=== PATIENT | male | born 1945 | race Caucasian/White ===

== ENCOUNTER 2017-09-25 16:47 | Inpatient (IN) | payer BC, MEDICARE, OTHER ==
[~2017-09-25] VITALS: Ht 175.3 cm; Wt 107.2 kg
[2017-09-25 17:25] LABS: BASO # 0.1 x10^3/uL (0.0-0.2); BASO % 1 % (0-3); EOS # 0.2 x10^3/uL (0.0-0.7); EOS % 3 % (0-3); HEMATOCRIT 40.1 % (39.0-53.0); HEMOGLOBIN 13.2 g/dL (13.0-17.5); LYMPH # 2.3 x10^3/uL (1.0-4.8); LYMPH % 31 % (24-48); MEAN CORPUSCULAR HEMOGLOBIN 28 pg (25-35); MEAN CORPUSCULAR HGB CONC 33 g/dL (31-37); MEAN CORPUSCULAR VOLUME 85 fL (79-100); MONO # 0.9 x10^3/uL (0.0-1.1); MONO % 11 % (0-9); NEUT # 4.1 x10^3uL (1.8-7.7); NEUT % 54 % (31-73); PLATELET COUNT 168 x10^3/uL (140-400); RED BLOOD COUNT 4.72 x10^6/uL (4.30-5.70); RED CELL DISTRIBUTION WIDTH 15.8 % (11.5-14.5); WHITE BLOOD COUNT 7.5 x10^3/uL (4.0-11.0)
[2017-09-25 17:36] LABS: ALBUMIN 2.9 g/dL (3.4-5.0); ALBUMIN/GLOBULIN RATIO 0.7 (1.0-1.7); CALCIUM 8.7 mg/dL (8.5-10.1); CREATININE 1.1 mg/dL (0.7-1.3); MAGNESIUM 1.9 mg/dL (1.8-2.4); TOTAL BILIRUBIN 0.3 mg/dL (0.2-1.0)
[2017-09-25 17:44] LABS: BACTERIA,URINE 0 /HPF (0-FEW); BILIRUBIN,URINE NEG (NEG); CLARITY,URINE CLEAR; COLOR,URINE YELLOW; GLUCOSE,URINE NEG (NEG); NITRITE,URINE NEG (NEG); RBC,URINE 0 /HPF (0-2); SQUAMOUS EPITHELIAL CELL,UR OCC /LPF; UROBILINOGEN,URINE 1 mg/dL (0.2 mg/dL); WBC,URINE OCC /HPF (0-4)
[2017-09-25 17:46] LABS: VAL ACID < 3 mcg/mL (50-100)
--- NOTE | 2017-09-25 17:47 | RAD ---
EXAM: Head CT without contrast. HISTORY: Altered mental status. TECHNIQUE: Computed tomographic images of the head were obtained without contrast. *One or more of the following individualized dose reduction techniques were utilized for this examination: 1. Automated exposure control. 2. Adjustment of the mA and/or kV according to patient size. 3. Use of iterative reconstruction technique. COMPARISON: None. FINDINGS: There is no acute or subacute extra-axial or intraparenchymal hemorrhage. There is no mass effect or midline shift. There is no hydrocephalus. There is cerebral atrophy. There are areas of hypodensity within the cerebral white matter, likely due to chronic small vessel disease. There may be a tiny chronic lacunar infarct within the left thalamus. The orbits are unremarkable. There is mild posterior right ethmoid sinus mucosal thickening. The mastoid air cells are clear. There are multiple calvarial lupillo holes. IMPRESSION: 1. No acute intracranial finding. Note is made that MRI is more sensitive for acute infarction. 2. Scattered areas of hypodensity within the cerebral white matter, likely due to chronic small vessel disease. 3. Possible tiny chronic lacunar infarct or dilated perivascular space within the left thalamus. Electronically signed by: Zita Kinney MD (09/25/2017 5:44 PM) [facility]
--- NOTE | 2017-09-25 18:11 | EKG ---
[address] [address] Test Date: 2017-09-25 Test Time: 17:49:36 Pat Name: ANDREE BURNETTE Department: Room: Gender: M Chief Accountant: CHRISTIANO : 1945 Requested By: JIMI ROSA Order Number: [id number] Reading MD: Ranjan Villanueva Measurements Intervals [place] Rate: 71 P: 49 MI: 178 QRS: -10 QRSD: 70 T: 16 QT: 374 QTc: 407 Interpretive Statements SINUS RHYTHM LEFTWARD AXIS QRS(T) CONTOUR ABNORMALITY CONSISTENT WITH INFERIOR INFARCT PROBABLY OLD ABNORMAL ECG RI6.01 No previous ECG available for comparison Electronically Signed On 10-08-2017 9:53:59 CDT by Ranjan Villanueva
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
--- NOTE | 2017-09-25 20:57 | PDOC ---
Exam Note: Anderson Note: Please also refer to the separate dictated note~for this date of service dictated separately.~Patient seen individually. Discussed the patient with Nursing staff reviewed the chart.~Reviewed interim history and current functioning. Reviewed vital signs,~Labs/ Radiology~and current medications noted below. Continue current treatment with the changes noted in the dictated addendum note Assessment: Vital Signs: Vital Signs Date Time Temp Pulse Resp B/P (MAP) Pulse Ox O2 Delivery O2 Flow Rate FiO2 09/25/17 18:50 84 18 162/91 (114) 97 Room Air 09/25/17 16:47 97.3 Labs: Laboratory Tests Test 09/25/17 17:04 09/25/17 17:10 White Blood Count 7.5 x10^3/uL (4.0-11.0) Red Blood Count 4.72 x10^6/uL (4.30-5.70) Hemoglobin 13.2 g/dL (13.0-17.5) Hematocrit 40.1 % (39.0-53.0) Mean Corpuscular Volume 85 fL (79-100) Mean Corpuscular Hemoglobin 28 pg (25-35) Mean Corpuscular Hemoglobin Concent 33 g/dL (31-37) Red Cell Distribution Width 15.8 % (11.5-14.5) H Platelet Count 168 x10^3/uL (140-400) Neutrophils (%) (Auto) 54 % (31-73) Lymphocytes (%) (Auto) 31 % (24-48) Monocytes (%) (Auto) 11 % (0-9) H Eosinophils (%) (Auto) 3 % (0-3) Basophils (%) (Auto) 1 % (0-3) Neutrophils # (Auto) 4.1 x10^3uL (1.8-7.7) Lymphocytes # (Auto) 2.3 x10^3/uL (1.0-4.8) Monocytes # (Auto) 0.9 x10^3/uL (0.0-1.1) Eosinophils # (Auto) 0.2 x10^3/uL (0.0-0.7) Basophils # (Auto) 0.1 x10^3/uL (0.0-0.2) Sodium Level 145 mmol/L (136-145) Potassium Level 4.0 mmol/L (3.5-5.1) Chloride Level 106 mmol/L (98-107) Carbon Dioxide Level 32 mmol/L (21-32) Anion Gap 7 (6-14) Blood Urea Nitrogen 13 mg/dL (8-26) Creatinine 1.1 mg/dL (0.7-1.3) Estimated GFR (Cockcroft-Gault) 66.0 BUN/Creatinine Ratio 12 (6-20) Glucose Level 144 mg/dL (70-99) H Calcium Level 8.7 mg/dL (8.5-10.1) Magnesium Level 1.9 mg/dL (1.8-2.4) Total Bilirubin 0.3 mg/dL (0.2-1.0) Aspartate Amino Transferase (AST) 21 U/L (15-37) Alanine Aminotransferase (ALT) 20 U/L (16-63) Alkaline Phosphatase 90 U/L (46-116) Total Protein 7.0 g/dL (6.4-8.2) Albumin 2.9 g/dL (3.4-5.0) L Albumin/Globulin Ratio 0.7 (1.0-1.7) L Lipase 85 U/L (73-393) Valproic Acid Level < 3 mcg/mL (50-100) L Valproic Acid Last Dose Date 09/25/14 Valproic Acid Last Dose Time 0800 Urine Collection Type Unknown Urine Color Yellow Urine Clarity Clear Urine pH 6.5 Urine Specific [place] 1.025 Urine Protein Neg (NEG-TRACE) Urine Glucose (UA) Neg mg/dL (NEG) Urine Ketones (Stick) 15 mg/dL (NEG) Urine Blood Neg (NEG) Urine Nitrite Neg (NEG) Urine Bilirubin Neg (NEG) Urine Urobilinogen Dipstick 1 mg/dL (0.2 mg/dL) Urine Leukocyte Esterase Neg (NEG) Urine RBC 0 /HPF (0-2) Urine WBC Occ /HPF (0-4) Urine Squamous Epithelial Cells Occ /LPF Urine Bacteria 0 /HPF (0-FEW) Urine Mucus Mod /LPF Current Medications: I have reviewed the current psychotropics carefully including drug interactions. Risk benefit ratio favors no change other than as noted in my dictated progress note. Diagnosis: Problems: (1) Mood swings (2) Aggressive behavior (3) Medical clearance for psychiatric admission ARLYN APPIAH MD Sep 25, 2017 20:57
[2017-09-25] MEDS ORDERED: MAGN2400 PO (21:00)
[2017-09-25] MEDS ORDERED: MULT1TAB52 PO (21:00)
[2017-09-25] MEDS ORDERED: METO25TA4 PO (21:00)
[2017-09-25] MEDS ORDERED: DONE10TA61 PO (21:00)
[2017-09-25] MEDS ORDERED: CHOL10003 PO (21:00)
[2017-09-25] MEDS ORDERED: TRAZ50TA15 PO (21:00)
[2017-09-25] MEDS ORDERED: TAMS0.4C2 PO (21:00)
[2017-09-25] MEDS ORDERED: METF10003 PO (21:00)
[2017-09-25] MEDS ORDERED: OLAN15TA3 PO (21:00)
[2017-09-25] MEDS ORDERED: OLAN7.5T3 PO (21:00)
[2017-09-25] MEDS ORDERED: ATOR40TA59 PO (21:00)
[2017-09-25] MEDS ORDERED: ACET325T9 PO (21:00)
[2017-09-25] MEDS ORDERED: VENL150C6 PO (21:00)
[2017-09-25] MEDS ORDERED: SODI100P DT (21:00)
[2017-09-25] MEDS ORDERED: ASPI-630 PO (21:00)
[2017-09-25] MEDS ORDERED: MEMA10TA PO (21:00)
[2017-09-25] MEDS ORDERED: DIVA250T PO (21:00)
[2017-09-25] MEDS ORDERED: GLIP5TAB10 PO (21:00)
[2017-09-25] MEDS ORDERED: POLY17PO5 PO (21:00)
[2017-09-25] MEDS ORDERED: GLIP10TA13 PO (21:00)
[2017-09-25] MEDS ORDERED: BUSP10TA PO (21:00)
[2017-09-25] MEDS ORDERED: ACETAMINOPHEN 325 MG TABLET PO PRN ×2 (21:15)
[2017-09-25] MEDS ORDERED: MAGNESIUM HYDROXIDE 2,400 MG/30 ML ORAL.SUSP. PO PRN ×2 (21:15→21:30)
[2017-09-25] MEDS ORDERED: METHYL SALICYLATE/MENTHOL TOPICAL OINTMENT 29GM TUBE. TP PRN (21:15)
[2017-09-25] MEDS ORDERED: MAG HYDROX/AL HYDROX/SIMETH 30 ML ORAL.SUSP PO PRN (21:15)
[2017-09-25] MEDS: DONEPEZIL HCL 10 MG TABLET PO SCH (21:50)
[2017-09-25] MEDS: ATORVASTATIN CALCIUM 20 MG TABLET PO SCH (21:51)
[2017-09-25] MEDS: traZODone 50 MG TABLET. PO SCH (21:51)
[2017-09-25] MEDS: VENLAFAXINE 50 MG TABLET. PO SCH (21:51)
[2017-09-25] MEDS: DIVALPROEX ER 250 MG TAB.ER.24H. PO SCH (21:51)
[2017-09-25] MEDS: busPIRone 10 MG TABLET. PO SCH (21:51)
[2017-09-25] MEDS: METOPROLOL TART IMMED RELEASE 25 MG TABLET PO SCH (21:52)
[2017-09-25] MEDS: MEMANTINE 5 MG TABLET. PO SCH (21:52)
[2017-09-25 22:28] VITALS: BP 172/72
[2017-09-26 06:27] VITALS: BP 158/82
[2017-09-26] MEDS ORDERED: POTASSIUM NITRATE DT SCH (08:30)
[2017-09-26] MEDS ORDERED: SODIUM FLUORIDE DT SCH (08:30)
[2017-09-26] MEDS ORDERED: NON FORMULARY ITEM (Glipizide 10 MG) PO SCH (09:00)
[2017-09-26] MEDS: MEMANTINE 5 MG TABLET. PO SCH ×2 (09:05→20:03)
[2017-09-26] MEDS: METOPROLOL TART IMMED RELEASE 25 MG TABLET PO SCH ×2 (09:05→20:03)
[2017-09-26] MEDS: busPIRone 10 MG TABLET. PO SCH ×3 (09:05→20:01)
[2017-09-26] MEDS: VENLAFAXINE 50 MG TABLET. PO SCH ×3 (09:05→20:02)
[2017-09-26] MEDS: DIVALPROEX ER 250 MG TAB.ER.24H. PO SCH ×2 (09:05→20:02)
[2017-09-26] MEDS: glipiZIDE 5 MG TABLET PO SCH (09:08)
[2017-09-26] MEDS: TAMSULOSIN 0.4 MG CAP.ER.24H. PO SCH (09:08)
[2017-09-26] MEDS: OLANZapine 7.5 MG TABLET PO SCH (09:08)
[2017-09-26] MEDS: POLYETHYLENE GLYCOL 3350 17 GM PACKET. PO SCH (09:08)
[2017-09-26] MEDS: MULTIVITAMIN with MINERAL TABLET. PO SCH (09:08)
[2017-09-26] MEDS: ASPIRIN 81 MG TAB.CHEW PO SCH (09:08)
[2017-09-26] MEDS: CHOLECALCIFEROL (VITAMIN D3) 1,000 UNIT TABLET PO SCH (09:08)
[2017-09-26] MEDS: metFORMIN 500 MG TABLET PO SCH ×2 (09:09→18:14)
[2017-09-26 14:31] LABS: THYROID STIM HORMONE (TSH) 7.028 uIU/mL (0.358-3.740)
[2017-09-26 15:56] VITALS: BP 134/68
[2017-09-26 19:12] LABS: T3 TOTAL 95 ng/dL (71-180); THYROXINE 5.3 ug/dL (4.5-12.0)
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
[2017-09-26] MEDS: DONEPEZIL HCL 10 MG TABLET PO SCH (20:01)
[2017-09-26] MEDS: ATORVASTATIN CALCIUM 20 MG TABLET PO SCH (20:02)
[2017-09-26] MEDS: traZODone 50 MG TABLET. PO SCH (20:02)
--- NOTE | 2017-09-26 20:35 | PDOC ---
Exam Note: Anderson Note: Please also refer to the separate dictated note~for this date of service dictated separately.~Patient seen individually. Discussed the patient with Nursing staff reviewed the chart.~Reviewed interim history and current functioning. Reviewed vital signs,~Labs/ Radiology~and current medications noted below. Continue current treatment with the changes noted in the dictated addendum note Assessment: Vital Signs: Vital Signs Date Time Temp Pulse Resp B/P (MAP) Pulse Ox O2 Delivery O2 Flow Rate FiO2 09/26/17 20:03 79 134/68 09/26/17 15:56 98.0 17 96 09/25/17 20:10 Room Air I&O Intake and Output 09/26/17 07:00 Intake Total 240 ml Balance 240 ml Intake Oral 240 ml # Voids 1 Labs: Laboratory Tests Test 09/26/17 07:57 09/26/17 11:25 Glucose (Fingerstick) 126 mg/dL (70-99) H 183 mg/dL (70-99) H Current Medications: Meds: Current Medications Acetaminophen (Tylenol) 650 mg PRN Q6HRS PRN PO PAIN / TEMP; Start 09/25/17 at 21:15 Multi-Ingredient Ointment (Analgesic [place]) 1 nica PRN QID PRN TP MUSCLE PAIN; Start 09/25/17 at 21:15 Al Hydroxide/Mg Hydroxide (Mylanta Plus Xs) 15 ml PRN AFTMEALHC PRN PO DYSPEPSIA; Start 09/25/17 at 21:15 Magnesium Hydroxide (Milk Of Magnesia) 2,400 mg PRN QHS PRN PO CONSTIPATION; Start 09/25/17 at 21:15; Stop 09/25/17 at 21:25; Status DC Buspirone HCl (Buspar) 20 mg TID PO Last administered on 09/26/17at 20:01; Start 09/25/17 at 21:30 Divalproex Sodium (Depakote Er) 750 mg BID PO Last administered on 09/26/17at 20 :02; Start 09/25/17 at 21:30 Donepezil HCl (Aricept) 10 mg HS PO Last administered on 09/26/17at 20:01; Start 09/25/17 at 21:30 Memantine (Namenda) 5 mg BID PO Last administered on 09/26/17at 20:03; Start at 21:30 Olanzapine (ZyPREXA) 7.5 mg DAILY PO Last administered on 09/26/17 09:08; Start 09/26/17 at 09:00 Trazodone HCl (Desyrel) 50 mg QHS PO Last administered on 09/26/17 20:02; Start 09/25/17 at 21:30 Venlafaxine HCl (Effexor) 50 mg TID PO Last administered on 09/26/17 20:02; Start 09/25/17 at 21:30 Acetaminophen (Tylenol) 650 mg PRN Q6HRS PRN PO PAIN / TEMP; Start 09/25/17 at 21:15; Stop 09/25/17 at 21:18; Status DC Aspirin (Children'S Aspirin) 81 mg DAILY PO Last administered on 09/26/17 09: 08; Start 09/26/17 at 09:00 Vitamin D (Vitamin D3) 2,000 unit DAILY PO Last administered on 09/26/17 09:08 ; Start 09/26/17 at 09:00 Glipizide (Glucotrol) 15 mg DAILY PO Last administered on 09/26/17 09:08; Start 09/26/17 at 09:00 Metoprolol Tartrate (Lopressor) 25 mg BID PO Last administered on 09/26/17 20: 03; Start 09/25/17 at 21:30 Polyethylene Glycol (miraLAX) 17 gm DAILY PO Last administered on 09/26/17 09: 08; Start 09/26/17 at 09:00 Tamsulosin HCl (Flomax) 0.4 mg DAILY PO Last administered on 09/26/17 09:08; Start 09/26/17 at 09:00 Atorvastatin Calcium (Lipitor) 40 mg QHS PO Last administered on 09/26/17 20: 02; Start 09/25/17 at 21:30 Non-Formulary Medication (Glipizide ) 10 mg DAILY PO ; Start 09/26/17 at 09:00; Stop 09/26/17 at 09:00; Status DC Magnesium Hydroxide (Milk Of Magnesia) 4,800 mg PRN Q8HRS PRN PO CONSTIPATION; Start 09/25/17 at 21:30 Metformin HCl (Glucophage) 1,000 mg BIDWMEALS PO Last administered on at 18:14; Start 09/26/17 at 08:00 Multivitamins/ Calcium (Thera-M Plus) 1 tab DAILY PO Last administered on at 09:08; Start 09/26/17 at 09:00 Non-Formulary Medication (Sodium Fluoride/ Pot Nitrate (Prevident 5000 Enamel Protect)) 1 nica TIDPC DT ; Start 09/26/17 at 08:30; Stop 09/26/17 at 08:30; Status DC Active Scripts Active Reported Zyprexa (Olanzapine) 15 Mg Tablet 15 Mg PO Zyprexa (Olanzapine) 7.5 Mg Tablet 7.5 Mg PO DAILY Venlafaxine Hcl Er (Venlafaxine Hcl) 150 Mg Cap.er.24h 150 Mg PO DAILY Trazodone Hcl 50 Mg Tablet 50 Mg PO QHS Prevident 5000 Enamel Protect (Sodium Fluoride/Pot Nitrate) 100 Ml Paste..ml. 1 Nica DT TIDPC Miralax (Polyethylene Glycol 3350) 17 Gm Powd.pack 17 Gm PO DAILY Namenda (Memantine Hcl) 10 Mg Tablet 5 Mg PO BID Multivitamins (Multivitamin) 1 Each Tablet 1 Each PO DAILY Milk Of Magnesia (Magnesium Hydroxide) 2,400 Mg/10 Ml Oral.susp 4,800 Mg PO PRN Q8HRS PRN Metoprolol Tartrate 25 Mg Tablet 25 Mg PO BID Metformin Hcl 1,000 Mg Tablet 1,000 Mg PO BID Glipizide 5 Mg Tablet 5 Mg PO DAILY Glipizide 10 Mg Tablet 10 Mg PO DAILY Tamsulosin Hcl 0.4 Mg Cap.er.24h 0.4 Mg PO DAILY Depakote Er (Divalproex Sodium) 250 Mg Tab.er.24h 750 Mg PO BID Vitamin D3 (Cholecalciferol (Vitamin D3)) 1,000 Unit Tablet 2,000 Unit PO DAILY Buspirone Hcl 10 Mg Tablet 20 Mg PO TID Atorvastatin Calcium 40 Mg Tablet 40 Mg PO QHS Aspirin 81 Mg Tab.chew 81 Mg PO DAILY Aricept (Donepezil Hcl) 10 Mg Tablet 10 Mg PO HS Tylenol (Acetaminophen) 325 Mg Tablet 650 Mg PO PRN Q6HRS PRN I have reviewed the current psychotropics carefully including drug interactions. Risk benefit ratio favors no change other than as noted in my dictated progress note. Diagnosis: Problems: (1) Aggressive behavior (2) Medical clearance for psychiatric admission (3) Mood swings (4) Anxiety disorder (5) Dementia in Alzheimer's disease with delusions (6) Dementia in Alzheimer's disease with depression (7) Dementia, vascular, with delusions (8) Dementia, vascular, with depression (9) Impulse control disorder ARLYN APPIAH MD Sep 26, 2017 20:34
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
[2017-09-27 02:08] LABS: HEMOGLOBIN A1C 6.6 % (4.8-5.6)
[2017-09-27 06:22] VITALS: BP 148/79
[2017-09-27] MEDS: POLYETHYLENE GLYCOL 3350 17 GM PACKET. PO SCH (08:06)
[2017-09-27] MEDS: OLANZapine 7.5 MG TABLET PO SCH (08:10)
[2017-09-27] MEDS: DIVALPROEX ER 250 MG TAB.ER.24H. PO SCH (08:10)
[2017-09-27] MEDS: MULTIVITAMIN with MINERAL TABLET. PO SCH (08:10)
[2017-09-27] MEDS: ASPIRIN 81 MG TAB.CHEW PO SCH (08:11)
[2017-09-27] MEDS: VENLAFAXINE 50 MG TABLET. PO SCH ×2 (08:11→13:42)
[2017-09-27] MEDS: metFORMIN 500 MG TABLET PO SCH ×2 (08:11→17:27)
[2017-09-27] MEDS: TAMSULOSIN 0.4 MG CAP.ER.24H. PO SCH (08:11)
[2017-09-27] MEDS: MEMANTINE 5 MG TABLET. PO SCH ×2 (08:11→19:49)
[2017-09-27] MEDS: glipiZIDE 5 MG TABLET PO SCH (08:11)
[2017-09-27] MEDS: busPIRone 10 MG TABLET. PO SCH ×2 (08:11→19:52)
[2017-09-27] MEDS: CHOLECALCIFEROL (VITAMIN D3) 1,000 UNIT TABLET PO SCH (08:11)
[2017-09-27] MEDS: METOPROLOL TART IMMED RELEASE 25 MG TABLET PO SCH ×2 (08:12→19:49)
--- NOTE | 2017-09-27 10:20 | CONS ---
DATE OF CONSULTATION: 09/26/2017 REASON FOR CONSULTATION: Medical management. HISTORY OF PRESENT ILLNESS: The patient is a 72-year-old male patient, a resident of [facility], who was admitted on the account of being impulsive, combative with the resident. All this in the background of dementia with behavioral disorder and delusion. PAST MEDICAL HISTORY: Significant for type 2 diabetes, heart disease and subdural hemorrhage. PAST PSYCHIATRIC HISTORY: Significant for posttraumatic stress disorder, schizoaffective disorder, dementia, major depressive disorder and anxiety. PAST SURGICAL HISTORY: Unremarkable. SOCIAL HISTORY: He is a resident at [facility]. He does not smoke, drink alcohol or use any recreational drugs. ALLERGIES: He has no known drug allergies. MEDICATIONS: He is currently on following medications: He is on Aricept 10 mg at bedtime, tamsulosin 0.4 mg at bedtime, atorvastatin 40 mg at bedtime, metoprolol 25 mg twice a day, aspirin 81 mg once a day, Tylenol 650 mg every 6 hours, divalproex sodium 750 mg p.o. b.i.d., trazodone 50 mg at bedtime, venlafaxine 150 mg daily and olanzapine 7.5 mg daily, olanzapine 50 mg at bedtime, buspirone 20 mg 3 times a day, Namenda 5 mg twice a day, milk of magnesia 30 mL p.o. daily p.r.n. for constipation, polyethylene glycol 17 grams daily for constipation, metformin 1000 mg twice a day, glipizide 10 mg daily, vitamin D3 2000 international unit once a day, multivitamin 1 tablet once a day. FAMILY HISTORY: Unremarkable. SOCIAL HISTORY: He is a resident at [facility]. REVIEW OF SYSTEMS: As per history of present illness. PHYSICAL EXAMINATION GENERAL: When I saw him this afternoon, he was sitting in his chair, eating his supper and in no apparent distress. There is no pallor, jaundice, cyanosis, or thyromegaly. No jugular venous distension. No lower limb edema. VITAL SIGNS: His heart rate was 79, blood pressure 134/68, temperature was 98, respiratory rate was 17 and oxygen saturation was 96. NECK: Supple. HEART: Showed normal first and second sounds. No gallop, rub or murmur. CHEST: Clear to auscultation. No crepitation or rhonchi. ABDOMEN: Distended, soft, tender. NEUROLOGIC: He is awake, alert, responding appropriately. All cranial nerves intact. EXTREMITIES: He moves extremities without difficulty. He is mostly bedbound and wheelchair bound. LABORATORY DATA: Showed a white cell count 7500, hemoglobin 13, hematocrit 40, MCV 85 and platelet count of 168,000. His chemistry showed serum sodium of 145, potassium 4, chloride 106, bicarbonate 32, anion gap of 7, BUN 13, creatinine 1.1, estimated GFR was 66 mL per minute. His glucose was 144, calcium was 8.7, magnesium was 1.9. Total bilirubin, AST, ALT, alkaline phosphatase were normal. His total protein 7, albumin was 2.9. His lipase was 85. His serum iron was 52, TIBC was 262, percent saturation was 20%. His serum triglycerides 117, total cholesterol was 89, LDL was 56, VLDL was 23, HDL cholesterol was 30 and the ratio was 2. His vitamin B12 was 371, 25-hydroxy vitamin D was 33 and TSH was slightly elevated at 7.0-8. His urinalysis showed the urine was yellow, clear with a pH of 6.5, specific gravity of 1.025. The urine was negative for protein and glucose. There was trace of ketones, negative for blood, nitrite and leukocyte esterase, 0 rbc's and 0 wbc's, and no bacteria. His toxic screen showed valproic acid was less than 3. His CT scan of the head showed no acute intracranial finding. Note is made that MRI is more sensitive for acute infarction, scattered areas of hypodensity within the cerebral white matter, likely due to chronic small vessel disease, possible tiny chronic lacunar infarct with dilated perivascular space within the left thalamus. IMPRESSION: In summary, this is a 72-year-old male patient, who was admitted on the account of pulse being impulsive, combative with resident. All this in a background of dementia with behavioral disorder and delusions. His past medical history is significant for benign prostatic hypertrophy, hyperlipidemia, hypertension, type 2 diabetes. His vital signs and lab works seems all to be within acceptable range. His TSH slightly elevated, so I arranged for him to have T3, T4, free T4, and we will decide on further management accordingly. Thank you, Dr. Infante for allowing me to participate in the care of this patient. SHERRIE ZARATE MD DR: SHARAD/phuc JOB#: [id number] / [id number]
[2017-09-27 16:40] VITALS: BP 148/81
[2017-09-27] MEDS: ATORVASTATIN CALCIUM 20 MG TABLET PO SCH (19:48)
[2017-09-27] MEDS: traZODone 50 MG TABLET. PO SCH (19:48)
[2017-09-27] MEDS: DONEPEZIL HCL 10 MG TABLET PO SCH (19:49)
[2017-09-27] MEDS: DIVALPROEX 125 MG CAP.SPRINK PO SCH (19:52)
[2017-09-27] MEDS: PRAZOSIN 1 MG CAPSULE. PO SCH (19:54)
[2017-09-27] MEDS ORDERED: busPIRone 10 MG TABLET. PO SCH ×2 (21:00)
--- NOTE | 2017-09-27 21:18 | PDOC ---
Exam Note: Anderson Note: Please also refer to the separate dictated note~for this date of service dictated separately.~Patient seen individually. Discussed the patient with Nursing staff reviewed the chart.~Reviewed interim history and current functioning. Reviewed vital signs,~Labs/ Radiology~and current medications noted below. Continue current treatment with the changes noted in the dictated addendum note Assessment: Vital Signs: Vital Signs Date Time Temp Pulse Resp B/P (MAP) Pulse Ox O2 Delivery O2 Flow Rate FiO2 09/27/17 19:54 80 148/81 09/27/17 16:40 97.3 18 97 09/25/17 20:10 Room Air I&O Intake and Output 09/27/17 07:00 Intake Total 1200 ml Balance 1200 ml Intake Oral 1200 ml # Voids 1 # Bowel Movements 1 Labs: Laboratory Tests Test 09/27/17 07:22 Glucose (Fingerstick) 113 mg/dL (70-99) H Current Medications: Meds: Current Medications Acetaminophen (Tylenol) 650 mg PRN Q6HRS PRN PO PAIN / TEMP; Start 09/25/17 at 21:15 Multi-Ingredient Ointment (Analgesic [place]) 1 nica PRN QID PRN TP MUSCLE PAIN; Start 09/25/17 at 21:15 Al Hydroxide/Mg Hydroxide (Mylanta Plus Xs) 15 ml PRN AFTMEALHC PRN PO DYSPEPSIA; Start 09/25/17 at 21:15 Magnesium Hydroxide (Milk Of Magnesia) 2,400 mg PRN QHS PRN PO CONSTIPATION; Start 09/25/17 at 21:15; Stop 09/25/17 at 21:25; Status DC Buspirone HCl (Buspar) 20 mg TID PO Last administered on 09/27/17at 08:11; Start 09/25/17 at 21:30; Stop 09/27/17 at 13:30; Status DC Divalproex Sodium (Depakote Er) 750 mg BID PO Last administered on 09/27/17at 08 :10; Start 09/25/17 at 21:30; Stop 09/27/17 at 13:30; Status DC Donepezil HCl (Aricept) 10 mg HS PO Last administered on 09/27/17at 19:49; Start 09/25/17 at 21:30 Memantine (Namenda) 5 mg BID PO Last administered on 09/27/17 19:49; Start at 21:30 Olanzapine (ZyPREXA) 7.5 mg DAILY PO Last administered on 09/27/17 08:10; Start 09/26/17 at 09:00; Stop 09/27/17 at 13:30; Status DC Trazodone HCl (Desyrel) 50 mg QHS PO Last administered on 09/27/17 19:48; Start 09/25/17 at 21:30 Venlafaxine HCl (Effexor) 50 mg TID PO Last administered on 09/27/17 13:42; Start 09/25/17 at 21:30; Stop 09/27/17 at 18:11; Status DC Acetaminophen (Tylenol) 650 mg PRN Q6HRS PRN PO PAIN / TEMP; Start 09/25/17 at 21:15; Stop 09/25/17 at 21:18; Status DC Aspirin (Children'S Aspirin) 81 mg DAILY PO Last administered on 09/27/17 08: 11; Start 09/26/17 at 09:00 Vitamin D (Vitamin D3) 2,000 unit DAILY PO Last administered on 09/27/17 08:11 ; Start 09/26/17 at 09:00 Glipizide (Glucotrol) 15 mg DAILY PO Last administered on 09/27/17 08:11; Start 09/26/17 at 09:00 Metoprolol Tartrate (Lopressor) 25 mg BID PO Last administered on 09/27/17 19: 49; Start 09/25/17 at 21:30 Polyethylene Glycol (miraLAX) 17 gm DAILY PO Last administered on 09/27/17at 08: 06; Start 09/26/17 at 09:00 Tamsulosin HCl (Flomax) 0.4 mg DAILY PO Last administered on 09/27/17 08:11; Start 09/26/17 at 09:00 Atorvastatin Calcium (Lipitor) 40 mg QHS PO Last administered on 09/27/17 19: 48; Start 09/25/17 at 21:30 Non-Formulary Medication (Glipizide ) 10 mg DAILY PO ; Start 09/26/17 at 09:00; Stop 09/26/17 at 09:00; Status DC Magnesium Hydroxide (Milk Of Magnesia) 4,800 mg PRN Q8HRS PRN PO CONSTIPATION; Start 09/25/17 at 21:30 Metformin HCl (Glucophage) 1,000 mg BIDWMEALS PO Last administered on at 17:27; Start 09/26/17 at 08:00 Multivitamins/ Calcium (Thera-M Plus) 1 tab DAILY PO Last administered on at 08:10; Start 09/26/17 at 09:00 Non-Formulary Medication (Sodium Fluoride/ Pot Nitrate (Prevident 5000 Enamel Protect)) 1 nica TIDPC DT ; Start 09/26/17 at 08:30; Stop 09/26/17 at 08:30; Status DC Buspirone HCl (Buspar) 20 mg BID PO ; Start 09/27/17 at 21:00; Stop 09/27/17 at 21:00; Status DC Olanzapine (ZyPREXA) 5 mg DAILY PO ; Start 09/28/17 at 09:00 Divalproex Sodium (Depakote Sprinkles) 750 mg BID PO Last administered on at 19:52; Start 09/27/17 at 21:00 Buspirone HCl (Buspar) 10 mg BID PO ; Start 09/27/17 at 21:00; Stop 09/30/17 at 09:00; Status UNV Prazosin HCl (Minipress) 1 mg HS PO Last administered on 09/27/17at 19:54; Start 09/27/17 at 21:00 Buspirone HCl (Buspar) 10 mg BID PO ; Start 09/30/17 at 09:00 Buspirone HCl (Buspar) 20 mg BID PO Last administered on 09/27/17at 19:52; Start 09/27/17 at 21:00; Stop 09/29/17 at 21:01 Venlafaxine HCl (Effexor) 75 mg BID92 PO ; Start 09/28/17 at 09:00 Active Scripts Active Reported Zyprexa (Olanzapine) 15 Mg Tablet 15 Mg PO Zyprexa (Olanzapine) 7.5 Mg Tablet 7.5 Mg PO DAILY Venlafaxine Hcl Er (Venlafaxine Hcl) 150 Mg Cap.er.24h 150 Mg PO DAILY Trazodone Hcl 50 Mg Tablet 50 Mg PO QHS Prevident 5000 Enamel Protect (Sodium Fluoride/Pot Nitrate) 100 Ml Paste..ml. 1 Nica DT TIDPC Miralax (Polyethylene Glycol 3350) 17 Gm Powd.pack 17 Gm PO DAILY Namenda (Memantine Hcl) 10 Mg Tablet 5 Mg PO BID Multivitamins (Multivitamin) 1 Each Tablet 1 Each PO DAILY Milk Of Magnesia (Magnesium Hydroxide) 2,400 Mg/10 Ml Oral.susp 4,800 Mg PO PRN Q8HRS PRN Metoprolol Tartrate 25 Mg Tablet 25 Mg PO BID Metformin Hcl 1,000 Mg Tablet 1,000 Mg PO BID Glipizide 5 Mg Tablet 5 Mg PO DAILY Glipizide 10 Mg Tablet 10 Mg PO DAILY Tamsulosin Hcl 0.4 Mg Cap.er.24h 0.4 Mg PO DAILY Depakote Er (Divalproex Sodium) 250 Mg Tab.er.24h 750 Mg PO BID Vitamin D3 (Cholecalciferol (Vitamin D3)) 1,000 Unit Tablet 2,000 Unit PO DAILY Buspirone Hcl 10 Mg Tablet 20 Mg PO TID Atorvastatin Calcium 40 Mg Tablet 40 Mg PO QHS Aspirin 81 Mg Tab.chew 81 Mg PO DAILY Aricept (Donepezil Hcl) 10 Mg Tablet 10 Mg PO HS Tylenol (Acetaminophen) 325 Mg Tablet 650 Mg PO PRN Q6HRS PRN I have reviewed the current psychotropics carefully including drug interactions. Risk benefit ratio favors no change other than as noted in my dictated progress note. Diagnosis: Problems: (1) Aggressive behavior (2) Medical clearance for psychiatric admission (3) Mood swings (4) Anxiety disorder (5) Dementia in Alzheimer's disease with delusions (6) Dementia in Alzheimer's disease with depression (7) Dementia, vascular, with delusions (8) Dementia, vascular, with depression (9) Impulse control disorder ARLYN APPIAH MD Sep 27, 2017 21:18
[2017-09-28 06:04] VITALS: BP 126/63
[2017-09-28 08:13] LABS: VAL ACID 56 mcg/mL (50-100)
[2017-09-28] MEDS: glipiZIDE 5 MG TABLET PO SCH (08:36)
[2017-09-28] MEDS: TAMSULOSIN 0.4 MG CAP.ER.24H. PO SCH (08:36)
[2017-09-28] MEDS: CHOLECALCIFEROL (VITAMIN D3) 1,000 UNIT TABLET PO SCH (08:37)
[2017-09-28] MEDS: busPIRone 10 MG TABLET. PO SCH ×2 (08:37→19:38)
[2017-09-28] MEDS: MEMANTINE 5 MG TABLET. PO SCH ×2 (08:37→19:38)
[2017-09-28] MEDS: METOPROLOL TART IMMED RELEASE 25 MG TABLET PO SCH ×2 (08:37→19:39)
[2017-09-28] MEDS: metFORMIN 500 MG TABLET PO SCH ×2 (08:37→17:17)
[2017-09-28] MEDS: ASPIRIN 81 MG TAB.CHEW PO SCH (08:37)
[2017-09-28] MEDS: MULTIVITAMIN with MINERAL TABLET. PO SCH (08:37)
[2017-09-28] MEDS: POLYETHYLENE GLYCOL 3350 17 GM PACKET. PO SCH (08:37)
[2017-09-28] MEDS: DIVALPROEX 125 MG CAP.SPRINK PO SCH ×2 (08:38→19:39)
[2017-09-28] MEDS: VENLAFAXINE 75 MG TABLET. PO SCH ×2 (08:41→14:43)
[2017-09-28] MEDS: OLANZapine 5 MG TABLET PO SCH (08:42)
[2017-09-28 16:35] VITALS: BP 129/72
[2017-09-28] MEDS: PRAZOSIN 1 MG CAPSULE. PO SCH (19:38)
[2017-09-28] MEDS: traZODone 50 MG TABLET. PO SCH (19:38)
[2017-09-28] MEDS: DONEPEZIL HCL 10 MG TABLET PO SCH (19:38)
[2017-09-28] MEDS: ATORVASTATIN CALCIUM 20 MG TABLET PO SCH (19:39)
--- NOTE | 2017-09-28 23:06 | PDOC ---
Exam Note: Anderson Note: Please also refer to the separate dictated note~for this date of service dictated separately.~Patient seen individually. Discussed the patient with Nursing staff reviewed the chart.~Reviewed interim history and current functioning. Reviewed vital signs,~Labs/ Radiology~and current medications noted below. Continue current treatment with the changes noted in the dictated addendum note Assessment: Vital Signs: Vital Signs Date Time Temp Pulse Resp B/P (MAP) Pulse Ox O2 Delivery O2 Flow Rate FiO2 09/28/17 19:39 77 129/72 09/28/17 16:35 97.4 16 95 09/25/17 20:10 Room Air I&O Intake and Output 09/28/17 07:00 Intake Total 1260 ml Balance 1260 ml Intake Oral 1260 ml # Voids 2 Labs: Laboratory Tests Test 09/28/17 07:26 09/28/17 07:37 Valproic Acid Level 56 mcg/mL (50-100) Valproic Acid Last Dose Date 09/27/2016 Valproic Acid Last Dose Time 0900 Glucose (Fingerstick) 207 mg/dL (70-99) H Current Medications: Meds: Current Medications Acetaminophen (Tylenol) 650 mg PRN Q6HRS PRN PO PAIN / TEMP; Start 09/25/17 at 21:15 Multi-Ingredient Ointment (Analgesic [place]) 1 nica PRN QID PRN TP MUSCLE PAIN; Start 09/25/17 at 21:15 Al Hydroxide/Mg Hydroxide (Mylanta Plus Xs) 15 ml PRN AFTMEALHC PRN PO DYSPEPSIA; Start 09/25/17 at 21:15 Magnesium Hydroxide (Milk Of Magnesia) 2,400 mg PRN QHS PRN PO CONSTIPATION; Start 09/25/17 at 21:15; Stop 09/25/17 at 21:25; Status DC Buspirone HCl (Buspar) 20 mg TID PO Last administered on 09/27/17at 08:11; Start 09/25/17 at 21:30; Stop 09/27/17 at 13:30; Status DC Divalproex Sodium (Depakote Er) 750 mg BID PO Last administered on 09/27/17at 08 :10; Start 09/25/17 at 21:30; Stop 09/27/17 at 13:30; Status DC Donepezil HCl (Aricept) 10 mg HS PO Last administered on 09/28/17 19:38; Start 09/25/17 at 21:30 Memantine (Namenda) 5 mg BID PO Last administered on 09/28/17 19:38; Start at 21:30 Olanzapine (ZyPREXA) 7.5 mg DAILY PO Last administered on 09/27/17 08:10; Start 09/26/17 at 09:00; Stop 09/27/17 at 13:30; Status DC Trazodone HCl (Desyrel) 50 mg QHS PO Last administered on 09/28/17 19:38; Start 09/25/17 at 21:30 Venlafaxine HCl (Effexor) 50 mg TID PO Last administered on 09/27/17 13:42; Start 09/25/17 at 21:30; Stop 09/27/17 at 18:11; Status DC Acetaminophen (Tylenol) 650 mg PRN Q6HRS PRN PO PAIN / TEMP; Start 09/25/17 at 21:15; Stop 09/25/17 at 21:18; Status DC Aspirin (Children'S Aspirin) 81 mg DAILY PO Last administered on 09/28/17 08: 37; Start 09/26/17 at 09:00 Vitamin D (Vitamin D3) 2,000 unit DAILY PO Last administered on 09/28/17 08:37 ; Start 09/26/17 at 09:00 Glipizide (Glucotrol) 15 mg DAILY PO Last administered on 09/28/17 08:36; Start 09/26/17 at 09:00 Metoprolol Tartrate (Lopressor) 25 mg BID PO Last administered on 09/28/17 19: 39; Start 09/25/17 at 21:30 Polyethylene Glycol (miraLAX) 17 gm DAILY PO Last administered on 09/28/17 08: 37; Start 09/26/17 at 09:00 Tamsulosin HCl (Flomax) 0.4 mg DAILY PO Last administered on 09/28/17 08:36; Start 09/26/17 at 09:00 Atorvastatin Calcium (Lipitor) 40 mg QHS PO Last administered on 09/28/17 19: 39; Start 09/25/17 at 21:30 Non-Formulary Medication (Glipizide ) 10 mg DAILY PO ; Start 09/26/17 at 09:00; Stop 09/26/17 at 09:00; Status DC Magnesium Hydroxide (Milk Of Magnesia) 4,800 mg PRN Q8HRS PRN PO CONSTIPATION; Start 09/25/17 at 21:30 Metformin HCl (Glucophage) 1,000 mg BIDWMEALS PO Last administered on at 17:17; Start 09/26/17 at 08:00 Multivitamins/ Calcium (Thera-M Plus) 1 tab DAILY PO Last administered on at 08:37; Start 09/26/17 at 09:00 Non-Formulary Medication (Sodium Fluoride/ Pot Nitrate (Prevident 5000 Enamel Protect)) 1 nica TIDPC DT ; Start 09/26/17 at 08:30; Stop 09/26/17 at 08:30; Status DC Buspirone HCl (Buspar) 20 mg BID PO ; Start 09/27/17 at 21:00; Stop 09/27/17 at 21:00; Status DC Olanzapine (ZyPREXA) 5 mg DAILY PO Last administered on 09/28/17at 08:42; Start 09/28/17 at 09:00 Divalproex Sodium (Depakote Sprinkles) 750 mg BID PO Last administered on at 19:39; Start 09/27/17 at 21:00 Buspirone HCl (Buspar) 10 mg BID PO ; Start 09/27/17 at 21:00; Stop 09/30/17 at 09:00; Status UNV Prazosin HCl (Minipress) 1 mg HS PO Last administered on 09/28/17at 19:38; Start 09/27/17 at 21:00 Buspirone HCl (Buspar) 10 mg BID PO ; Start 09/30/17 at 09:00 Buspirone HCl (Buspar) 20 mg BID PO Last administered on 09/28/17at 19:38; Start 09/27/17 at 21:00; Stop 09/29/17 at 21:01 Venlafaxine HCl (Effexor) 75 mg BID92 PO Last administered on 09/28/17at 14:43; Start 09/28/17 at 09:00 Active Scripts Active Reported Zyprexa (Olanzapine) 15 Mg Tablet 15 Mg PO Zyprexa (Olanzapine) 7.5 Mg Tablet 7.5 Mg PO DAILY Venlafaxine Hcl Er (Venlafaxine Hcl) 150 Mg Cap.er.24h 150 Mg PO DAILY Trazodone Hcl 50 Mg Tablet 50 Mg PO QHS Prevident 5000 Enamel Protect (Sodium Fluoride/Pot Nitrate) 100 Ml Paste..ml. 1 Nica DT TIDPC Miralax (Polyethylene Glycol 3350) 17 Gm Powd.pack 17 Gm PO DAILY Namenda (Memantine Hcl) 10 Mg Tablet 5 Mg PO BID Multivitamins (Multivitamin) 1 Each Tablet 1 Each PO DAILY Milk Of Magnesia (Magnesium Hydroxide) 2,400 Mg/10 Ml Oral.susp 4,800 Mg PO PRN Q8HRS PRN Metoprolol Tartrate 25 Mg Tablet 25 Mg PO BID Metformin Hcl 1,000 Mg Tablet 1,000 Mg PO BID Glipizide 5 Mg Tablet 5 Mg PO DAILY Glipizide 10 Mg Tablet 10 Mg PO DAILY Tamsulosin Hcl 0.4 Mg Cap.er.24h 0.4 Mg PO DAILY Depakote Er (Divalproex Sodium) 250 Mg Tab.er.24h 750 Mg PO BID Vitamin D3 (Cholecalciferol (Vitamin D3)) 1,000 Unit Tablet 2,000 Unit PO DAILY Buspirone Hcl 10 Mg Tablet 20 Mg PO TID Atorvastatin Calcium 40 Mg Tablet 40 Mg PO QHS Aspirin 81 Mg Tab.chew 81 Mg PO DAILY Aricept (Donepezil Hcl) 10 Mg Tablet 10 Mg PO HS Tylenol (Acetaminophen) 325 Mg Tablet 650 Mg PO PRN Q6HRS PRN I have reviewed the current psychotropics carefully including drug interactions. Risk benefit ratio favors no change other than as noted in my dictated progress note. Diagnosis: Problems: (1) Aggressive behavior (2) Medical clearance for psychiatric admission (3) Mood swings (4) Anxiety disorder (5) Dementia in Alzheimer's disease with delusions (6) Dementia in Alzheimer's disease with depression (7) Dementia, vascular, with delusions (8) Dementia, vascular, with depression (9) Impulse control disorder ARLYN APPIAH MD Sep 28, 2017 23:05
[2017-09-29 06:47] VITALS: BP 140/74
[2017-09-29] MEDS: VENLAFAXINE 75 MG TABLET. PO SCH ×2 (09:35→13:31)
[2017-09-29] MEDS: metFORMIN 500 MG TABLET PO SCH ×2 (09:35→17:00)
[2017-09-29] MEDS: DIVALPROEX 125 MG CAP.SPRINK PO SCH ×2 (09:35→20:50)
[2017-09-29] MEDS: TAMSULOSIN 0.4 MG CAP.ER.24H. PO SCH (09:35)
[2017-09-29] MEDS: ASPIRIN 81 MG TAB.CHEW PO SCH (09:35)
[2017-09-29] MEDS: busPIRone 10 MG TABLET. PO SCH ×2 (09:35→20:50)
[2017-09-29] MEDS: glipiZIDE 5 MG TABLET PO SCH (09:36)
[2017-09-29] MEDS: MULTIVITAMIN with MINERAL TABLET. PO SCH (09:37)
[2017-09-29] MEDS: CHOLECALCIFEROL (VITAMIN D3) 1,000 UNIT TABLET PO SCH (09:37)
[2017-09-29] MEDS: POLYETHYLENE GLYCOL 3350 17 GM PACKET. PO SCH (09:37)
[2017-09-29] MEDS: OLANZapine 5 MG TABLET PO SCH (09:37)
[2017-09-29] MEDS: METOPROLOL TART IMMED RELEASE 25 MG TABLET PO SCH ×2 (09:37→21:49)
[2017-09-29] MEDS: MEMANTINE 5 MG TABLET. PO SCH ×2 (09:37→20:51)
[2017-09-29 17:49] VITALS: BP 149/72
[2017-09-29] MEDS: traZODone 50 MG TABLET. PO SCH (20:50)
[2017-09-29] MEDS: DONEPEZIL HCL 10 MG TABLET PO SCH (20:50)
[2017-09-29] MEDS: PRAZOSIN 1 MG CAPSULE. PO SCH (20:51)
[2017-09-29] MEDS: ATORVASTATIN CALCIUM 20 MG TABLET PO SCH (20:51)
--- NOTE | 2017-09-29 22:00 | PN ---
DATE: 09/27/2017 This late entry date of service 09/27/2017 covers elements not covered in my initial note 09/27/2017. The patient was staffed at a lengthy treatment team meeting in the morning and seen individually in the evening. The patient's , Clarisse attended the treatment team meeting, reviewed his history at length, Clarisse is concerns that he may not be able to return to [facility]. He fell the previous night, no injury noted. 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 He has been aggressive with his daughter at times, quite volatile, probably part of the PTSD, even prior to his dementia. He has been 48 years. He has been showing his medications. We will change the Depakote ER to the SprGonnaBe. He is also extremely obsessive premorbidly. REVIEW OF SYSTEMS: Ambulation impaired in wheelchair. No CV, , pulmonary, eye, ENT system symptoms on review. Reliability poor. MENTAL STATUS EXAM: Oriented to himself. Insight, judgment, recent and remote memory, attention, concentration, fund of knowledge poor consistent with his diagnosis. IMPRESSION: Major neurocognitive disorder, Alzheimer, vascular with delusion, depression, behavioral disturbance, anxiety disorder unspecified, impulse control disorder unspecified, posttraumatic stress disorder, major depressive disorder, history of schizoaffective disorder. PLAN: In addition to above, we will reduce the Zyprexa from 7.5 mg daily down to 5 mg a day. Start prazosin for PTSD 1 mg at bedtime. Reduce the BuSpar from 20 mg 3 times a day down to 20 mg twice a day and in 3 days down to 10 mg twice a day. We will make further changes as indicated. ARLYN APPIAH MD DR: NAVDEEP/phuc JOB#: [id number] / [id number]
--- NOTE | 2017-09-29 22:43 | PDOC ---
Exam Note: Anderson Note: Please also refer to the separate dictated note~for this date of service dictated separately.~Patient seen individually. Discussed the patient with Nursing staff reviewed the chart.~Reviewed interim history and current functioning. Reviewed vital signs,~Labs/ Radiology~and current medications noted below. Continue current treatment with the changes noted in the dictated addendum note Assessment: Vital Signs: Vital Signs Date Time Temp Pulse Resp B/P (MAP) Pulse Ox O2 Delivery O2 Flow Rate FiO2 09/29/17 21:49 84 149/72 09/29/17 17:49 97.8 20 96 09/25/17 20:10 Room Air I&O Intake and Output 09/29/17 07:00 Intake Total 600 ml Balance 600 ml Intake Oral 600 ml # Bowel Movements 1 Labs: Laboratory Tests Test 09/29/17 07:19 Glucose (Fingerstick) 297 mg/dL (70-99) H Current Medications: Meds: Current Medications Acetaminophen (Tylenol) 650 mg PRN Q6HRS PRN PO PAIN / TEMP; Start 09/25/17 at 21:15 Multi-Ingredient Ointment (Analgesic [place]) 1 nica PRN QID PRN TP MUSCLE PAIN; Start 09/25/17 at 21:15 Al Hydroxide/Mg Hydroxide (Mylanta Plus Xs) 15 ml PRN AFTMEALHC PRN PO DYSPEPSIA; Start 09/25/17 at 21:15 Magnesium Hydroxide (Milk Of Magnesia) 2,400 mg PRN QHS PRN PO CONSTIPATION; Start 09/25/17 at 21:15; Stop 09/25/17 at 21:25; Status DC Buspirone HCl (Buspar) 20 mg TID PO Last administered on 09/27/17at 08:11; Start 09/25/17 at 21:30; Stop 09/27/17 at 13:30; Status DC Divalproex Sodium (Depakote Er) 750 mg BID PO Last administered on 09/27/17at 08 :10; Start 09/25/17 at 21:30; Stop 09/27/17 at 13:30; Status DC Donepezil HCl (Aricept) 10 mg HS PO Last administered on 09/29/17at 20:50; Start 09/25/17 at 21:30 Memantine (Namenda) 5 mg BID PO Last administered on 09/29/17 20:51; Start at 21:30 Olanzapine (ZyPREXA) 7.5 mg DAILY PO Last administered on 09/27/17 08:10; Start 09/26/17 at 09:00; Stop 09/27/17 at 13:30; Status DC Trazodone HCl (Desyrel) 50 mg QHS PO Last administered on 09/29/17 20:50; Start 09/25/17 at 21:30 Venlafaxine HCl (Effexor) 50 mg TID PO Last administered on 09/27/17 13:42; Start 09/25/17 at 21:30; Stop 09/27/17 at 18:11; Status DC Acetaminophen (Tylenol) 650 mg PRN Q6HRS PRN PO PAIN / TEMP; Start 09/25/17 at 21:15; Stop 09/25/17 at 21:18; Status DC Aspirin (Children'S Aspirin) 81 mg DAILY PO Last administered on 09/29/17 09: 35; Start 09/26/17 at 09:00 Vitamin D (Vitamin D3) 2,000 unit DAILY PO Last administered on 09/29/17 09:37 ; Start 09/26/17 at 09:00 Glipizide (Glucotrol) 15 mg DAILY PO Last administered on 09/29/17 09:36; Start 09/26/17 at 09:00 Metoprolol Tartrate (Lopressor) 25 mg BID PO Last administered on 09/29/17 21: 49; Start 09/25/17 at 21:30 Polyethylene Glycol (miraLAX) 17 gm DAILY PO Last administered on 09/29/17 09: 37; Start 09/26/17 at 09:00 Tamsulosin HCl (Flomax) 0.4 mg DAILY PO Last administered on 09/29/17 09:35; Start 09/26/17 at 09:00 Atorvastatin Calcium (Lipitor) 40 mg QHS PO Last administered on 09/29/17 20: 51; Start 09/25/17 at 21:30 Non-Formulary Medication (Glipizide ) 10 mg DAILY PO ; Start 09/26/17 at 09:00; Stop 09/26/17 at 09:00; Status DC Magnesium Hydroxide (Milk Of Magnesia) 4,800 mg PRN Q8HRS PRN PO CONSTIPATION; Start 09/25/17 at 21:30 Metformin HCl (Glucophage) 1,000 mg BIDWMEALS PO Last administered on at 09:35; Start 09/26/17 at 08:00 Multivitamins/ Calcium (Thera-M Plus) 1 tab DAILY PO Last administered on at 09:37; Start 09/26/17 at 09:00 Non-Formulary Medication (Sodium Fluoride/ Pot Nitrate (Prevident 5000 Enamel Protect)) 1 nica TIDPC DT ; Start 09/26/17 at 08:30; Stop 09/26/17 at 08:30; Status DC Buspirone HCl (Buspar) 20 mg BID PO ; Start 09/27/17 at 21:00; Stop 09/27/17 at 21:00; Status DC Olanzapine (ZyPREXA) 5 mg DAILY PO Last administered on 09/29/17at 09:37; Start 09/28/17 at 09:00 Divalproex Sodium (Depakote Sprinkles) 750 mg BID PO Last administered on at 20:50; Start 09/27/17 at 21:00 Buspirone HCl (Buspar) 10 mg BID PO ; Start 09/27/17 at 21:00; Stop 09/30/17 at 09:00; Status UNV Prazosin HCl (Minipress) 1 mg HS PO Last administered on 09/29/17at 20:51; Start 09/27/17 at 21:00 Buspirone HCl (Buspar) 10 mg BID PO ; Start 09/30/17 at 09:00 Buspirone HCl (Buspar) 20 mg BID PO Last administered on 09/29/17at 20:50; Start 09/27/17 at 21:00; Stop 09/29/17 at 21:01; Status DC Venlafaxine HCl (Effexor) 75 mg BID92 PO Last administered on 09/29/17at 13:31; Start 09/28/17 at 09:00; Stop 09/29/17 at 15:55; Status DC Venlafaxine HCl (Effexor) 75 mg DAILY PO ; Start 09/30/17 at 09:00 Active Scripts Active Reported Zyprexa (Olanzapine) 15 Mg Tablet 15 Mg PO Zyprexa (Olanzapine) 7.5 Mg Tablet 7.5 Mg PO DAILY Venlafaxine Hcl Er (Venlafaxine Hcl) 150 Mg Cap.er.24h 150 Mg PO DAILY Trazodone Hcl 50 Mg Tablet 50 Mg PO QHS Prevident 5000 Enamel Protect (Sodium Fluoride/Pot Nitrate) 100 Ml Paste..ml. 1 Nica DT TIDPC Miralax (Polyethylene Glycol 3350) 17 Gm Powd.pack 17 Gm PO DAILY Namenda (Memantine Hcl) 10 Mg Tablet 5 Mg PO BID Multivitamins (Multivitamin) 1 Each Tablet 1 Each PO DAILY Milk Of Magnesia (Magnesium Hydroxide) 2,400 Mg/10 Ml Oral.susp 4,800 Mg PO PRN Q8HRS PRN Metoprolol Tartrate 25 Mg Tablet 25 Mg PO BID Metformin Hcl 1,000 Mg Tablet 1,000 Mg PO BID Glipizide 5 Mg Tablet 5 Mg PO DAILY Glipizide 10 Mg Tablet 10 Mg PO DAILY Tamsulosin Hcl 0.4 Mg Cap.er.24h 0.4 Mg PO DAILY Depakote Er (Divalproex Sodium) 250 Mg Tab.er.24h 750 Mg PO BID Vitamin D3 (Cholecalciferol (Vitamin D3)) 1,000 Unit Tablet 2,000 Unit PO DAILY Buspirone Hcl 10 Mg Tablet 20 Mg PO TID Atorvastatin Calcium 40 Mg Tablet 40 Mg PO QHS Aspirin 81 Mg Tab.chew 81 Mg PO DAILY Aricept (Donepezil Hcl) 10 Mg Tablet 10 Mg PO HS Tylenol (Acetaminophen) 325 Mg Tablet 650 Mg PO PRN Q6HRS PRN I have reviewed the current psychotropics carefully including drug interactions. Risk benefit ratio favors no change other than as noted in my dictated progress note. Diagnosis: Problems: (1) Aggressive behavior (2) Medical clearance for psychiatric admission (3) Mood swings (4) Anxiety disorder (5) Dementia in Alzheimer's disease with delusions (6) Dementia in Alzheimer's disease with depression (7) Dementia, vascular, with delusions (8) Dementia, vascular, with depression (9) Impulse control disorder ARLYN APPIAH MD Sep 29, 2017 22:43
[2017-09-30 06:32] VITALS: BP 133/71
[2017-09-30 08:24] LABS: BASO # 0.1 x10^3/uL (0.0-0.2); BASO % 1 % (0-3); EOS # 0.3 x10^3/uL (0.0-0.7); EOS % 4 % (0-3); HEMATOCRIT 39.4 % (39.0-53.0); HEMOGLOBIN 13.2 g/dL (13.0-17.5); LYMPH # 2.1 x10^3/uL (1.0-4.8); LYMPH % 30 % (24-48); MEAN CORPUSCULAR HEMOGLOBIN 29 pg (25-35); MEAN CORPUSCULAR HGB CONC 34 g/dL (31-37); MEAN CORPUSCULAR VOLUME 85 fL (79-100); MONO # 0.6 x10^3/uL (0.0-1.1); MONO % 9 % (0-9); NEUT # 3.9 x10^3uL (1.8-7.7); NEUT % 56 % (31-73); PLATELET COUNT 169 x10^3/uL (140-400); RED BLOOD COUNT 4.63 x10^6/uL (4.30-5.70); RED CELL DISTRIBUTION WIDTH 16.8 % (11.5-14.5)
[2017-09-30 08:49] LABS: ALBUMIN 2.9 g/dL (3.4-5.0); ALBUMIN/GLOBULIN RATIO 0.7 (1.0-1.7); ALK PHOS 81 U/L (46-116); ALT (SGPT) 19 U/L (16-63); ANION GAP 5 (6-14); AST (SGOT) 18 U/L (15-37); BLOOD UREA NITROGEN 14 mg/dL (8-26); BUN/CREATININE RATIO 18 (6-20); CARBON DIOXIDE 31 mmol/L (21-32); CHLORIDE 105 mmol/L (98-107); CREATININE 0.8 mg/dL (0.7-1.3); GFR 95.3; GLUCOSE 135 mg/dL (70-99); POTASSIUM 4.4 mmol/L (3.5-5.1); SODIUM 141 mmol/L (136-145); TOTAL BILIRUBIN 0.5 mg/dL (0.2-1.0); TOTAL PROTEIN 7.2 g/dL (6.4-8.2)
[2017-09-30 08:50] LABS: VAL ACID 48 mcg/mL (50-100)
[2017-09-30] MEDS: metFORMIN 500 MG TABLET PO SCH ×2 (08:55→17:06)
[2017-09-30] MEDS: ASPIRIN 81 MG TAB.CHEW PO SCH (08:56)
[2017-09-30] MEDS: busPIRone 10 MG TABLET. PO SCH ×2 (08:56→21:04)
[2017-09-30] MEDS: MEMANTINE 5 MG TABLET. PO SCH ×2 (08:57→21:04)
[2017-09-30] MEDS: TAMSULOSIN 0.4 MG CAP.ER.24H. PO SCH (08:57)
[2017-09-30] MEDS: METOPROLOL TART IMMED RELEASE 25 MG TABLET PO SCH ×2 (08:57→21:04)
[2017-09-30] MEDS: DIVALPROEX 125 MG CAP.SPRINK PO SCH ×2 (08:57→21:03)
[2017-09-30] MEDS: POLYETHYLENE GLYCOL 3350 17 GM PACKET. PO SCH (08:57)
[2017-09-30] MEDS: glipiZIDE 5 MG TABLET PO SCH (08:57)
[2017-09-30] MEDS: MULTIVITAMIN with MINERAL TABLET. PO SCH (08:58)
[2017-09-30] MEDS: OLANZapine 5 MG TABLET PO SCH (08:58)
[2017-09-30] MEDS: CHOLECALCIFEROL (VITAMIN D3) 1,000 UNIT TABLET PO SCH (08:58)
[2017-09-30] MEDS: VENLAFAXINE 75 MG TABLET. PO SCH (08:59)
[2017-09-30 16:21] VITALS: BP 158/71
[2017-09-30] MEDS: ATORVASTATIN CALCIUM 20 MG TABLET PO SCH (21:02)
[2017-09-30] MEDS: PRAZOSIN 1 MG CAPSULE. PO SCH (21:03)
[2017-09-30] MEDS: DONEPEZIL HCL 10 MG TABLET PO SCH (21:04)
[2017-09-30] MEDS: traZODone 50 MG TABLET. PO SCH (21:04)
--- NOTE | 2017-09-30 22:28 | PDOC ---
Exam Note: Anderson Note: Please also refer to the separate dictated note~for this date of service dictated separately.~Patient seen individually. Discussed the patient with Nursing staff reviewed the chart.~Reviewed interim history and current functioning. Reviewed vital signs,~Labs/ Radiology~and current medications noted below. Continue current treatment with the changes noted in the dictated addendum note Assessment: Vital Signs: Vital Signs Date Time Temp Pulse Resp B/P (MAP) Pulse Ox O2 Delivery O2 Flow Rate FiO2 09/30/17 21:04 77 158/71 09/30/17 16:21 97.7 18 95 09/25/17 20:10 Room Air I&O Intake and Output 09/30/17 07:00 Intake Total 480 ml Balance 480 ml Intake Oral 480 ml # Bowel Movements 2 Labs: Laboratory Tests Test 09/30/17 07:22 09/30/17 07:48 Glucose (Fingerstick) 110 mg/dL (70-99) H White Blood Count 7.0 x10^3/uL (4.0-11.0) Red Blood Count 4.63 x10^6/uL (4.30-5.70) Hemoglobin 13.2 g/dL (13.0-17.5) Hematocrit 39.4 % (39.0-53.0) Mean Corpuscular Volume 85 fL (79-100) Mean Corpuscular Hemoglobin 29 pg (25-35) Mean Corpuscular Hemoglobin Concent 34 g/dL (31-37) Red Cell Distribution Width 16.8 % (11.5-14.5) H Platelet Count 169 x10^3/uL (140-400) Neutrophils (%) (Auto) 56 % (31-73) Lymphocytes (%) (Auto) 30 % (24-48) Monocytes (%) (Auto) 9 % (0-9) Eosinophils (%) (Auto) 4 % (0-3) H Basophils (%) (Auto) 1 % (0-3) Neutrophils # (Auto) 3.9 x10^3uL (1.8-7.7) Lymphocytes # (Auto) 2.1 x10^3/uL (1.0-4.8) Monocytes # (Auto) 0.6 x10^3/uL (0.0-1.1) Eosinophils # (Auto) 0.3 x10^3/uL (0.0-0.7) Basophils # (Auto) 0.1 x10^3/uL (0.0-0.2) Sodium Level 141 mmol/L (136-145) Potassium Level 4.4 mmol/L (3.5-5.1) Chloride Level 105 mmol/L (98-107) Carbon Dioxide Level 31 mmol/L (21-32) Anion Gap 5 (6-14) L Blood Urea Nitrogen 14 mg/dL (8-26) Creatinine 0.8 mg/dL (0.7-1.3) Estimated GFR (Cockcroft-Gault) 95.3 BUN/Creatinine Ratio 18 (6-20) Glucose Level 135 mg/dL (70-99) H Calcium Level 9.0 mg/dL (8.5-10.1) Total Bilirubin 0.5 mg/dL (0.2-1.0) Aspartate Amino Transferase (AST) 18 U/L (15-37) Alanine Aminotransferase (ALT) 19 U/L (16-63) Alkaline Phosphatase 81 U/L (46-116) Total Protein 7.2 g/dL (6.4-8.2) Albumin 2.9 g/dL (3.4-5.0) L Albumin/Globulin Ratio 0.7 (1.0-1.7) L Valproic Acid Level 48 mcg/mL (50-100) L Valproic Acid Last Dose Date 09/29/17 Valproic Acid Last Dose Time 2100 Current Medications: Meds: Current Medications Acetaminophen (Tylenol) 650 mg PRN Q6HRS PRN PO PAIN / TEMP; Start 09/25/17 at 21:15 Multi-Ingredient Ointment (Analgesic [place]) 1 nica PRN QID PRN TP MUSCLE PAIN; Start 09/25/17 at 21:15 Al Hydroxide/Mg Hydroxide (Mylanta Plus Xs) 15 ml PRN AFTMEALHC PRN PO DYSPEPSIA; Start 09/25/17 at 21:15 Magnesium Hydroxide (Milk Of Magnesia) 2,400 mg PRN QHS PRN PO CONSTIPATION; Start 09/25/17 at 21:15; Stop 09/25/17 at 21:25; Status DC Buspirone HCl (Buspar) 20 mg TID PO Last administered on 09/27/17at 08:11; Start 09/25/17 at 21:30; Stop 09/27/17 at 13:30; Status DC Divalproex Sodium (Depakote Er) 750 mg BID PO Last administered on 09/27/17at 08 :10; Start 09/25/17 at 21:30; Stop 09/27/17 at 13:30; Status DC Donepezil HCl (Aricept) 10 mg HS PO Last administered on 09/30/17 21:04; Start 09/25/17 at 21:30 Memantine (Namenda) 5 mg BID PO Last administered on 09/30/17 21:04; Start at 21:30 Olanzapine (ZyPREXA) 7.5 mg DAILY PO Last administered on 09/27/17 08:10; Start 09/26/17 at 09:00; Stop 09/27/17 at 13:30; Status DC Trazodone HCl (Desyrel) 50 mg QHS PO Last administered on 09/30/17 21:04; Start 09/25/17 at 21:30 Venlafaxine HCl (Effexor) 50 mg TID PO Last administered on 09/27/17at 13:42; Start 09/25/17 at 21:30; Stop 09/27/17 at 18:11; Status DC Acetaminophen (Tylenol) 650 mg PRN Q6HRS PRN PO PAIN / TEMP; Start 09/25/17 at 21:15; Stop 09/25/17 at 21:18; Status DC Aspirin (Children'S Aspirin) 81 mg DAILY PO Last administered on 09/30/17 08: 56; Start 09/26/17 at 09:00 Vitamin D (Vitamin D3) 2,000 unit DAILY PO Last administered on 09/30/17 08:58 ; Start 09/26/17 at 09:00 Glipizide (Glucotrol) 15 mg DAILY PO Last administered on 09/30/17 08:57; Start 09/26/17 at 09:00 Metoprolol Tartrate (Lopressor) 25 mg BID PO Last administered on 09/30/17 21: 04; Start 09/25/17 at 21:30 Polyethylene Glycol (miraLAX) 17 gm DAILY PO Last administered on 09/30/17at 08: 57; Start 09/26/17 at 09:00 Tamsulosin HCl (Flomax) 0.4 mg DAILY PO Last administered on 09/30/17at 08:57; Start 09/26/17 at 09:00 Atorvastatin Calcium (Lipitor) 40 mg QHS PO Last administered on 09/30/17at 21: 02; Start 09/25/17 at 21:30 Non-Formulary Medication (Glipizide ) 10 mg DAILY PO ; Start 09/26/17 at 09:00; Stop 09/26/17 at 09:00; Status DC Magnesium Hydroxide (Milk Of Magnesia) 4,800 mg PRN Q8HRS PRN PO CONSTIPATION; Start 09/25/17 at 21:30 Metformin HCl (Glucophage) 1,000 mg BIDWMEALS PO Last administered on at 17:06; Start 09/26/17 at 08:00 Multivitamins/ Calcium (Thera-M Plus) 1 tab DAILY PO Last administered on at 08:58; Start 09/26/17 at 09:00 Non-Formulary Medication (Sodium Fluoride/ Pot Nitrate (Prevident 5000 Enamel Protect)) 1 nica TIDPC DT ; Start 09/26/17 at 08:30; Stop 09/26/17 at 08:30; Status DC Buspirone HCl (Buspar) 20 mg BID PO ; Start 09/27/17 at 21:00; Stop 09/27/17 at 21:00; Status DC Olanzapine (ZyPREXA) 5 mg DAILY PO Last administered on 09/30/17at 08:58; Start 09/28/17 at 09:00 Divalproex Sodium (Depakote Sprinkles) 750 mg BID PO Last administered on at 21:03; Start 09/27/17 at 21:00 Buspirone HCl (Buspar) 10 mg BID PO ; Start 09/27/17 at 21:00; Stop 09/30/17 at 09:00; Status UNV Prazosin HCl (Minipress) 1 mg HS PO Last administered on 09/30/17at 21:03; Start 09/27/17 at 21:00 Buspirone HCl (Buspar) 10 mg BID PO Last administered on 09/30/17at 21:04; Start 09/30/17 at 09:00 Buspirone HCl (Buspar) 20 mg BID PO Last administered on 09/29/17at 20:50; Start 09/27/17 at 21:00; Stop 09/29/17 at 21:01; Status DC Venlafaxine HCl (Effexor) 75 mg BID92 PO Last administered on 09/29/17at 13:31; Start 09/28/17 at 09:00; Stop 09/29/17 at 15:55; Status DC Venlafaxine HCl (Effexor) 75 mg DAILY PO Last administered on 09/30/17at 08:59; Start 09/30/17 at 09:00 Olanzapine (ZyPREXA ZYDIS) 1.25 mg PRN Q2HR PRN PO PSYCHOSIS Last administered on 09/30/17at 17:46; Start 09/30/17 at 17:30 Active Scripts Active Reported Zyprexa (Olanzapine) 15 Mg Tablet 15 Mg PO Zyprexa (Olanzapine) 7.5 Mg Tablet 7.5 Mg PO DAILY Venlafaxine Hcl Er (Venlafaxine Hcl) 150 Mg Cap.er.24h 150 Mg PO DAILY Trazodone Hcl 50 Mg Tablet 50 Mg PO QHS Prevident 5000 Enamel Protect (Sodium Fluoride/Pot Nitrate) 100 Ml Paste..ml. 1 Nica DT TIDPC Miralax (Polyethylene Glycol 3350) 17 Gm Powd.pack 17 Gm PO DAILY Namenda (Memantine Hcl) 10 Mg Tablet 5 Mg PO BID Multivitamins (Multivitamin) 1 Each Tablet 1 Each PO DAILY Milk Of Magnesia (Magnesium Hydroxide) 2,400 Mg/10 Ml Oral.susp 4,800 Mg PO PRN Q8HRS PRN Metoprolol Tartrate 25 Mg Tablet 25 Mg PO BID Metformin Hcl 1,000 Mg Tablet 1,000 Mg PO BID Glipizide 5 Mg Tablet 5 Mg PO DAILY Glipizide 10 Mg Tablet 10 Mg PO DAILY Tamsulosin Hcl 0.4 Mg Cap.er.24h 0.4 Mg PO DAILY Depakote Er (Divalproex Sodium) 250 Mg Tab.er.24h 750 Mg PO BID Vitamin D3 (Cholecalciferol (Vitamin D3)) 1,000 Unit Tablet 2,000 Unit PO DAILY Buspirone Hcl 10 Mg Tablet 20 Mg PO TID Atorvastatin Calcium 40 Mg Tablet 40 Mg PO QHS Aspirin 81 Mg Tab.chew 81 Mg PO DAILY Aricept (Donepezil Hcl) 10 Mg Tablet 10 Mg PO HS Tylenol (Acetaminophen) 325 Mg Tablet 650 Mg PO PRN Q6HRS PRN I have reviewed the current psychotropics carefully including drug interactions. Risk benefit ratio favors no change other than as noted in my dictated progress note. Diagnosis: Problems: (1) Aggressive behavior (2) Medical clearance for psychiatric admission (3) Mood swings (4) Anxiety disorder (5) Dementia in Alzheimer's disease with delusions (6) Dementia in Alzheimer's disease with depression (7) Dementia, vascular, with delusions (8) Dementia, vascular, with depression (9) Impulse control disorder ARLYN APPIAH MD Sep 30, 2017 22:28
--- NOTE | 2017-10-01 01:21 | PN ---
DATE: 09/28/2017 PSYCHIATRIC PROGRESS NOTE This is a late entry 09/28/2017 covers elements not covered in my initial note 09/28/2017. SUBJECTIVE: I met with the patient in the evening. He has not been dropping himself to the floor, remains confused in his wheelchair, pleasant, compliant with medications, chews his medications, we will change it accordingly to compensate for this. REVIEW OF SYSTEMS: Ambulation impaired, in wheelchair. No CV, , pulmonary, eye system symptoms on review. MENTAL STATUS EXAM: Oriented to himself. Insight, judgment, recent and remote memory, attention, concentration, fund of knowledge poor, consistent with his diagnosis mentioned in my initial note. PLAN: Continue psychotropics unchanged from initial note. MAN Eladio APPIAH MD DR: NAVDEEP/phuc JOB#: [id number] / [id number]
[2017-10-01 06:21] VITALS: BP 126/79
[2017-10-01] MEDS: busPIRone 10 MG TABLET. PO SCH ×2 (09:01→20:26)
[2017-10-01] MEDS: metFORMIN 500 MG TABLET PO SCH ×2 (09:01→17:11)
[2017-10-01] MEDS: ASPIRIN 81 MG TAB.CHEW PO SCH (09:01)
[2017-10-01] MEDS: DIVALPROEX 125 MG CAP.SPRINK PO SCH ×2 (09:02→20:27)
[2017-10-01] MEDS: TAMSULOSIN 0.4 MG CAP.ER.24H. PO SCH (09:02)
[2017-10-01] MEDS: VENLAFAXINE 75 MG TABLET. PO SCH (09:02)
[2017-10-01] MEDS: glipiZIDE 5 MG TABLET PO SCH (09:03)
[2017-10-01] MEDS: MEMANTINE 5 MG TABLET. PO SCH ×2 (09:04→20:26)
[2017-10-01] MEDS: POLYETHYLENE GLYCOL 3350 17 GM PACKET. PO SCH (09:04)
[2017-10-01] MEDS: METOPROLOL TART IMMED RELEASE 25 MG TABLET PO SCH ×2 (09:04→20:27)
[2017-10-01] MEDS: MULTIVITAMIN with MINERAL TABLET. PO SCH (09:04)
[2017-10-01] MEDS: OLANZapine 5 MG TABLET PO SCH (09:05)
[2017-10-01] MEDS: CHOLECALCIFEROL (VITAMIN D3) 1,000 UNIT TABLET PO SCH (09:05)
[2017-10-01 16:22] VITALS: BP 154/88
[2017-10-01] MEDS: ATORVASTATIN CALCIUM 20 MG TABLET PO SCH (20:26)
[2017-10-01] MEDS: PRAZOSIN 1 MG CAPSULE. PO SCH (20:26)
[2017-10-01] MEDS: traZODone 50 MG TABLET. PO SCH (20:27)
[2017-10-01] MEDS: DONEPEZIL HCL 10 MG TABLET PO SCH (20:27)
--- NOTE | 2017-10-01 21:41 | PDOC ---
Exam Note: Anderson Note: Please also refer to the separate dictated note~for this date of service dictated separately.~Patient seen individually. Discussed the patient with Nursing staff reviewed the chart.~Reviewed interim history and current functioning. Reviewed vital signs,~Labs/ Radiology~and current medications noted below. Continue current treatment with the changes noted in the dictated addendum note Assessment: Vital Signs: Vital Signs Date Time Temp Pulse Resp B/P (MAP) Pulse Ox O2 Delivery O2 Flow Rate FiO2 10/01/17 20:27 87 154/88 10/01/17 16:22 97.7 18 96 09/25/17 20:10 Room Air I&O Intake and Output 10/01/17 07:00 Intake Total 540 ml Output Total 2 ml Balance 538 ml Intake Oral 540 ml Output Urine Total 2 ml # Voids 1 # Bowel Movements 2 Labs: Laboratory Tests Test 10/01/17 07:25 Glucose (Fingerstick) 135 mg/dL (70-99) H Current Medications: Meds: Current Medications Acetaminophen (Tylenol) 650 mg PRN Q6HRS PRN PO PAIN / TEMP; Start 09/25/17 at 21:15 Multi-Ingredient Ointment (Analgesic [place]) 1 nica PRN QID PRN TP MUSCLE PAIN; Start 09/25/17 at 21:15 Al Hydroxide/Mg Hydroxide (Mylanta Plus Xs) 15 ml PRN AFTMEALHC PRN PO DYSPEPSIA; Start 09/25/17 at 21:15 Magnesium Hydroxide (Milk Of Magnesia) 2,400 mg PRN QHS PRN PO CONSTIPATION; Start 09/25/17 at 21:15; Stop 09/25/17 at 21:25; Status DC Buspirone HCl (Buspar) 20 mg TID PO Last administered on 09/27/17at 08:11; Start 09/25/17 at 21:30; Stop 09/27/17 at 13:30; Status DC Divalproex Sodium (Depakote Er) 750 mg BID PO Last administered on 09/27/17at 08 :10; Start 09/25/17 at 21:30; Stop 09/27/17 at 13:30; Status DC Donepezil HCl (Aricept) 10 mg HS PO Last administered on 10/01/17at 20:27; Start 09/25/17 at 21:30 Memantine (Namenda) 5 mg BID PO Last administered on 10/01/17 20:26; Start at 21:30 Olanzapine (ZyPREXA) 7.5 mg DAILY PO Last administered on 09/27/17 08:10; Start 09/26/17 at 09:00; Stop 09/27/17 at 13:30; Status DC Trazodone HCl (Desyrel) 50 mg QHS PO Last administered on 10/01/17 20:27; Start 09/25/17 at 21:30 Venlafaxine HCl (Effexor) 50 mg TID PO Last administered on 09/27/17 13:42; Start 09/25/17 at 21:30; Stop 09/27/17 at 18:11; Status DC Acetaminophen (Tylenol) 650 mg PRN Q6HRS PRN PO PAIN / TEMP; Start 09/25/17 at 21:15; Stop 09/25/17 at 21:18; Status DC Aspirin (Children'S Aspirin) 81 mg DAILY PO Last administered on 10/01/17 09: 01; Start 09/26/17 at 09:00 Vitamin D (Vitamin D3) 2,000 unit DAILY PO Last administered on 10/01/17 09:05 ; Start 09/26/17 at 09:00 Glipizide (Glucotrol) 15 mg DAILY PO Last administered on 10/01/17 09:03; Start 09/26/17 at 09:00 Metoprolol Tartrate (Lopressor) 25 mg BID PO Last administered on 10/01/17 20: 27; Start 09/25/17 at 21:30 Polyethylene Glycol (miraLAX) 17 gm DAILY PO Last administered on 10/01/17 09: 04; Start 09/26/17 at 09:00 Tamsulosin HCl (Flomax) 0.4 mg DAILY PO Last administered on 10/01/17 09:02; Start 09/26/17 at 09:00 Atorvastatin Calcium (Lipitor) 40 mg QHS PO Last administered on 10/01/17 20: 26; Start 09/25/17 at 21:30 Non-Formulary Medication (Glipizide ) 10 mg DAILY PO ; Start 09/26/17 at 09:00; Stop 09/26/17 at 09:00; Status DC Magnesium Hydroxide (Milk Of Magnesia) 4,800 mg PRN Q8HRS PRN PO CONSTIPATION; Start 09/25/17 at 21:30 Metformin HCl (Glucophage) 1,000 mg BIDWMEALS PO Last administered on at 17:11; Start 09/26/17 at 08:00 Multivitamins/ Calcium (Thera-M Plus) 1 tab DAILY PO Last administered on at 09:04; Start 09/26/17 at 09:00 Non-Formulary Medication (Sodium Fluoride/ Pot Nitrate (Prevident 5000 Enamel Protect)) 1 nica TIDPC DT ; Start 09/26/17 at 08:30; Stop 09/26/17 at 08:30; Status DC Buspirone HCl (Buspar) 20 mg BID PO ; Start 09/27/17 at 21:00; Stop 09/27/17 at 21:00; Status DC Olanzapine (ZyPREXA) 5 mg DAILY PO Last administered on 10/01/17at 09:05; Start 09/28/17 at 09:00 Divalproex Sodium (Depakote Sprinkles) 750 mg BID PO Last administered on at 20:27; Start 09/27/17 at 21:00 Buspirone HCl (Buspar) 10 mg BID PO ; Start 09/27/17 at 21:00; Stop 09/30/17 at 09:00; Status UNV Prazosin HCl (Minipress) 1 mg HS PO Last administered on 10/01/17at 20:26; Start 09/27/17 at 21:00 Buspirone HCl (Buspar) 10 mg BID PO Last administered on 10/01/17at 20:26; Start 09/30/17 at 09:00 Buspirone HCl (Buspar) 20 mg BID PO Last administered on 09/29/17at 20:50; Start 09/27/17 at 21:00; Stop 09/29/17 at 21:01; Status DC Venlafaxine HCl (Effexor) 75 mg BID92 PO Last administered on 09/29/17at 13:31; Start 09/28/17 at 09:00; Stop 09/29/17 at 15:55; Status DC Venlafaxine HCl (Effexor) 75 mg DAILY PO Last administered on 10/01/17at 09:02; Start 09/30/17 at 09:00 Olanzapine (ZyPREXA ZYDIS) 1.25 mg PRN Q2HR PRN PO PSYCHOSIS Last administered on 09/30/17at 17:46; Start 09/30/17 at 17:30 Active Scripts Active Reported Zyprexa (Olanzapine) 15 Mg Tablet 15 Mg PO Zyprexa (Olanzapine) 7.5 Mg Tablet 7.5 Mg PO DAILY Venlafaxine Hcl Er (Venlafaxine Hcl) 150 Mg Cap.er.24h 150 Mg PO DAILY Trazodone Hcl 50 Mg Tablet 50 Mg PO QHS Prevident 5000 Enamel Protect (Sodium Fluoride/Pot Nitrate) 100 Ml Paste..ml. 1 Nica DT TIDPC Miralax (Polyethylene Glycol 3350) 17 Gm Powd.pack 17 Gm PO DAILY Namenda (Memantine Hcl) 10 Mg Tablet 5 Mg PO BID Multivitamins (Multivitamin) 1 Each Tablet 1 Each PO DAILY Milk Of Magnesia (Magnesium Hydroxide) 2,400 Mg/10 Ml Oral.susp 4,800 Mg PO PRN Q8HRS PRN Metoprolol Tartrate 25 Mg Tablet 25 Mg PO BID Metformin Hcl 1,000 Mg Tablet 1,000 Mg PO BID Glipizide 5 Mg Tablet 5 Mg PO DAILY Glipizide 10 Mg Tablet 10 Mg PO DAILY Tamsulosin Hcl 0.4 Mg Cap.er.24h 0.4 Mg PO DAILY Depakote Er (Divalproex Sodium) 250 Mg Tab.er.24h 750 Mg PO BID Vitamin D3 (Cholecalciferol (Vitamin D3)) 1,000 Unit Tablet 2,000 Unit PO DAILY Buspirone Hcl 10 Mg Tablet 20 Mg PO TID Atorvastatin Calcium 40 Mg Tablet 40 Mg PO QHS Aspirin 81 Mg Tab.chew 81 Mg PO DAILY Aricept (Donepezil Hcl) 10 Mg Tablet 10 Mg PO HS Tylenol (Acetaminophen) 325 Mg Tablet 650 Mg PO PRN Q6HRS PRN I have reviewed the current psychotropics carefully including drug interactions. Risk benefit ratio favors no change other than as noted in my dictated progress note. Diagnosis: Problems: (1) Aggressive behavior (2) Medical clearance for psychiatric admission (3) Mood swings (4) Anxiety disorder (5) Dementia in Alzheimer's disease with delusions (6) Dementia in Alzheimer's disease with depression (7) Dementia, vascular, with delusions (8) Dementia, vascular, with depression (9) Impulse control disorder ARLYN APPIAH MD Oct 01, 2017 21:40
--- NOTE | 2017-10-02 03:34 | PN ---
DATE: 09/29/2017 This is a late entry of 09/29/2017 covers elements not covered in my initial note of 09/29/2017. SUBJECTIVE: I met with the patient in the evening. The patient slept 7-1/2 hours. He fell in the evening. No injury noted. REVIEW OF SYSTEMS: Ambulation impaired, in wheelchair. No CV, , pulmonary, eye, ENT system symptoms on review. Reliability poor. MENTAL STATUS EXAM: Oriented to himself. Insight, judgment, recent and remote memory, attention, concentration, fund of knowledge poor, consistent with his diagnosis mentioned in my initial note. IMPRESSION: Major neurocognitive disorder, Alzheimer, vascular with delusion, depression, behavioral disturbance; history of schizoaffective disorder, bipolar type. Rest unchanged. PLAN: Reduce Effexor from 75 mg twice a day down to once a day. Continue rest unchanged. MAN Eladio APPIAH MD DR: NAVDEEP/phuc JOB#: [id number] / [id number]
--- NOTE | 2017-10-02 05:17 | PN ---
DATE: 09/30/2017 PSYCHIATRIC PROGRESS NOTE This late entry 09/30/2017 covers elements not covered in my initial note 09/30/2017. SUBJECTIVE: I met with the patient in the evening. The patient slept 7-1/2 hours previous evening and he has been quite anxious, restless, yelling, putting himself on the floor and this fairly constant. No injuries noted. REVIEW OF SYSTEMS: Ambulation impaired, in wheelchair. No CV, , pulmonary, eye, ENT system symptoms on review. Reliability poor. MENTAL STATUS EXAM: Oriented to himself. Insight, judgment, recent and remote memory, attention, concentration, fund of knowledge poor, consistent with his diagnosis mentioned in my initial note. IMPRESSION: Major neurocognitive disorder, Alzheimer, vascular with delusion, depression, behavioral disturbance. Rest unchanged including PTSD. PLAN: Continue psychotropics mentioned in my initial note, may need to increase prazosin. MAN Eladio APPIAH MD DR: NAVDEEP/phuc JOB#: [id number] / [id number]
[2017-10-02 06:39] VITALS: BP 174/94
[2017-10-02] MEDS: POLYETHYLENE GLYCOL 3350 17 GM PACKET. PO SCH (08:18)
[2017-10-02] MEDS: CHOLECALCIFEROL (VITAMIN D3) 1,000 UNIT TABLET PO SCH (08:18)
[2017-10-02] MEDS: metFORMIN 500 MG TABLET PO SCH ×2 (08:18→17:32)
[2017-10-02] MEDS: ASPIRIN 81 MG TAB.CHEW PO SCH (08:18)
[2017-10-02] MEDS: VENLAFAXINE 75 MG TABLET. PO SCH (08:18)
[2017-10-02] MEDS: busPIRone 10 MG TABLET. PO SCH ×2 (08:18→20:57)
[2017-10-02] MEDS: DIVALPROEX 125 MG CAP.SPRINK PO SCH ×2 (08:19→20:56)
[2017-10-02] MEDS: TAMSULOSIN 0.4 MG CAP.ER.24H. PO SCH (08:19)
[2017-10-02] MEDS: METOPROLOL TART IMMED RELEASE 25 MG TABLET PO SCH ×2 (08:19→20:57)
[2017-10-02] MEDS: glipiZIDE 5 MG TABLET PO SCH (08:19)
[2017-10-02] MEDS: MULTIVITAMIN with MINERAL TABLET. PO SCH (08:19)
[2017-10-02] MEDS: OLANZapine 5 MG TABLET PO SCH (08:19)
[2017-10-02] MEDS: MEMANTINE 5 MG TABLET. PO SCH ×2 (08:19→20:57)
[2017-10-02 16:03] VITALS: BP 149/60
[2017-10-02] MEDS: PRAZOSIN 1 MG CAPSULE. PO SCH (20:56)
[2017-10-02] MEDS: traZODone 50 MG TABLET. PO SCH (20:56)
[2017-10-02] MEDS: DONEPEZIL HCL 10 MG TABLET PO SCH (20:56)
[2017-10-02] MEDS: ATORVASTATIN CALCIUM 20 MG TABLET PO SCH (20:56)
--- NOTE | 2017-10-02 21:41 | PDOC ---
Exam Note: Anderson Note: Please also refer to the separate dictated note~for this date of service dictated separately.~Patient seen individually. Discussed the patient with Nursing staff reviewed the chart.~Reviewed interim history and current functioning. Reviewed vital signs,~Labs/ Radiology~and current medications noted below. Continue current treatment with the changes noted in the dictated addendum note Assessment: Vital Signs: Vital Signs Date Time Temp Pulse Resp B/P (MAP) Pulse Ox O2 Delivery O2 Flow Rate FiO2 10/02/17 20:57 79 149/60 10/02/17 16:03 97.3 18 95 I&O Intake and Output 10/02/17 07:00 Intake Total 1320 ml Balance 1320 ml Intake Oral 1320 ml # Voids 1 Labs: Laboratory Tests Test 10/02/17 07:34 10/02/17 19:39 Glucose (Fingerstick) 134 mg/dL (70-99) H 238 mg/dL (70-99) H Current Medications: Meds: Current Medications Acetaminophen (Tylenol) 650 mg PRN Q6HRS PRN PO PAIN / TEMP; Start 09/25/17 at 21:15 Multi-Ingredient Ointment (Analgesic [place]) 1 nica PRN QID PRN TP MUSCLE PAIN; Start 09/25/17 at 21:15 Al Hydroxide/Mg Hydroxide (Mylanta Plus Xs) 15 ml PRN AFTMEALHC PRN PO DYSPEPSIA; Start 09/25/17 at 21:15 Magnesium Hydroxide (Milk Of Magnesia) 2,400 mg PRN QHS PRN PO CONSTIPATION; Start 09/25/17 at 21:15; Stop 09/25/17 at 21:25; Status DC Buspirone HCl (Buspar) 20 mg TID PO Last administered on 09/27/17at 08:11; Start 09/25/17 at 21:30; Stop 09/27/17 at 13:30; Status DC Divalproex Sodium (Depakote Er) 750 mg BID PO Last administered on 09/27/17at 08 :10; Start 09/25/17 at 21:30; Stop 09/27/17 at 13:30; Status DC Donepezil HCl (Aricept) 10 mg HS PO Last administered on 10/02/17at 20:56; Start 09/25/17 at 21:30 Memantine (Namenda) 5 mg BID PO Last administered on 10/02/17 20:57; Start at 21:30 Olanzapine (ZyPREXA) 7.5 mg DAILY PO Last administered on 09/27/17at 08:10; Start 09/26/17 at 09:00; Stop 09/27/17 at 13:30; Status DC Trazodone HCl (Desyrel) 50 mg QHS PO Last administered on 10/02/17 20:56; Start 09/25/17 at 21:30 Venlafaxine HCl (Effexor) 50 mg TID PO Last administered on 09/27/17at 13:42; Start 09/25/17 at 21:30; Stop 09/27/17 at 18:11; Status DC Acetaminophen (Tylenol) 650 mg PRN Q6HRS PRN PO PAIN / TEMP; Start 09/25/17 at 21:15; Stop 09/25/17 at 21:18; Status DC Aspirin (Children'S Aspirin) 81 mg DAILY PO Last administered on 10/02/17 08:18 ; Start 09/26/17 at 09:00 Vitamin D (Vitamin D3) 2,000 unit DAILY PO Last administered on 10/02/17 08:18 ; Start 09/26/17 at 09:00 Glipizide (Glucotrol) 15 mg DAILY PO Last administered on 10/02/17 08:19; Start 09/26/17 at 09:00 Metoprolol Tartrate (Lopressor) 25 mg BID PO Last administered on 10/02/17 20: 57; Start 09/25/17 at 21:30 Polyethylene Glycol (miraLAX) 17 gm DAILY PO Last administered on 10/02/17 08: 18; Start 09/26/17 at 09:00 Tamsulosin HCl (Flomax) 0.4 mg DAILY PO Last administered on 10/02/17 08:19; Start 09/26/17 at 09:00 Atorvastatin Calcium (Lipitor) 40 mg QHS PO Last administered on 10/02/17 20:56 ; Start 09/25/17 at 21:30 Non-Formulary Medication (Glipizide ) 10 mg DAILY PO ; Start 09/26/17 at 09:00; Stop 09/26/17 at 09:00; Status DC Magnesium Hydroxide (Milk Of Magnesia) 4,800 mg PRN Q8HRS PRN PO CONSTIPATION; Start 09/25/17 at 21:30 Metformin HCl (Glucophage) 1,000 mg BIDWMEALS PO Last administered on 10/02/17at 17:32; Start 09/26/17 at 08:00 Multivitamins/ Calcium (Thera-M Plus) 1 tab DAILY PO Last administered on at 08:19; Start 09/26/17 at 09:00 Non-Formulary Medication (Sodium Fluoride/ Pot Nitrate (Prevident 5000 Enamel Protect)) 1 nica TIDPC DT ; Start 09/26/17 at 08:30; Stop 09/26/17 at 08:30; Status DC Buspirone HCl (Buspar) 20 mg BID PO ; Start 09/27/17 at 21:00; Stop 09/27/17 at 21:00; Status DC Olanzapine (ZyPREXA) 5 mg DAILY PO Last administered on 10/02/17at 08:19; Start 09/28/17 at 09:00 Divalproex Sodium (Depakote Sprinkles) 750 mg BID PO Last administered on at 20:56; Start 09/27/17 at 21:00 Buspirone HCl (Buspar) 10 mg BID PO ; Start 09/27/17 at 21:00; Stop 09/30/17 at 09:00; Status UNV Prazosin HCl (Minipress) 1 mg HS PO Last administered on 10/02/17at 20:56; Start 09/27/17 at 21:00 Buspirone HCl (Buspar) 10 mg BID PO Last administered on 10/02/17at 20:57; Start 09/30/17 at 09:00 Buspirone HCl (Buspar) 20 mg BID PO Last administered on 09/29/17at 20:50; Start 09/27/17 at 21:00; Stop 09/29/17 at 21:01; Status DC Venlafaxine HCl (Effexor) 75 mg BID92 PO Last administered on 09/29/17at 13:31; Start 09/28/17 at 09:00; Stop 09/29/17 at 15:55; Status DC Venlafaxine HCl (Effexor) 75 mg DAILY PO Last administered on 10/02/17at 08:18; Start 09/30/17 at 09:00 Olanzapine (ZyPREXA ZYDIS) 1.25 mg PRN Q2HR PRN PO PSYCHOSIS Last administered on 09/30/17at 17:46; Start 09/30/17 at 17:30 Active Scripts Active Reported Zyprexa (Olanzapine) 15 Mg Tablet 15 Mg PO Zyprexa (Olanzapine) 7.5 Mg Tablet 7.5 Mg PO DAILY Venlafaxine Hcl Er (Venlafaxine Hcl) 150 Mg Cap.er.24h 150 Mg PO DAILY Trazodone Hcl 50 Mg Tablet 50 Mg PO QHS Prevident 5000 Enamel Protect (Sodium Fluoride/Pot Nitrate) 100 Ml Paste..ml. 1 Nica DT TIDPC Miralax (Polyethylene Glycol 3350) 17 Gm Powd.pack 17 Gm PO DAILY Namenda (Memantine Hcl) 10 Mg Tablet 5 Mg PO BID Multivitamins (Multivitamin) 1 Each Tablet 1 Each PO DAILY Milk Of Magnesia (Magnesium Hydroxide) 2,400 Mg/10 Ml Oral.susp 4,800 Mg PO PRN Q8HRS PRN Metoprolol Tartrate 25 Mg Tablet 25 Mg PO BID Metformin Hcl 1,000 Mg Tablet 1,000 Mg PO BID Glipizide 5 Mg Tablet 5 Mg PO DAILY Glipizide 10 Mg Tablet 10 Mg PO DAILY Tamsulosin Hcl 0.4 Mg Cap.er.24h 0.4 Mg PO DAILY Depakote Er (Divalproex Sodium) 250 Mg Tab.er.24h 750 Mg PO BID Vitamin D3 (Cholecalciferol (Vitamin D3)) 1,000 Unit Tablet 2,000 Unit PO DAILY Buspirone Hcl 10 Mg Tablet 20 Mg PO TID Atorvastatin Calcium 40 Mg Tablet 40 Mg PO QHS Aspirin 81 Mg Tab.chew 81 Mg PO DAILY Aricept (Donepezil Hcl) 10 Mg Tablet 10 Mg PO HS Tylenol (Acetaminophen) 325 Mg Tablet 650 Mg PO PRN Q6HRS PRN I have reviewed the current psychotropics carefully including drug interactions. Risk benefit ratio favors no change other than as noted in my dictated progress note. Diagnosis: Problems: (1) Aggressive behavior (2) Medical clearance for psychiatric admission (3) Mood swings (4) Anxiety disorder (5) Dementia in Alzheimer's disease with delusions (6) Dementia in Alzheimer's disease with depression (7) Dementia, vascular, with delusions (8) Dementia, vascular, with depression (9) Impulse control disorder ARLYN APPIAH MD October 02, 2017 21:41
--- NOTE | 2017-10-03 03:24 | PN ---
DATE: 10/01/2017 This is a late entry for 10/01/2017 covers elements not covered in my initial note of 10/01/2017. SUBJECTIVE: I met with the patient in the evening. The patient remains confused. He yells out when he is wet. REVIEW OF SYSTEMS: Ambulation impaired, in wheelchair. No CV, , pulmonary, eye system symptoms on review. Reliability poor. MENTAL STATUS EXAM: Oriented to himself. Insight, judgment, recent and remote memory, attention, concentration, fund of knowledge poor, consistent with his diagnosis mentioned in my initial note. PLAN: Continue current psychotropics. Valproic acid level therapeutic at 56. Adjust as indicated. ARLYN APPIAH MD DR: NAVDEEP/phuc JOB#: [id number] / [id number]
[2017-10-03 06:26] VITALS: BP 147/72
[2017-10-03] MEDS: POLYETHYLENE GLYCOL 3350 17 GM PACKET. PO SCH (07:49)
[2017-10-03] MEDS: ASPIRIN 81 MG TAB.CHEW PO SCH (07:50)
[2017-10-03] MEDS: metFORMIN 500 MG TABLET PO SCH ×2 (07:50→17:35)
[2017-10-03] MEDS: CHOLECALCIFEROL (VITAMIN D3) 1,000 UNIT TABLET PO SCH (07:50)
[2017-10-03] MEDS: glipiZIDE 5 MG TABLET PO SCH (07:50)
[2017-10-03] MEDS: MEMANTINE 5 MG TABLET. PO SCH ×2 (07:50→21:37)
[2017-10-03] MEDS: MULTIVITAMIN with MINERAL TABLET. PO SCH (07:51)
[2017-10-03] MEDS: METOPROLOL TART IMMED RELEASE 25 MG TABLET PO SCH ×2 (07:51→21:37)
[2017-10-03] MEDS: VENLAFAXINE 75 MG TABLET. PO SCH (07:51)
[2017-10-03] MEDS: TAMSULOSIN 0.4 MG CAP.ER.24H. PO SCH (07:51)
[2017-10-03] MEDS: busPIRone 10 MG TABLET. PO SCH ×2 (07:51→21:37)
[2017-10-03] MEDS: OLANZapine 5 MG TABLET PO SCH (07:52)
[2017-10-03] MEDS: DIVALPROEX 125 MG CAP.SPRINK PO SCH ×2 (07:52→21:36)
[2017-10-03 17:00] VITALS: BP 162/83
--- NOTE | 2017-10-03 21:05 | PDOC ---
Exam Note: Anderson Note: Please also refer to the separate dictated note~for this date of service dictated separately.~Patient seen individually. Discussed the patient with Nursing staff reviewed the chart.~Reviewed interim history and current functioning. Reviewed vital signs,~Labs/ Radiology~and current medications noted below. Continue current treatment with the changes noted in the dictated addendum note Assessment: Vital Signs: Vital Signs Date Time Temp Pulse Resp B/P (MAP) Pulse Ox O2 Delivery O2 Flow Rate FiO2 10/03/17 17:00 97.3 70 18 162/83 (109) 96 I&O Intake and Output 10/03/17 07:00 Intake Total 1440 ml Balance 1440 ml Intake Oral 1440 ml Labs: Laboratory Tests Test 10/03/17 07:50 Glucose (Fingerstick) 125 mg/dL (70-99) H Current Medications: Meds: Current Medications Acetaminophen (Tylenol) 650 mg PRN Q6HRS PRN PO PAIN / TEMP; Start 09/25/17 at 21:15 Multi-Ingredient Ointment (Analgesic [place]) 1 nica PRN QID PRN TP MUSCLE PAIN; Start 09/25/17 at 21:15 Al Hydroxide/Mg Hydroxide (Mylanta Plus Xs) 15 ml PRN AFTMEALHC PRN PO DYSPEPSIA; Start 09/25/17 at 21:15 Magnesium Hydroxide (Milk Of Magnesia) 2,400 mg PRN QHS PRN PO CONSTIPATION; Start 09/25/17 at 21:15; Stop 09/25/17 at 21:25; Status DC Buspirone HCl (Buspar) 20 mg TID PO Last administered on 09/27/17at 08:11; Start 09/25/17 at 21:30; Stop 09/27/17 at 13:30; Status DC Divalproex Sodium (Depakote Er) 750 mg BID PO Last administered on 09/27/17at 08 :10; Start 09/25/17 at 21:30; Stop 09/27/17 at 13:30; Status DC Donepezil HCl (Aricept) 10 mg HS PO Last administered on 10/02/17at 20:56; Start 09/25/17 at 21:30 Memantine (Namenda) 5 mg BID PO Last administered on 10/03/17at 07:50; Start at 21:30 Olanzapine (ZyPREXA) 7.5 mg DAILY PO Last administered on 09/27/17at 08:10; Start 09/26/17 at 09:00; Stop 09/27/17 at 13:30; Status DC Trazodone HCl (Desyrel) 50 mg QHS PO Last administered on 10/02/17 20:56; Start 09/25/17 at 21:30 Venlafaxine HCl (Effexor) 50 mg TID PO Last administered on 09/27/17at 13:42; Start 09/25/17 at 21:30; Stop 09/27/17 at 18:11; Status DC Acetaminophen (Tylenol) 650 mg PRN Q6HRS PRN PO PAIN / TEMP; Start 09/25/17 at 21:15; Stop 09/25/17 at 21:18; Status DC Aspirin (Children'S Aspirin) 81 mg DAILY PO Last administered on 10/03/17 07:50 ; Start 09/26/17 at 09:00 Vitamin D (Vitamin D3) 2,000 unit DAILY PO Last administered on 10/03/17 07:50 ; Start 09/26/17 at 09:00 Glipizide (Glucotrol) 15 mg DAILY PO Last administered on 10/03/17 07:50; Start 09/26/17 at 09:00 Metoprolol Tartrate (Lopressor) 25 mg BID PO Last administered on 10/03/17 07: 51; Start 09/25/17 at 21:30 Polyethylene Glycol (miraLAX) 17 gm DAILY PO Last administered on 10/03/17at 07: 49; Start 09/26/17 at 09:00 Tamsulosin HCl (Flomax) 0.4 mg DAILY PO Last administered on 10/03/17 07:51; Start 09/26/17 at 09:00 Atorvastatin Calcium (Lipitor) 40 mg QHS PO Last administered on 10/02/17 20:56 ; Start 09/25/17 at 21:30 Non-Formulary Medication (Glipizide ) 10 mg DAILY PO ; Start 09/26/17 at 09:00; Stop 09/26/17 at 09:00; Status DC Magnesium Hydroxide (Milk Of Magnesia) 4,800 mg PRN Q8HRS PRN PO CONSTIPATION; Start 09/25/17 at 21:30 Metformin HCl (Glucophage) 1,000 mg BIDWMEALS PO Last administered on 10/03/17 17:35; Start 09/26/17 at 08:00 Multivitamins/ Calcium (Thera-M Plus) 1 tab DAILY PO Last administered on 07:51; Start 09/26/17 at 09:00 Non-Formulary Medication (Sodium Fluoride/ Pot Nitrate (Prevident 5000 Enamel Protect)) 1 nica TIDPC DT ; Start 09/26/17 at 08:30; Stop 09/26/17 at 08:30; Status DC Buspirone HCl (Buspar) 20 mg BID PO ; Start 09/27/17 at 21:00; Stop 09/27/17 at 21:00; Status DC Olanzapine (ZyPREXA) 5 mg DAILY PO Last administered on 10/03/17 07:52; Start 09/28/17 at 09:00 Divalproex Sodium (Depakote Sprinkles) 750 mg BID PO Last administered on 07:52; Start 09/27/17 at 21:00 Buspirone HCl (Buspar) 10 mg BID PO ; Start 09/27/17 at 21:00; Stop 09/30/17 at 09:00; Status UNV Prazosin HCl (Minipress) 1 mg HS PO Last administered on 10/02/17at 20:56; Start 09/27/17 at 21:00; Stop 10/03/17 at 18:43; Status DC Buspirone HCl (Buspar) 10 mg BID PO Last administered on 10/03/17 07:51; Start 09/30/17 at 09:00 Buspirone HCl (Buspar) 20 mg BID PO Last administered on 09/29/17at 20:50; Start 09/27/17 at 21:00; Stop 09/29/17 at 21:01; Status DC Venlafaxine HCl (Effexor) 75 mg BID92 PO Last administered on 09/29/17at 13:31; Start 09/28/17 at 09:00; Stop 09/29/17 at 15:55; Status DC Venlafaxine HCl (Effexor) 75 mg DAILY PO Last administered on 10/03/17 07:51; Start 09/30/17 at 09:00 Olanzapine (ZyPREXA ZYDIS) 1.25 mg PRN Q2HR PRN PO PSYCHOSIS Last administered on 09/30/17at 17:46; Start 09/30/17 at 17:30 Prazosin HCl (Minipress) 2 mg HS PO ; Start 10/03/17 at 21:00 Active Scripts Active Reported Zyprexa (Olanzapine) 15 Mg Tablet 15 Mg PO Zyprexa (Olanzapine) 7.5 Mg Tablet 7.5 Mg PO DAILY Venlafaxine Hcl Er (Venlafaxine Hcl) 150 Mg Cap.er.24h 150 Mg PO DAILY Trazodone Hcl 50 Mg Tablet 50 Mg PO QHS Prevident 5000 Enamel Protect (Sodium Fluoride/Pot Nitrate) 100 Ml Paste..ml. 1 Nica DT TIDPC Miralax (Polyethylene Glycol 3350) 17 Gm Powd.pack 17 Gm PO DAILY Namenda (Memantine Hcl) 10 Mg Tablet 5 Mg PO BID Multivitamins (Multivitamin) 1 Each Tablet 1 Each PO DAILY Milk Of Magnesia (Magnesium Hydroxide) 2,400 Mg/10 Ml Oral.susp 4,800 Mg PO PRN Q8HRS PRN Metoprolol Tartrate 25 Mg Tablet 25 Mg PO BID Metformin Hcl 1,000 Mg Tablet 1,000 Mg PO BID Glipizide 5 Mg Tablet 5 Mg PO DAILY Glipizide 10 Mg Tablet 10 Mg PO DAILY Tamsulosin Hcl 0.4 Mg Cap.er.24h 0.4 Mg PO DAILY Depakote Er (Divalproex Sodium) 250 Mg Tab.er.24h 750 Mg PO BID Vitamin D3 (Cholecalciferol (Vitamin D3)) 1,000 Unit Tablet 2,000 Unit PO DAILY Buspirone Hcl 10 Mg Tablet 20 Mg PO TID Atorvastatin Calcium 40 Mg Tablet 40 Mg PO QHS Aspirin 81 Mg Tab.chew 81 Mg PO DAILY Aricept (Donepezil Hcl) 10 Mg Tablet 10 Mg PO HS Tylenol (Acetaminophen) 325 Mg Tablet 650 Mg PO PRN Q6HRS PRN I have reviewed the current psychotropics carefully including drug interactions. Risk benefit ratio favors no change other than as noted in my dictated progress note. Diagnosis: Problems: (1) Aggressive behavior (2) Medical clearance for psychiatric admission (3) Mood swings (4) Anxiety disorder (5) Dementia in Alzheimer's disease with delusions (6) Dementia in Alzheimer's disease with depression (7) Dementia, vascular, with delusions (8) Dementia, vascular, with depression (9) Impulse control disorder ARLYN APPIAH MD October 03, 2017 21:05
[2017-10-03] MEDS: traZODone 50 MG TABLET. PO SCH (21:37)
[2017-10-03] MEDS: DONEPEZIL HCL 10 MG TABLET PO SCH (21:37)
[2017-10-03] MEDS: ATORVASTATIN CALCIUM 20 MG TABLET PO SCH (21:37)
[2017-10-03] MEDS: PRAZOSIN 1 MG CAPSULE. PO SCH (21:39)
--- NOTE | 2017-10-03 23:37 | PN ---
DATE: 10/02/2017 PSYCHIATRIC PROGRESS NOTE This is a late entry for 10/02/2017, covers elements not covered in my initial note of 10/02/2017. SUBJECTIVE: I met with the patient in the evening. The patient slept 7 hours previous evening. Remains confused, otherwise pleasant, agitated when assisted by nursing staff. REVIEW OF SYSTEMS: Ambulation impaired, in wheelchair. He pushes himself to the edge of the wheelchair at risk of falls and had the nursing staff push him back. The patient oblivious of this. No CV, , pulmonary, eye system symptoms on review. Reliability poor. MENTAL STATUS EXAM: Oriented to himself. Insight, judgment, recent and remote memory, attention, concentration, fund of knowledge poor, consistent with his diagnosis mentioned in my initial note. PLAN: Continue current psychotropics mentioned in my initial note. MAN Eladio APPIAH MD DR: NAVDEEP/phuc JOB#: [id number] / [id number]
[2017-10-04 05:47] VITALS: BP 125/65
[2017-10-04] MEDS: POLYETHYLENE GLYCOL 3350 17 GM PACKET. PO SCH (08:07)
[2017-10-04] MEDS: MULTIVITAMIN with MINERAL TABLET. PO SCH (08:08)
[2017-10-04] MEDS: CHOLECALCIFEROL (VITAMIN D3) 1,000 UNIT TABLET PO SCH (08:08)
[2017-10-04] MEDS: ASPIRIN 81 MG TAB.CHEW PO SCH (08:08)
[2017-10-04] MEDS: TAMSULOSIN 0.4 MG CAP.ER.24H. PO SCH (08:08)
[2017-10-04] MEDS: glipiZIDE 5 MG TABLET PO SCH (08:08)
[2017-10-04] MEDS: VENLAFAXINE 75 MG TABLET. PO SCH (08:08)
[2017-10-04] MEDS: METOPROLOL TART IMMED RELEASE 25 MG TABLET PO SCH ×2 (08:09→20:32)
[2017-10-04] MEDS: DIVALPROEX 125 MG CAP.SPRINK PO SCH ×2 (08:09→20:32)
[2017-10-04] MEDS: MEMANTINE 5 MG TABLET. PO SCH ×2 (08:09→20:32)
[2017-10-04] MEDS: metFORMIN 500 MG TABLET PO SCH ×2 (08:09→17:53)
[2017-10-04] MEDS: busPIRone 10 MG TABLET. PO SCH ×2 (08:09→20:32)
[2017-10-04] MEDS: OLANZapine 5 MG TABLET PO SCH (08:09)
[2017-10-04 16:31] VITALS: BP 148/73
[2017-10-04] MEDS: traZODone 50 MG TABLET. PO SCH (20:32)
[2017-10-04] MEDS: DONEPEZIL HCL 10 MG TABLET PO SCH (20:32)
[2017-10-04] MEDS: ATORVASTATIN CALCIUM 20 MG TABLET PO SCH (20:32)
[2017-10-04] MEDS: PRAZOSIN 1 MG CAPSULE. PO SCH (20:33)
--- NOTE | 2017-10-04 21:08 | PDOC ---
Exam Note: Anderson Note: Please also refer to the separate dictated note~for this date of service dictated separately.~Patient seen individually. Discussed the patient with Nursing staff reviewed the chart.~Reviewed interim history and current functioning. Reviewed vital signs,~Labs/ Radiology~and current medications noted below. Continue current treatment with the changes noted in the dictated addendum note Assessment: Vital Signs: Vital Signs Date Time Temp Pulse Resp B/P (MAP) Pulse Ox O2 Delivery O2 Flow Rate FiO2 10/04/17 20:33 70 148/73 10/04/17 16:31 97.5 20 98 I&O Intake and Output 10/04/17 07:00 Intake Total 1020 ml Balance 1020 ml Intake Oral 1020 ml # Voids 1 # Bowel Movements 1 Labs: Laboratory Tests Test 10/04/17 07:12 Glucose (Fingerstick) 191 mg/dL (70-99) H Current Medications: Meds: Current Medications Acetaminophen (Tylenol) 650 mg PRN Q6HRS PRN PO PAIN / TEMP; Start 09/25/17 at 21:15 Multi-Ingredient Ointment (Analgesic [place]) 1 nica PRN QID PRN TP MUSCLE PAIN; Start 09/25/17 at 21:15 Al Hydroxide/Mg Hydroxide (Mylanta Plus Xs) 15 ml PRN AFTMEALHC PRN PO DYSPEPSIA; Start 09/25/17 at 21:15 Magnesium Hydroxide (Milk Of Magnesia) 2,400 mg PRN QHS PRN PO CONSTIPATION; Start 09/25/17 at 21:15; Stop 09/25/17 at 21:25; Status DC Buspirone HCl (Buspar) 20 mg TID PO Last administered on 09/27/17at 08:11; Start 09/25/17 at 21:30; Stop 09/27/17 at 13:30; Status DC Divalproex Sodium (Depakote Er) 750 mg BID PO Last administered on 09/27/17at 08 :10; Start 09/25/17 at 21:30; Stop 09/27/17 at 13:30; Status DC Donepezil HCl (Aricept) 10 mg HS PO Last administered on 10/04/17at 20:32; Start 09/25/17 at 21:30 Memantine (Namenda) 5 mg BID PO Last administered on 5/3/18at 20:32; Start at 21:30 Olanzapine (ZyPREXA) 7.5 mg DAILY PO Last administered on 09/27/17 08:10; Start 09/26/17 at 09:00; Stop 09/27/17 at 13:30; Status DC Trazodone HCl (Desyrel) 50 mg QHS PO Last administered on 10/04/17 20:32; Start 09/25/17 at 21:30 Venlafaxine HCl (Effexor) 50 mg TID PO Last administered on 09/27/17 13:42; Start 09/25/17 at 21:30; Stop 09/27/17 at 18:11; Status DC Acetaminophen (Tylenol) 650 mg PRN Q6HRS PRN PO PAIN / TEMP; Start 09/25/17 at 21:15; Stop 09/25/17 at 21:18; Status DC Aspirin (Children'S Aspirin) 81 mg DAILY PO Last administered on 10/04/17 08:08 ; Start 09/26/17 at 09:00 Vitamin D (Vitamin D3) 2,000 unit DAILY PO Last administered on 10/04/17 08:08 ; Start 09/26/17 at 09:00 Glipizide (Glucotrol) 15 mg DAILY PO Last administered on 10/04/17 08:08; Start 09/26/17 at 09:00 Metoprolol Tartrate (Lopressor) 25 mg BID PO Last administered on 10/04/17 20: 32; Start 09/25/17 at 21:30 Polyethylene Glycol (miraLAX) 17 gm DAILY PO Last administered on 10/04/17 08: 07; Start 09/26/17 at 09:00 Tamsulosin HCl (Flomax) 0.4 mg DAILY PO Last administered on 10/04/17 08:08; Start 09/26/17 at 09:00 Atorvastatin Calcium (Lipitor) 40 mg QHS PO Last administered on 10/04/17 20:32 ; Start 09/25/17 at 21:30 Non-Formulary Medication (Glipizide ) 10 mg DAILY PO ; Start 09/26/17 at 09:00; Stop 09/26/17 at 09:00; Status DC Magnesium Hydroxide (Milk Of Magnesia) 4,800 mg PRN Q8HRS PRN PO CONSTIPATION; Start 09/25/17 at 21:30 Metformin HCl (Glucophage) 1,000 mg BIDWMEALS PO Last administered on 10/04/17 17:53; Start 09/26/17 at 08:00 Multivitamins/ Calcium (Thera-M Plus) 1 tab DAILY PO Last administered on at 08:08; Start 09/26/17 at 09:00 Non-Formulary Medication (Sodium Fluoride/ Pot Nitrate (Prevident 5000 Enamel Protect)) 1 nica TIDPC DT ; Start 09/26/17 at 08:30; Stop 09/26/17 at 08:30; Status DC Buspirone HCl (Buspar) 20 mg BID PO ; Start 09/27/17 at 21:00; Stop 09/27/17 at 21:00; Status DC Olanzapine (ZyPREXA) 5 mg DAILY PO Last administered on 10/04/17at 08:09; Start 09/28/17 at 09:00 Divalproex Sodium (Depakote Sprinkles) 750 mg BID PO Last administered on at 20:32; Start 09/27/17 at 21:00 Buspirone HCl (Buspar) 10 mg BID PO ; Start 09/27/17 at 21:00; Stop 09/30/17 at 09:00; Status UNV Prazosin HCl (Minipress) 1 mg HS PO Last administered on 10/02/17at 20:56; Start 09/27/17 at 21:00; Stop 10/03/17 at 18:43; Status DC Buspirone HCl (Buspar) 10 mg BID PO Last administered on 10/04/17at 20:32; Start 09/30/17 at 09:00 Buspirone HCl (Buspar) 20 mg BID PO Last administered on 09/29/17at 20:50; Start 09/27/17 at 21:00; Stop 09/29/17 at 21:01; Status DC Venlafaxine HCl (Effexor) 75 mg BID92 PO Last administered on 09/29/17at 13:31; Start 09/28/17 at 09:00; Stop 09/29/17 at 15:55; Status DC Venlafaxine HCl (Effexor) 75 mg DAILY PO Last administered on 10/04/17 08:08; Start 09/30/17 at 09:00 Olanzapine (ZyPREXA ZYDIS) 1.25 mg PRN Q2HR PRN PO PSYCHOSIS Last administered on 09/30/17at 17:46; Start 09/30/17 at 17:30 Prazosin HCl (Minipress) 2 mg HS PO Last administered on 10/04/17at 20:33; Start 10/03/17 at 21:00 Active Scripts Active Reported Zyprexa (Olanzapine) 15 Mg Tablet 15 Mg PO Zyprexa (Olanzapine) 7.5 Mg Tablet 7.5 Mg PO DAILY Venlafaxine Hcl Er (Venlafaxine Hcl) 150 Mg Cap.er.24h 150 Mg PO DAILY Trazodone Hcl 50 Mg Tablet 50 Mg PO QHS Prevident 5000 Enamel Protect (Sodium Fluoride/Pot Nitrate) 100 Ml Paste..ml. 1 Nica DT TIDPC Miralax (Polyethylene Glycol 3350) 17 Gm Powd.pack 17 Gm PO DAILY Namenda (Memantine Hcl) 10 Mg Tablet 5 Mg PO BID Multivitamins (Multivitamin) 1 Each Tablet 1 Each PO DAILY Milk Of Magnesia (Magnesium Hydroxide) 2,400 Mg/10 Ml Oral.susp 4,800 Mg PO PRN Q8HRS PRN Metoprolol Tartrate 25 Mg Tablet 25 Mg PO BID Metformin Hcl 1,000 Mg Tablet 1,000 Mg PO BID Glipizide 5 Mg Tablet 5 Mg PO DAILY Glipizide 10 Mg Tablet 10 Mg PO DAILY Tamsulosin Hcl 0.4 Mg Cap.er.24h 0.4 Mg PO DAILY Depakote Er (Divalproex Sodium) 250 Mg Tab.er.24h 750 Mg PO BID Vitamin D3 (Cholecalciferol (Vitamin D3)) 1,000 Unit Tablet 2,000 Unit PO DAILY Buspirone Hcl 10 Mg Tablet 20 Mg PO TID Atorvastatin Calcium 40 Mg Tablet 40 Mg PO QHS Aspirin 81 Mg Tab.chew 81 Mg PO DAILY Aricept (Donepezil Hcl) 10 Mg Tablet 10 Mg PO HS Tylenol (Acetaminophen) 325 Mg Tablet 650 Mg PO PRN Q6HRS PRN I have reviewed the current psychotropics carefully including drug interactions. Risk benefit ratio favors no change other than as noted in my dictated progress note. Diagnosis: Problems: (1) Aggressive behavior (2) Medical clearance for psychiatric admission (3) Mood swings (4) Anxiety disorder (5) Dementia in Alzheimer's disease with delusions (6) Dementia in Alzheimer's disease with depression (7) Dementia, vascular, with delusions (8) Dementia, vascular, with depression (9) Impulse control disorder ARLYN APPIAH MD October 04, 2017 21:07
[2017-10-05 06:06] VITALS: BP 149/77
[2017-10-05] MEDS: OLANZapine 5 MG TABLET PO SCH (08:19)
[2017-10-05] MEDS: glipiZIDE 5 MG TABLET PO SCH (08:19)
[2017-10-05] MEDS: METOPROLOL TART IMMED RELEASE 25 MG TABLET PO SCH ×2 (08:19→19:51)
[2017-10-05] MEDS: ASPIRIN 81 MG TAB.CHEW PO SCH (08:19)
[2017-10-05] MEDS: busPIRone 10 MG TABLET. PO SCH ×2 (08:19→19:51)
[2017-10-05] MEDS: VENLAFAXINE 75 MG TABLET. PO SCH (08:19)
[2017-10-05] MEDS: metFORMIN 500 MG TABLET PO SCH ×2 (08:19→17:21)
[2017-10-05] MEDS: POLYETHYLENE GLYCOL 3350 17 GM PACKET. PO SCH (08:20)
[2017-10-05] MEDS: MEMANTINE 5 MG TABLET. PO SCH ×2 (08:20→19:50)
[2017-10-05] MEDS: CHOLECALCIFEROL (VITAMIN D3) 1,000 UNIT TABLET PO SCH (08:20)
[2017-10-05] MEDS: DIVALPROEX 125 MG CAP.SPRINK PO SCH ×2 (08:21→19:50)
[2017-10-05] MEDS: TAMSULOSIN 0.4 MG CAP.ER.24H. PO SCH (08:22)
[2017-10-05] MEDS: MULTIVITAMIN with MINERAL TABLET. PO SCH (08:22)
[2017-10-05 08:25] LABS: BASO # 0.1 x10^3/uL (0.0-0.2); BASO % 1 % (0-3); EOS # 0.2 x10^3/uL (0.0-0.7); EOS % 4 % (0-3); HEMATOCRIT 40.1 % (39.0-53.0); HEMOGLOBIN 13.5 g/dL (13.0-17.5); LYMPH # 2.2 x10^3/uL (1.0-4.8); LYMPH % 31 % (24-48); MEAN CORPUSCULAR HEMOGLOBIN 29 pg (25-35); MEAN CORPUSCULAR HGB CONC 34 g/dL (31-37); MEAN CORPUSCULAR VOLUME 85 fL (79-100); MONO # 0.7 x10^3/uL (0.0-1.1); MONO % 10 % (0-9); NEUT # 3.9 x10^3uL (1.8-7.7); NEUT % 55 % (31-73); PLATELET COUNT 176 x10^3/uL (140-400); RED BLOOD COUNT 4.71 x10^6/uL (4.30-5.70); RED CELL DISTRIBUTION WIDTH 16.9 % (11.5-14.5); WHITE BLOOD COUNT 7.2 x10^3/uL (4.0-11.0)
[2017-10-05 08:31] LABS: ALBUMIN/GLOBULIN RATIO 0.7 (1.0-1.7); CALCIUM 9.1 mg/dL (8.5-10.1); CREATININE 0.8 mg/dL (0.7-1.3); GFR 95.3; POTASSIUM 4.2 mmol/L (3.5-5.1); TOTAL BILIRUBIN 0.5 mg/dL (0.2-1.0); TOTAL PROTEIN 7.6 g/dL (6.4-8.2)
[2017-10-05 16:01] VITALS: BP 159/71
[2017-10-05] MEDS: PRAZOSIN 1 MG CAPSULE. PO SCH (19:50)
[2017-10-05] MEDS: ATORVASTATIN CALCIUM 20 MG TABLET PO SCH (19:50)
[2017-10-05] MEDS: traZODone 50 MG TABLET. PO SCH (19:52)
[2017-10-05] MEDS: DONEPEZIL HCL 10 MG TABLET PO SCH (19:52)
--- NOTE | 2017-10-05 21:12 | PDOC ---
Exam Note: Anderson Note: Please also refer to the separate dictated note~for this date of service dictated separately.~Patient seen individually. Discussed the patient with Nursing staff reviewed the chart.~Reviewed interim history and current functioning. Reviewed vital signs,~Labs/ Radiology~and current medications noted below. Continue current treatment with the changes noted in the dictated addendum note Assessment: Vital Signs: Vital Signs Date Time Temp Pulse Resp B/P (MAP) Pulse Ox O2 Delivery O2 Flow Rate FiO2 10/05/17 19:51 82 159/71 10/05/17 16:01 97.0 20 93 I&O Intake and Output 10/05/17 07:00 Intake Total 840 ml Balance 840 ml Intake Oral 840 ml Labs: Laboratory Tests Test 10/05/17 07:15 10/05/17 07:18 White Blood Count 7.2 x10^3/uL (4.0-11.0) Red Blood Count 4.71 x10^6/uL (4.30-5.70) Hemoglobin 13.5 g/dL (13.0-17.5) Hematocrit 40.1 % (39.0-53.0) Mean Corpuscular Volume 85 fL (79-100) Mean Corpuscular Hemoglobin 29 pg (25-35) Mean Corpuscular Hemoglobin Concent 34 g/dL (31-37) Red Cell Distribution Width 16.9 % (11.5-14.5) H Platelet Count 176 x10^3/uL (140-400) Neutrophils (%) (Auto) 55 % (31-73) Lymphocytes (%) (Auto) 31 % (24-48) Monocytes (%) (Auto) 10 % (0-9) H Eosinophils (%) (Auto) 4 % (0-3) H Basophils (%) (Auto) 1 % (0-3) Neutrophils # (Auto) 3.9 x10^3uL (1.8-7.7) Lymphocytes # (Auto) 2.2 x10^3/uL (1.0-4.8) Monocytes # (Auto) 0.7 x10^3/uL (0.0-1.1) Eosinophils # (Auto) 0.2 x10^3/uL (0.0-0.7) Basophils # (Auto) 0.1 x10^3/uL (0.0-0.2) Sodium Level 142 mmol/L (136-145) Potassium Level 4.2 mmol/L (3.5-5.1) Chloride Level 104 mmol/L (98-107) Carbon Dioxide Level 31 mmol/L (21-32) Anion Gap 7 (6-14) Blood Urea Nitrogen 11 mg/dL (8-26) Creatinine 0.8 mg/dL (0.7-1.3) Estimated GFR (Cockcroft-Gault) 95.3 BUN/Creatinine Ratio 14 (6-20) Glucose Level 109 mg/dL (70-99) H Calcium Level 9.1 mg/dL (8.5-10.1) Magnesium Level 2.0 mg/dL (1.8-2.4) Total Bilirubin 0.5 mg/dL (0.2-1.0) Aspartate Amino Transferase (AST) 20 U/L (15-37) Alanine Aminotransferase (ALT) 21 U/L (16-63) Alkaline Phosphatase 86 U/L (46-116) Total Protein 7.6 g/dL (6.4-8.2) Albumin 3.0 g/dL (3.4-5.0) L Albumin/Globulin Ratio 0.7 (1.0-1.7) L Glucose (Fingerstick) 105 mg/dL (70-99) H Current Medications: Meds: Current Medications Acetaminophen (Tylenol) 650 mg PRN Q6HRS PRN PO PAIN / TEMP; Start 09/25/17 at 21:15 Multi-Ingredient Ointment (Analgesic [place]) 1 nica PRN QID PRN TP MUSCLE PAIN; Start 09/25/17 at 21:15 Al Hydroxide/Mg Hydroxide (Mylanta Plus Xs) 15 ml PRN AFTMEALHC PRN PO DYSPEPSIA; Start 09/25/17 at 21:15 Magnesium Hydroxide (Milk Of Magnesia) 2,400 mg PRN QHS PRN PO CONSTIPATION; Start 09/25/17 at 21:15; Stop 09/25/17 at 21:25; Status DC Buspirone HCl (Buspar) 20 mg TID PO Last administered on 09/27/17at 08:11; Start 09/25/17 at 21:30; Stop 09/27/17 at 13:30; Status DC Divalproex Sodium (Depakote Er) 750 mg BID PO Last administered on 09/27/17 08 :10; Start 09/25/17 at 21:30; Stop 09/27/17 at 13:30; Status DC Donepezil HCl (Aricept) 10 mg HS PO Last administered on 10/05/17 19:52; Start 09/25/17 at 21:30 Memantine (Namenda) 5 mg BID PO Last administered on 10/05/17 19:50; Start at 21:30 Olanzapine (ZyPREXA) 7.5 mg DAILY PO Last administered on 09/27/17 08:10; Start 09/26/17 at 09:00; Stop 09/27/17 at 13:30; Status DC Trazodone HCl (Desyrel) 50 mg QHS PO Last administered on 10/05/17 19:52; Start 09/25/17 at 21:30 Venlafaxine HCl (Effexor) 50 mg TID PO Last administered on 09/27/17 13:42; Start 09/25/17 at 21:30; Stop 09/27/17 at 18:11; Status DC Acetaminophen (Tylenol) 650 mg PRN Q6HRS PRN PO PAIN / TEMP; Start 09/25/17 at 21:15; Stop 09/25/17 at 21:18; Status DC Aspirin (Children'S Aspirin) 81 mg DAILY PO Last administered on 10/05/17 08:19 ; Start 09/26/17 at 09:00 Vitamin D (Vitamin D3) 2,000 unit DAILY PO Last administered on 10/05/17 08:20 ; Start 09/26/17 at 09:00 Glipizide (Glucotrol) 15 mg DAILY PO Last administered on 10/05/17 08:19; Start 09/26/17 at 09:00 Metoprolol Tartrate (Lopressor) 25 mg BID PO Last administered on 10/05/17 19: 51; Start 09/25/17 at 21:30 Polyethylene Glycol (miraLAX) 17 gm DAILY PO Last administered on 10/05/17 08: 20; Start 09/26/17 at 09:00 Tamsulosin HCl (Flomax) 0.4 mg DAILY PO Last administered on 5/4/18at 08:22; Start 09/26/17 at 09:00 Atorvastatin Calcium (Lipitor) 40 mg QHS PO Last administered on 10/05/17 19:50 ; Start 09/25/17 at 21:30 Non-Formulary Medication (Glipizide ) 10 mg DAILY PO ; Start 09/26/17 at 09:00; Stop 09/26/17 at 09:00; Status DC Magnesium Hydroxide (Milk Of Magnesia) 4,800 mg PRN Q8HRS PRN PO CONSTIPATION; Start 09/25/17 at 21:30 Metformin HCl (Glucophage) 1,000 mg BIDWMEALS PO Last administered on 10/05/17 17:21; Start 09/26/17 at 08:00 Multivitamins/ Calcium (Thera-M Plus) 1 tab DAILY PO Last administered on 08:22; Start 09/26/17 at 09:00 Non-Formulary Medication (Sodium Fluoride/ Pot Nitrate (Prevident 5000 Enamel Protect)) 1 nica TIDPC DT ; Start 09/26/17 at 08:30; Stop 09/26/17 at 08:30; Status DC Buspirone HCl (Buspar) 20 mg BID PO ; Start 09/27/17 at 21:00; Stop 09/27/17 at 21:00; Status DC Olanzapine (ZyPREXA) 5 mg DAILY PO Last administered on 10/05/17 08:19; Start 09/28/17 at 09:00 Divalproex Sodium (Depakote Sprinkles) 750 mg BID PO Last administered on 19:50; Start 09/27/17 at 21:00 Buspirone HCl (Buspar) 10 mg BID PO ; Start 09/27/17 at 21:00; Stop 09/30/17 at 09:00; Status UNV Prazosin HCl (Minipress) 1 mg HS PO Last administered on 10/02/17 20:56; Start 09/27/17 at 21:00; Stop 10/03/17 at 18:43; Status DC Buspirone HCl (Buspar) 10 mg BID PO Last administered on 10/05/17 19:51; Start 09/30/17 at 09:00 Buspirone HCl (Buspar) 20 mg BID PO Last administered on 4/28/18at 20:50; Start 09/27/17 at 21:00; Stop 09/29/17 at 21:01; Status DC Venlafaxine HCl (Effexor) 75 mg BID92 PO Last administered on 09/29/17at 13:31; Start 09/28/17 at 09:00; Stop 09/29/17 at 15:55; Status DC Venlafaxine HCl (Effexor) 75 mg DAILY PO Last administered on 10/05/17 08:19; Start 09/30/17 at 09:00 Olanzapine (ZyPREXA ZYDIS) 1.25 mg PRN Q2HR PRN PO PSYCHOSIS Last administered on 09/30/17at 17:46; Start 09/30/17 at 17:30 Prazosin HCl (Minipress) 2 mg HS PO Last administered on 10/05/17at 19:50; Start 10/03/17 at 21:00 Active Scripts Active Reported Zyprexa (Olanzapine) 15 Mg Tablet 15 Mg PO Zyprexa (Olanzapine) 7.5 Mg Tablet 7.5 Mg PO DAILY Venlafaxine Hcl Er (Venlafaxine Hcl) 150 Mg Cap.er.24h 150 Mg PO DAILY Trazodone Hcl 50 Mg Tablet 50 Mg PO QHS Prevident 5000 Enamel Protect (Sodium Fluoride/Pot Nitrate) 100 Ml Paste..ml. 1 Nica DT TIDPC Miralax (Polyethylene Glycol 3350) 17 Gm Powd.pack 17 Gm PO DAILY Namenda (Memantine Hcl) 10 Mg Tablet 5 Mg PO BID Multivitamins (Multivitamin) 1 Each Tablet 1 Each PO DAILY Milk Of Magnesia (Magnesium Hydroxide) 2,400 Mg/10 Ml Oral.susp 4,800 Mg PO PRN Q8HRS PRN Metoprolol Tartrate 25 Mg Tablet 25 Mg PO BID Metformin Hcl 1,000 Mg Tablet 1,000 Mg PO BID Glipizide 5 Mg Tablet 5 Mg PO DAILY Glipizide 10 Mg Tablet 10 Mg PO DAILY Tamsulosin Hcl 0.4 Mg Cap.er.24h 0.4 Mg PO DAILY Depakote Er (Divalproex Sodium) 250 Mg Tab.er.24h 750 Mg PO BID Vitamin D3 (Cholecalciferol (Vitamin D3)) 1,000 Unit Tablet 2,000 Unit PO DAILY Buspirone Hcl 10 Mg Tablet 20 Mg PO TID Atorvastatin Calcium 40 Mg Tablet 40 Mg PO QHS Aspirin 81 Mg Tab.chew 81 Mg PO DAILY Aricept (Donepezil Hcl) 10 Mg Tablet 10 Mg PO HS Tylenol (Acetaminophen) 325 Mg Tablet 650 Mg PO PRN Q6HRS PRN I have reviewed the current psychotropics carefully including drug interactions. Risk benefit ratio favors no change other than as noted in my dictated progress note. Diagnosis: Problems: (1) Aggressive behavior (2) Medical clearance for psychiatric admission (3) Mood swings (4) Anxiety disorder (5) Dementia in Alzheimer's disease with delusions (6) Dementia in Alzheimer's disease with depression (7) Dementia, vascular, with delusions (8) Dementia, vascular, with depression (9) Impulse control disorder ARLYN APPIAH MD October 05, 2017 21:12
--- NOTE | 2017-10-06 05:16 | PN ---
DATE: 10/03/2017 This late entry 10/03/2017 covers elements not covered in my initial note 10/03/2017. Met with the patient in the evening. The patient slept 8-1/2 hours previous evening. He remains quite disorganized. Ambulation impaired, in wheelchair, was talking at night about being in a [place] all night. He seems to have recurrent nightmares and recollections of past experiences from war consistent with his PTSD diagnosis. REVIEW OF SYSTEMS: No CV, , pulmonary, eye system symptoms on review. Reliability poor. MENTAL STATUS EXAM: Oriented to himself. Insight, judgment, recent and remote memory, attention, concentration, fund of knowledge poor, consistent with his diagnosis mentioned in my initial note. PLAN: Increase prazosin to 2 mg at bedtime for his PTSD. Continue rest psychotropics unchanged. MAN Eladio APPIAH MD DR: NAVDEEP/phuc JOB#: [id number] / [id number]
[2017-10-06 06:29] VITALS: BP 162/73
[2017-10-06] MEDS: metFORMIN 500 MG TABLET PO SCH ×2 (08:31→18:46)
[2017-10-06] MEDS: MEMANTINE 5 MG TABLET. PO SCH ×2 (08:31→19:33)
[2017-10-06] MEDS: MULTIVITAMIN with MINERAL TABLET. PO SCH (08:31)
[2017-10-06] MEDS: TAMSULOSIN 0.4 MG CAP.ER.24H. PO SCH (08:31)
[2017-10-06] MEDS: VENLAFAXINE 75 MG TABLET. PO SCH (08:31)
[2017-10-06] MEDS: OLANZapine 5 MG TABLET PO SCH (08:31)
[2017-10-06] MEDS: glipiZIDE 5 MG TABLET PO SCH (08:31)
[2017-10-06] MEDS: busPIRone 10 MG TABLET. PO SCH ×2 (08:32→19:33)
[2017-10-06] MEDS: ASPIRIN 81 MG TAB.CHEW PO SCH (08:32)
[2017-10-06] MEDS: METOPROLOL TART IMMED RELEASE 25 MG TABLET PO SCH ×2 (08:32→19:33)
[2017-10-06] MEDS: CHOLECALCIFEROL (VITAMIN D3) 1,000 UNIT TABLET PO SCH (08:32)
[2017-10-06] MEDS: POLYETHYLENE GLYCOL 3350 17 GM PACKET. PO SCH (08:32)
[2017-10-06] MEDS: DIVALPROEX 125 MG CAP.SPRINK PO SCH ×2 (08:32→19:32)
[2017-10-06 17:05] VITALS: BP 117/70
--- NOTE | 2017-10-06 18:05 | PN ---
DATE: 10/04/2017 This is a late entry for 10/04/2017 and covers the elements not covered in my initial note of 10/04/2017. SUBJECTIVE: I met with the patient in the evening and staffed at a treatment team meeting with the entire team in the morning. He has been confused, delusional, believes he is in a [place]. We will be checking labs in the morning of 10/05/2017. Appetite is better. Prazosin was increased to 2 mg at bedtime. REVIEW OF SYSTEMS: Ambulation impaired, in wheelchair. No CV, , pulmonary, eye, ENT system symptoms on review. Reliability poor. MENTAL STATUS EXAM: Oriented to himself. Insight, judgment, recent and remote memory, attention, concentration, fund of knowledge poor, consistent with his diagnosis mentioned in my initial note. PLAN: Continue psychotropics mentioned in my initial note. MAN Eladio APPIAH MD DR: NAVDEEP/phuc JOB#: [id number] / [id number]
[2017-10-06] MEDS: PRAZOSIN 1 MG CAPSULE. PO SCH (19:31)
[2017-10-06] MEDS: traZODone 50 MG TABLET. PO SCH (19:32)
[2017-10-06] MEDS: ATORVASTATIN CALCIUM 20 MG TABLET PO SCH (19:32)
[2017-10-06] MEDS: DONEPEZIL HCL 10 MG TABLET PO SCH (19:32)
--- NOTE | 2017-10-06 23:08 | PDOC ---
Exam Note: Anderson Note: Please also refer to the separate dictated note~for this date of service dictated separately.~Patient seen individually. Discussed the patient with Nursing staff reviewed the chart.~Reviewed interim history and current functioning. Reviewed vital signs,~Labs/ Radiology~and current medications noted below. Continue current treatment with the changes noted in the dictated addendum note Assessment: Vital Signs: Vital Signs Date Time Temp Pulse Resp B/P (MAP) Pulse Ox O2 Delivery O2 Flow Rate FiO2 10/06/17 19:33 87 117/70 10/06/17 17:05 97.6 16 96 I&O Intake and Output 10/06/17 07:00 Intake Total 780 ml Balance 780 ml Intake Oral 780 ml # Bowel Movements 2 Labs: Laboratory Tests Test 10/06/17 07:16 Glucose (Fingerstick) 153 mg/dL (70-99) H Current Medications: Meds: Current Medications Acetaminophen (Tylenol) 650 mg PRN Q6HRS PRN PO PAIN / TEMP; Start 09/25/17 at 21:15 Multi-Ingredient Ointment (Analgesic [place]) 1 nica PRN QID PRN TP MUSCLE PAIN; Start 09/25/17 at 21:15 Al Hydroxide/Mg Hydroxide (Mylanta Plus Xs) 15 ml PRN AFTMEALHC PRN PO DYSPEPSIA; Start 09/25/17 at 21:15 Magnesium Hydroxide (Milk Of Magnesia) 2,400 mg PRN QHS PRN PO CONSTIPATION; Start 09/25/17 at 21:15; Stop 09/25/17 at 21:25; Status DC Buspirone HCl (Buspar) 20 mg TID PO Last administered on 09/27/17at 08:11; Start 09/25/17 at 21:30; Stop 09/27/17 at 13:30; Status DC Divalproex Sodium (Depakote Er) 750 mg BID PO Last administered on 09/27/17at 08 :10; Start 09/25/17 at 21:30; Stop 09/27/17 at 13:30; Status DC Donepezil HCl (Aricept) 10 mg HS PO Last administered on 10/06/17 19:32; Start 09/25/17 at 21:30 Memantine (Namenda) 5 mg BID PO Last administered on 10/06/17at 19:33; Start at 21:30 Olanzapine (ZyPREXA) 7.5 mg DAILY PO Last administered on 09/27/17 08:10; Start 09/26/17 at 09:00; Stop 09/27/17 at 13:30; Status DC Trazodone HCl (Desyrel) 50 mg QHS PO Last administered on 10/06/17 19:32; Start 09/25/17 at 21:30 Venlafaxine HCl (Effexor) 50 mg TID PO Last administered on 09/27/17 13:42; Start 09/25/17 at 21:30; Stop 09/27/17 at 18:11; Status DC Acetaminophen (Tylenol) 650 mg PRN Q6HRS PRN PO PAIN / TEMP; Start 09/25/17 at 21:15; Stop 09/25/17 at 21:18; Status DC Aspirin (Children'S Aspirin) 81 mg DAILY PO Last administered on 10/06/17 08:32 ; Start 09/26/17 at 09:00 Vitamin D (Vitamin D3) 2,000 unit DAILY PO Last administered on 10/06/17 08:32 ; Start 09/26/17 at 09:00 Glipizide (Glucotrol) 15 mg DAILY PO Last administered on 10/06/17 08:31; Start 09/26/17 at 09:00 Metoprolol Tartrate (Lopressor) 25 mg BID PO Last administered on 10/06/17 19: 33; Start 09/25/17 at 21:30 Polyethylene Glycol (miraLAX) 17 gm DAILY PO Last administered on 10/06/17 08: 32; Start 09/26/17 at 09:00 Tamsulosin HCl (Flomax) 0.4 mg DAILY PO Last administered on 10/06/17 08:31; Start 09/26/17 at 09:00 Atorvastatin Calcium (Lipitor) 40 mg QHS PO Last administered on 10/06/17 19:32 ; Start 09/25/17 at 21:30 Non-Formulary Medication (Glipizide ) 10 mg DAILY PO ; Start 09/26/17 at 09:00; Stop 09/26/17 at 09:00; Status DC Magnesium Hydroxide (Milk Of Magnesia) 4,800 mg PRN Q8HRS PRN PO CONSTIPATION; Start 09/25/17 at 21:30 Metformin HCl (Glucophage) 1,000 mg BIDWMEALS PO Last administered on 10/06/17 18:46; Start 09/26/17 at 08:00 Multivitamins/ Calcium (Thera-M Plus) 1 tab DAILY PO Last administered on 08:31; Start 09/26/17 at 09:00 Non-Formulary Medication (Sodium Fluoride/ Pot Nitrate (Prevident 5000 Enamel Protect)) 1 nica TIDPC DT ; Start 09/26/17 at 08:30; Stop 09/26/17 at 08:30; Status DC Buspirone HCl (Buspar) 20 mg BID PO ; Start 09/27/17 at 21:00; Stop 09/27/17 at 21:00; Status DC Olanzapine (ZyPREXA) 5 mg DAILY PO Last administered on 10/06/17 08:31; Start 09/28/17 at 09:00 Divalproex Sodium (Depakote Sprinkles) 750 mg BID PO Last administered on 19:32; Start 09/27/17 at 21:00 Buspirone HCl (Buspar) 10 mg BID PO ; Start 09/27/17 at 21:00; Stop 09/30/17 at 09:00; Status UNV Prazosin HCl (Minipress) 1 mg HS PO Last administered on 10/02/17 20:56; Start 09/27/17 at 21:00; Stop 10/03/17 at 18:43; Status DC Buspirone HCl (Buspar) 10 mg BID PO Last administered on 10/06/17 19:33; Start 09/30/17 at 09:00 Buspirone HCl (Buspar) 20 mg BID PO Last administered on 09/29/17 20:50; Start 09/27/17 at 21:00; Stop 09/29/17 at 21:01; Status DC Venlafaxine HCl (Effexor) 75 mg BID92 PO Last administered on 09/29/17 13:31; Start 09/28/17 at 09:00; Stop 09/29/17 at 15:55; Status DC Venlafaxine HCl (Effexor) 75 mg DAILY PO Last administered on 10/06/17 08:31; Start 09/30/17 at 09:00 Olanzapine (ZyPREXA ZYDIS) 1.25 mg PRN Q2HR PRN PO PSYCHOSIS Last administered on 09/30/17at 17:46; Start 09/30/17 at 17:30 Prazosin HCl (Minipress) 2 mg HS PO Last administered on 10/06/17 19:31; Start 10/03/17 at 21:00 Active Scripts Active Reported Zyprexa (Olanzapine) 15 Mg Tablet 15 Mg PO Zyprexa (Olanzapine) 7.5 Mg Tablet 7.5 Mg PO DAILY Venlafaxine Hcl Er (Venlafaxine Hcl) 150 Mg Cap.er.24h 150 Mg PO DAILY Trazodone Hcl 50 Mg Tablet 50 Mg PO QHS Prevident 5000 Enamel Protect (Sodium Fluoride/Pot Nitrate) 100 Ml Paste..ml. 1 Nica DT TIDPC Miralax (Polyethylene Glycol 3350) 17 Gm Powd.pack 17 Gm PO DAILY Namenda (Memantine Hcl) 10 Mg Tablet 5 Mg PO BID Multivitamins (Multivitamin) 1 Each Tablet 1 Each PO DAILY Milk Of Magnesia (Magnesium Hydroxide) 2,400 Mg/10 Ml Oral.susp 4,800 Mg PO PRN Q8HRS PRN Metoprolol Tartrate 25 Mg Tablet 25 Mg PO BID Metformin Hcl 1,000 Mg Tablet 1,000 Mg PO BID Glipizide 5 Mg Tablet 5 Mg PO DAILY Glipizide 10 Mg Tablet 10 Mg PO DAILY Tamsulosin Hcl 0.4 Mg Cap.er.24h 0.4 Mg PO DAILY Depakote Er (Divalproex Sodium) 250 Mg Tab.er.24h 750 Mg PO BID Vitamin D3 (Cholecalciferol (Vitamin D3)) 1,000 Unit Tablet 2,000 Unit PO DAILY Buspirone Hcl 10 Mg Tablet 20 Mg PO TID Atorvastatin Calcium 40 Mg Tablet 40 Mg PO QHS Aspirin 81 Mg Tab.chew 81 Mg PO DAILY Aricept (Donepezil Hcl) 10 Mg Tablet 10 Mg PO HS Tylenol (Acetaminophen) 325 Mg Tablet 650 Mg PO PRN Q6HRS PRN I have reviewed the current psychotropics carefully including drug interactions. Risk benefit ratio favors no change other than as noted in my dictated progress note. Diagnosis: Problems: (1) Aggressive behavior (2) Medical clearance for psychiatric admission (3) Mood swings (4) Anxiety disorder (5) Dementia in Alzheimer's disease with delusions (6) Dementia in Alzheimer's disease with depression (7) Dementia, vascular, with delusions (8) Dementia, vascular, with depression (9) Impulse control disorder ARLYN APPIAH MD October 06, 2017 23:08
[2017-10-07 06:24] VITALS: BP 123/57
[2017-10-07] MEDS: metFORMIN 500 MG TABLET PO SCH ×2 (08:33→18:08)
[2017-10-07] MEDS: busPIRone 10 MG TABLET. PO SCH ×2 (08:33→20:49)
[2017-10-07] MEDS: DIVALPROEX 125 MG CAP.SPRINK PO SCH ×2 (08:34→20:49)
[2017-10-07] MEDS: VENLAFAXINE 75 MG TABLET. PO SCH (08:34)
[2017-10-07] MEDS: glipiZIDE 5 MG TABLET PO SCH (08:34)
[2017-10-07] MEDS: TAMSULOSIN 0.4 MG CAP.ER.24H. PO SCH (08:34)
[2017-10-07] MEDS: POLYETHYLENE GLYCOL 3350 17 GM PACKET. PO SCH (08:34)
[2017-10-07] MEDS: ASPIRIN 81 MG TAB.CHEW PO SCH (08:34)
[2017-10-07] MEDS: MEMANTINE 5 MG TABLET. PO SCH ×2 (08:35→20:49)
[2017-10-07] MEDS: CHOLECALCIFEROL (VITAMIN D3) 1,000 UNIT TABLET PO SCH (08:35)
[2017-10-07] MEDS: OLANZapine 5 MG TABLET PO SCH (08:35)
[2017-10-07] MEDS: MULTIVITAMIN with MINERAL TABLET. PO SCH (08:35)
[2017-10-07] MEDS: METOPROLOL TART IMMED RELEASE 25 MG TABLET PO SCH ×2 (09:00→20:50)
[2017-10-07 16:48] VITALS: BP 150/79
--- NOTE | 2017-10-07 18:55 | PDOC ---
Exam Note: Anderson Note: Please also refer to the separate dictated note~for this date of service dictated separately.~Patient seen individually. Discussed the patient with Nursing staff reviewed the chart.~Reviewed interim history and current functioning. Reviewed vital signs,~Labs/ Radiology~and current medications noted below. Continue current treatment with the changes noted in the dictated addendum note Assessment: Vital Signs: Vital Signs Date Time Temp Pulse Resp B/P (MAP) Pulse Ox O2 Delivery O2 Flow Rate FiO2 10/07/17 16:48 97.6 95 20 150/79 (102) 97 I&O Intake and Output 10/07/17 07:00 Intake Total 600 ml Balance 600 ml Intake Oral 600 ml # Bowel Movements 2 Labs: Laboratory Tests Test 10/07/17 07:19 Glucose (Fingerstick) 153 mg/dL (70-99) H Current Medications: Meds: Current Medications Acetaminophen (Tylenol) 650 mg PRN Q6HRS PRN PO PAIN / TEMP; Start 09/25/17 at 21:15 Multi-Ingredient Ointment (Analgesic [place]) 1 nica PRN QID PRN TP MUSCLE PAIN; Start 09/25/17 at 21:15 Al Hydroxide/Mg Hydroxide (Mylanta Plus Xs) 15 ml PRN AFTMEALHC PRN PO DYSPEPSIA; Start 09/25/17 at 21:15 Magnesium Hydroxide (Milk Of Magnesia) 2,400 mg PRN QHS PRN PO CONSTIPATION; Start 09/25/17 at 21:15; Stop 09/25/17 at 21:25; Status DC Buspirone HCl (Buspar) 20 mg TID PO Last administered on 09/27/17at 08:11; Start 09/25/17 at 21:30; Stop 09/27/17 at 13:30; Status DC Divalproex Sodium (Depakote Er) 750 mg BID PO Last administered on 09/27/17at 08 :10; Start 09/25/17 at 21:30; Stop 09/27/17 at 13:30; Status DC Donepezil HCl (Aricept) 10 mg HS PO Last administered on 10/06/17at 19:32; Start 09/25/17 at 21:30 Memantine (Namenda) 5 mg BID PO Last administered on 10/07/17at 08:35; Start at 21:30 Olanzapine (ZyPREXA) 7.5 mg DAILY PO Last administered on 09/27/17 08:10; Start 09/26/17 at 09:00; Stop 09/27/17 at 13:30; Status DC Trazodone HCl (Desyrel) 50 mg QHS PO Last administered on 10/06/17 19:32; Start 09/25/17 at 21:30 Venlafaxine HCl (Effexor) 50 mg TID PO Last administered on 09/27/17 13:42; Start 09/25/17 at 21:30; Stop 09/27/17 at 18:11; Status DC Acetaminophen (Tylenol) 650 mg PRN Q6HRS PRN PO PAIN / TEMP; Start 09/25/17 at 21:15; Stop 09/25/17 at 21:18; Status DC Aspirin (Children'S Aspirin) 81 mg DAILY PO Last administered on 10/07/17 08:34 ; Start 09/26/17 at 09:00 Vitamin D (Vitamin D3) 2,000 unit DAILY PO Last administered on 10/07/17 08:35 ; Start 09/26/17 at 09:00 Glipizide (Glucotrol) 15 mg DAILY PO Last administered on 10/07/17 08:34; Start 09/26/17 at 09:00 Metoprolol Tartrate (Lopressor) 25 mg BID PO Last administered on 10/06/17 19: 33; Start 09/25/17 at 21:30 Polyethylene Glycol (miraLAX) 17 gm DAILY PO Last administered on 10/07/17 08: 34; Start 09/26/17 at 09:00 Tamsulosin HCl (Flomax) 0.4 mg DAILY PO Last administered on 10/07/17 08:34; Start 09/26/17 at 09:00 Atorvastatin Calcium (Lipitor) 40 mg QHS PO Last administered on 10/06/17 19:32 ; Start 09/25/17 at 21:30 Non-Formulary Medication (Glipizide ) 10 mg DAILY PO ; Start 09/26/17 at 09:00; Stop 09/26/17 at 09:00; Status DC Magnesium Hydroxide (Milk Of Magnesia) 4,800 mg PRN Q8HRS PRN PO CONSTIPATION; Start 09/25/17 at 21:30 Metformin HCl (Glucophage) 1,000 mg BIDWMEALS PO Last administered on 10/07/17 18:08; Start 09/26/17 at 08:00 Multivitamins/ Calcium (Thera-M Plus) 1 tab DAILY PO Last administered on 08:35; Start 09/26/17 at 09:00 Non-Formulary Medication (Sodium Fluoride/ Pot Nitrate (Prevident 5000 Enamel Protect)) 1 nica TIDPC DT ; Start 09/26/17 at 08:30; Stop 09/26/17 at 08:30; Status DC Buspirone HCl (Buspar) 20 mg BID PO ; Start 09/27/17 at 21:00; Stop 09/27/17 at 21:00; Status DC Olanzapine (ZyPREXA) 5 mg DAILY PO Last administered on 10/07/17 08:35; Start 09/28/17 at 09:00 Divalproex Sodium (Depakote Sprinkles) 750 mg BID PO Last administered on 08:34; Start 09/27/17 at 21:00 Buspirone HCl (Buspar) 10 mg BID PO ; Start 09/27/17 at 21:00; Stop 09/30/17 at 09:00; Status UNV Prazosin HCl (Minipress) 1 mg HS PO Last administered on 10/02/17 20:56; Start 09/27/17 at 21:00; Stop 10/03/17 at 18:43; Status DC Buspirone HCl (Buspar) 10 mg BID PO Last administered on 10/07/17 08:33; Start 09/30/17 at 09:00 Buspirone HCl (Buspar) 20 mg BID PO Last administered on 09/29/17at 20:50; Start 09/27/17 at 21:00; Stop 09/29/17 at 21:01; Status DC Venlafaxine HCl (Effexor) 75 mg BID92 PO Last administered on 09/29/17 13:31; Start 09/28/17 at 09:00; Stop 09/29/17 at 15:55; Status DC Venlafaxine HCl (Effexor) 75 mg DAILY PO Last administered on 10/07/17 08:34; Start 09/30/17 at 09:00 Olanzapine (ZyPREXA ZYDIS) 1.25 mg PRN Q2HR PRN PO PSYCHOSIS Last administered on 09/30/17at 17:46; Start 09/30/17 at 17:30 Prazosin HCl (Minipress) 2 mg HS PO Last administered on 10/06/17at 19:31; Start 10/03/17 at 21:00; Stop 10/07/17 at 18:40; Status DC Prazosin HCl (Minipress) 3 mg HS PO ; Start 10/07/17 at 21:00 Active Scripts Active Reported Zyprexa (Olanzapine) 15 Mg Tablet 15 Mg PO Zyprexa (Olanzapine) 7.5 Mg Tablet 7.5 Mg PO DAILY Venlafaxine Hcl Er (Venlafaxine Hcl) 150 Mg Cap.er.24h 150 Mg PO DAILY Trazodone Hcl 50 Mg Tablet 50 Mg PO QHS Prevident 5000 Enamel Protect (Sodium Fluoride/Pot Nitrate) 100 Ml Paste..ml. 1 Nica DT TIDPC Miralax (Polyethylene Glycol 3350) 17 Gm Powd.pack 17 Gm PO DAILY Namenda (Memantine Hcl) 10 Mg Tablet 5 Mg PO BID Multivitamins (Multivitamin) 1 Each Tablet 1 Each PO DAILY Milk Of Magnesia (Magnesium Hydroxide) 2,400 Mg/10 Ml Oral.susp 4,800 Mg PO PRN Q8HRS PRN Metoprolol Tartrate 25 Mg Tablet 25 Mg PO BID Metformin Hcl 1,000 Mg Tablet 1,000 Mg PO BID Glipizide 5 Mg Tablet 5 Mg PO DAILY Glipizide 10 Mg Tablet 10 Mg PO DAILY Tamsulosin Hcl 0.4 Mg Cap.er.24h 0.4 Mg PO DAILY Depakote Er (Divalproex Sodium) 250 Mg Tab.er.24h 750 Mg PO BID Vitamin D3 (Cholecalciferol (Vitamin D3)) 1,000 Unit Tablet 2,000 Unit PO DAILY Buspirone Hcl 10 Mg Tablet 20 Mg PO TID Atorvastatin Calcium 40 Mg Tablet 40 Mg PO QHS Aspirin 81 Mg Tab.chew 81 Mg PO DAILY Aricept (Donepezil Hcl) 10 Mg Tablet 10 Mg PO HS Tylenol (Acetaminophen) 325 Mg Tablet 650 Mg PO PRN Q6HRS PRN I have reviewed the current psychotropics carefully including drug interactions. Risk benefit ratio favors no change other than as noted in my dictated progress note. 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
[2017-10-07] MEDS: ATORVASTATIN CALCIUM 20 MG TABLET PO SCH (20:49)
[2017-10-07] MEDS: traZODone 50 MG TABLET. PO SCH (20:50)
[2017-10-07] MEDS: DONEPEZIL HCL 10 MG TABLET PO SCH (20:50)
[2017-10-07] MEDS: PRAZOSIN 1 MG CAPSULE. PO SCH (20:52)
[2017-10-08] MEDS: ASPIRIN 81 MG TAB.CHEW PO SCH (06:00)
[2017-10-08] MEDS: glipiZIDE 5 MG TABLET PO SCH (06:00)
[2017-10-08] MEDS: OLANZapine 5 MG TABLET PO SCH (06:00)
[2017-10-08] MEDS: DIVALPROEX 125 MG CAP.SPRINK PO SCH ×2 (06:01→19:36)
[2017-10-08] MEDS: CHOLECALCIFEROL (VITAMIN D3) 1,000 UNIT TABLET PO SCH (06:01)
[2017-10-08] MEDS: TAMSULOSIN 0.4 MG CAP.ER.24H. PO SCH (06:01)
[2017-10-08] MEDS: VENLAFAXINE 75 MG TABLET. PO SCH (06:02)
[2017-10-08] MEDS: POLYETHYLENE GLYCOL 3350 17 GM PACKET. PO SCH (06:02)
[2017-10-08] MEDS: METOPROLOL TART IMMED RELEASE 25 MG TABLET PO SCH ×2 (06:02→19:36)
[2017-10-08] MEDS: MEMANTINE 5 MG TABLET. PO SCH ×2 (06:02→19:36)
[2017-10-08] MEDS: busPIRone 10 MG TABLET. PO SCH ×2 (06:02→19:36)
[2017-10-08] MEDS: MULTIVITAMIN with MINERAL TABLET. PO SCH (06:02)
[2017-10-08] MEDS: metFORMIN 500 MG TABLET PO SCH ×2 (06:02→17:12)
[2017-10-08 06:21] VITALS: BP 133/67
[2017-10-08 16:35] VITALS: BP 157/78
[2017-10-08] MEDS: ATORVASTATIN CALCIUM 20 MG TABLET PO SCH (19:35)
[2017-10-08] MEDS: PRAZOSIN 1 MG CAPSULE. PO SCH (19:36)
[2017-10-08] MEDS: DONEPEZIL HCL 10 MG TABLET PO SCH (19:36)
[2017-10-08] MEDS: traZODone 50 MG TABLET. PO SCH (19:36)
--- NOTE | 2017-10-08 21:04 | PDOC ---
Exam Note: Anderson Note: Please also refer to the separate dictated note~for this date of service dictated separately.~Patient seen individually. Discussed the patient with Nursing staff reviewed the chart.~Reviewed interim history and current functioning. Reviewed vital signs,~Labs/ Radiology~and current medications noted below. Continue current treatment with the changes noted in the dictated addendum note Assessment: Vital Signs: Vital Signs Date Time Temp Pulse Resp B/P (MAP) Pulse Ox O2 Delivery O2 Flow Rate FiO2 10/08/17 19:36 79 157/78 10/08/17 16:35 97.1 20 97 I&O Intake and Output 10/08/17 07:00 Intake Total 1080 ml Balance 1080 ml Intake Oral 1080 ml # Bowel Movements 1 Labs: Laboratory Tests Test 10/08/17 06:03 Glucose (Fingerstick) 175 mg/dL (70-99) H Current Medications: Meds: Current Medications Acetaminophen (Tylenol) 650 mg PRN Q6HRS PRN PO PAIN / TEMP; Start 09/25/17 at 21:15 Multi-Ingredient Ointment (Analgesic [place]) 1 nica PRN QID PRN TP MUSCLE PAIN; Start 09/25/17 at 21:15 Al Hydroxide/Mg Hydroxide (Mylanta Plus Xs) 15 ml PRN AFTMEALHC PRN PO DYSPEPSIA; Start 09/25/17 at 21:15 Magnesium Hydroxide (Milk Of Magnesia) 2,400 mg PRN QHS PRN PO CONSTIPATION; Start 09/25/17 at 21:15; Stop 09/25/17 at 21:25; Status DC Buspirone HCl (Buspar) 20 mg TID PO Last administered on 09/27/17at 08:11; Start 09/25/17 at 21:30; Stop 09/27/17 at 13:30; Status DC Divalproex Sodium (Depakote Er) 750 mg BID PO Last administered on 09/27/17at 08 :10; Start 09/25/17 at 21:30; Stop 09/27/17 at 13:30; Status DC Donepezil HCl (Aricept) 10 mg HS PO Last administered on 10/08/17 19:36; Start 09/25/17 at 21:30 Memantine (Namenda) 5 mg BID PO Last administered on 10/08/17 19:36; Start at 21:30 Olanzapine (ZyPREXA) 7.5 mg DAILY PO Last administered on 09/27/17 08:10; Start 09/26/17 at 09:00; Stop 09/27/17 at 13:30; Status DC Trazodone HCl (Desyrel) 50 mg QHS PO Last administered on 10/08/17 19:36; Start 09/25/17 at 21:30 Venlafaxine HCl (Effexor) 50 mg TID PO Last administered on 09/27/17at 13:42; Start 09/25/17 at 21:30; Stop 09/27/17 at 18:11; Status DC Acetaminophen (Tylenol) 650 mg PRN Q6HRS PRN PO PAIN / TEMP; Start 09/25/17 at 21:15; Stop 09/25/17 at 21:18; Status DC Aspirin (Children'S Aspirin) 81 mg DAILY PO Last administered on 10/08/17 06:00 ; Start 09/26/17 at 09:00 Vitamin D (Vitamin D3) 2,000 unit DAILY PO Last administered on 10/08/17 06:01 ; Start 09/26/17 at 09:00 Glipizide (Glucotrol) 15 mg DAILY PO Last administered on 10/08/17 06:00; Start 09/26/17 at 09:00 Metoprolol Tartrate (Lopressor) 25 mg BID PO Last administered on 10/08/17 19: 36; Start 09/25/17 at 21:30 Polyethylene Glycol (miraLAX) 17 gm DAILY PO Last administered on 10/08/17 06: 02; Start 09/26/17 at 09:00 Tamsulosin HCl (Flomax) 0.4 mg DAILY PO Last administered on 10/08/17 06:01; Start 09/26/17 at 09:00 Atorvastatin Calcium (Lipitor) 40 mg QHS PO Last administered on 10/08/17 19:35 ; Start 09/25/17 at 21:30 Non-Formulary Medication (Glipizide ) 10 mg DAILY PO ; Start 09/26/17 at 09:00; Stop 09/26/17 at 09:00; Status DC Magnesium Hydroxide (Milk Of Magnesia) 4,800 mg PRN Q8HRS PRN PO CONSTIPATION; Start 09/25/17 at 21:30 Metformin HCl (Glucophage) 1,000 mg BIDWMEALS PO Last administered on 10/08/17 17:12; Start 09/26/17 at 08:00 Multivitamins/ Calcium (Thera-M Plus) 1 tab DAILY PO Last administered on 06:02; Start 09/26/17 at 09:00 Non-Formulary Medication (Sodium Fluoride/ Pot Nitrate (Prevident 5000 Enamel Protect)) 1 nica TIDPC DT ; Start 09/26/17 at 08:30; Stop 09/26/17 at 08:30; Status DC Buspirone HCl (Buspar) 20 mg BID PO ; Start 09/27/17 at 21:00; Stop 09/27/17 at 21:00; Status DC Olanzapine (ZyPREXA) 5 mg DAILY PO Last administered on 10/08/17 06:00; Start 09/28/17 at 09:00 Divalproex Sodium (Depakote Sprinkles) 750 mg BID PO Last administered on 19:36; Start 09/27/17 at 21:00 Buspirone HCl (Buspar) 10 mg BID PO ; Start 09/27/17 at 21:00; Stop 09/30/17 at 09:00; Status UNV Prazosin HCl (Minipress) 1 mg HS PO Last administered on 10/02/17at 20:56; Start 09/27/17 at 21:00; Stop 10/03/17 at 18:43; Status DC Buspirone HCl (Buspar) 10 mg BID PO Last administered on 10/08/17 19:36; Start 09/30/17 at 09:00 Buspirone HCl (Buspar) 20 mg BID PO Last administered on 09/29/17at 20:50; Start 09/27/17 at 21:00; Stop 09/29/17 at 21:01; Status DC Venlafaxine HCl (Effexor) 75 mg BID92 PO Last administered on 09/29/17 13:31; Start 09/28/17 at 09:00; Stop 09/29/17 at 15:55; Status DC Venlafaxine HCl (Effexor) 75 mg DAILY PO Last administered on 10/08/17 06:02; Start 09/30/17 at 09:00 Olanzapine (ZyPREXA ZYDIS) 1.25 mg PRN Q2HR PRN PO PSYCHOSIS Last administered on 09/30/17at 17:46; Start 09/30/17 at 17:30 Prazosin HCl (Minipress) 2 mg HS PO Last administered on 10/06/17 19:31; Start 10/03/17 at 21:00; Stop 10/07/17 at 18:40; Status DC Prazosin HCl (Minipress) 3 mg HS PO Last administered on 10/08/17 19:36; Start 10/07/17 at 21:00 Active Scripts Active Reported Zyprexa (Olanzapine) 15 Mg Tablet 15 Mg PO Zyprexa (Olanzapine) 7.5 Mg Tablet 7.5 Mg PO DAILY Venlafaxine Hcl Er (Venlafaxine Hcl) 150 Mg Cap.er.24h 150 Mg PO DAILY Trazodone Hcl 50 Mg Tablet 50 Mg PO QHS Prevident 5000 Enamel Protect (Sodium Fluoride/Pot Nitrate) 100 Ml Paste..ml. 1 Nica DT TIDPC Miralax (Polyethylene Glycol 3350) 17 Gm Powd.pack 17 Gm PO DAILY Namenda (Memantine Hcl) 10 Mg Tablet 5 Mg PO BID Multivitamins (Multivitamin) 1 Each Tablet 1 Each PO DAILY Milk Of Magnesia (Magnesium Hydroxide) 2,400 Mg/10 Ml Oral.susp 4,800 Mg PO PRN Q8HRS PRN Metoprolol Tartrate 25 Mg Tablet 25 Mg PO BID Metformin Hcl 1,000 Mg Tablet 1,000 Mg PO BID Glipizide 5 Mg Tablet 5 Mg PO DAILY Glipizide 10 Mg Tablet 10 Mg PO DAILY Tamsulosin Hcl 0.4 Mg Cap.er.24h 0.4 Mg PO DAILY Depakote Er (Divalproex Sodium) 250 Mg Tab.er.24h 750 Mg PO BID Vitamin D3 (Cholecalciferol (Vitamin D3)) 1,000 Unit Tablet 2,000 Unit PO DAILY Buspirone Hcl 10 Mg Tablet 20 Mg PO TID Atorvastatin Calcium 40 Mg Tablet 40 Mg PO QHS Aspirin 81 Mg Tab.chew 81 Mg PO DAILY Aricept (Donepezil Hcl) 10 Mg Tablet 10 Mg PO HS Tylenol (Acetaminophen) 325 Mg Tablet 650 Mg PO PRN Q6HRS PRN I have reviewed the current psychotropics carefully including drug interactions. Risk benefit ratio favors no change other than as noted in my dictated progress note. Diagnosis: Problems: (1) Aggressive behavior (2) Medical clearance for psychiatric admission (3) Mood swings (4) Anxiety disorder (5) Dementia in Alzheimer's disease with delusions (6) Dementia in Alzheimer's disease with depression (7) Dementia, vascular, with delusions (8) Dementia, vascular, with depression (9) Impulse control disorder ARLYN APPIAH MD October 08, 2017 21:04
--- NOTE | 2017-10-09 05:52 | PN ---
DATE: 10/05/2017 This is a late entry for 10/05/2017 and covers the elements not covered in my initial note of 10/05/2017. SUBJECTIVE: I met with the patient in the evening. The patient slept 9 hours, little more verbal, which is an improvement, certainly confused. REVIEW OF SYSTEMS: Ambulation impaired, in wheelchair. No CV, , pulmonary, eye system symptoms on review. Reliability poor. MENTAL STATUS EXAM: Oriented to himself. Insight, judgment, recent and remote memory, attention, concentration, fund of knowledge poor, consistent with his diagnosis, but he was smiling as I met with him. IMPRESSION: Unchanged from initial note. PLAN: No change from my initial note. MAN Eladio APPIAH MD DR: NAVDEEP/phuc JOB#: [id number] / [id number]
--- NOTE | 2017-10-09 05:54 | PN ---
DATE: 10/06/2017 This is a late entry for 10/06/2017 and covers the elements not covered in my initial note of 10/06/2017. SUBJECTIVE: I met with the patient in the evening. The patient has been pleasant, smiling as I met with him. REVIEW OF SYSTEMS: Impaired ambulation, in wheelchair. No CV, , pulmonary, eye system symptoms on review. Very disorganized, pleasant and calm per nursing report. MENTAL STATUS EXAM: Oriented to himself. Insight, judgment, recent and remote memory, attention, concentration, fund of knowledge poor, consistent with his diagnosis mentioned in my initial note. PLAN: Unchanged from my initial note. MAN Eladio APPIAH MD DR: NAVDEEP/phuc JOB#: [id number] / [id number]
--- NOTE | 2017-10-09 05:55 | PN ---
DATE: 10/07/2017 This is a late entry for 10/07/2017 and covers the elements not covered in my initial note of 10/07/2017. SUBJECTIVE: I met with the patient in the evening. The patient slept 7-1/4 hours. Overall, doing better, still gets startled easily, has symptoms of posttraumatic stress disorder. REVIEW OF SYSTEMS: Ambulation impaired, in wheelchair. No CV, , pulmonary, eye, ENT system symptoms on review. Reliability poor. MENTAL STATUS EXAM: Oriented to himself. Insight, judgment, recent and remote memory, attention, concentration, fund of knowledge poor, consistent with his diagnosis mentioned in my initial note. PLAN: Unchanged from my initial note. MAN Eladio APPIAH MD DR: NAVDEEP/phuc JOB#: [id number] / [id number]
[2017-10-09 06:05] VITALS: BP 124/73
[2017-10-09] MEDS: POLYETHYLENE GLYCOL 3350 17 GM PACKET. PO SCH (07:48)
[2017-10-09 07:56] VITALS: BP 149/76
[2017-10-09] MEDS: busPIRone 10 MG TABLET. PO SCH ×2 (07:56→20:09)
[2017-10-09] MEDS: ASPIRIN 81 MG TAB.CHEW PO SCH (07:56)
[2017-10-09] MEDS: OLANZapine 5 MG TABLET PO SCH (07:56)
[2017-10-09] MEDS: DIVALPROEX 125 MG CAP.SPRINK PO SCH ×2 (07:57→20:09)
[2017-10-09] MEDS: MEMANTINE 5 MG TABLET. PO SCH ×2 (07:57→20:08)
[2017-10-09] MEDS: MULTIVITAMIN with MINERAL TABLET. PO SCH (07:57)
[2017-10-09] MEDS: metFORMIN 500 MG TABLET PO SCH ×2 (07:57→17:22)
[2017-10-09] MEDS: CHOLECALCIFEROL (VITAMIN D3) 1,000 UNIT TABLET PO SCH (07:57)
[2017-10-09] MEDS: glipiZIDE 5 MG TABLET PO SCH (07:57)
[2017-10-09] MEDS: VENLAFAXINE 75 MG TABLET. PO SCH (07:57)
[2017-10-09] MEDS: METOPROLOL TART IMMED RELEASE 25 MG TABLET PO SCH ×2 (07:57→20:08)
[2017-10-09] MEDS: TAMSULOSIN 0.4 MG CAP.ER.24H. PO SCH (07:57)
[2017-10-09 16:19] VITALS: BP 184/61
[2017-10-09] MEDS: DONEPEZIL HCL 10 MG TABLET PO SCH (20:08)
[2017-10-09] MEDS: traZODone 50 MG TABLET. PO SCH (20:08)
[2017-10-09] MEDS: ATORVASTATIN CALCIUM 20 MG TABLET PO SCH (20:09)
[2017-10-09] MEDS: PRAZOSIN 1 MG CAPSULE. PO SCH (20:09)
--- NOTE | 2017-10-09 21:04 | PDOC ---
Exam Note: Anderson Note: Please also refer to the separate dictated note~for this date of service dictated separately.~Patient seen individually. Discussed the patient with Nursing staff reviewed the chart.~Reviewed interim history and current functioning. Reviewed vital signs,~Labs/ Radiology~and current medications noted below. Continue current treatment with the changes noted in the dictated addendum note Assessment: Vital Signs: Vital Signs Date Time Temp Pulse Resp B/P (MAP) Pulse Ox O2 Delivery O2 Flow Rate FiO2 10/09/17 20:09 91 184/61 10/09/17 16:19 99.3 18 97 10/09/17 06:05 Room Air I&O Intake and Output 10/09/17 07:00 Intake Total 960 ml Balance 960 ml Intake Oral 960 ml # Voids 3 # Bowel Movements 2 Labs: Laboratory Tests Test 10/09/17 07:35 Glucose (Fingerstick) 139 mg/dL (70-99) H Current Medications: Meds: Current Medications Acetaminophen (Tylenol) 650 mg PRN Q6HRS PRN PO PAIN / TEMP; Start 09/25/17 at 21:15 Multi-Ingredient Ointment (Analgesic [place]) 1 nica PRN QID PRN TP MUSCLE PAIN; Start 09/25/17 at 21:15 Al Hydroxide/Mg Hydroxide (Mylanta Plus Xs) 15 ml PRN AFTMEALHC PRN PO DYSPEPSIA; Start 09/25/17 at 21:15 Magnesium Hydroxide (Milk Of Magnesia) 2,400 mg PRN QHS PRN PO CONSTIPATION; Start 09/25/17 at 21:15; Stop 09/25/17 at 21:25; Status DC Buspirone HCl (Buspar) 20 mg TID PO Last administered on 09/27/17at 08:11; Start 09/25/17 at 21:30; Stop 09/27/17 at 13:30; Status DC Divalproex Sodium (Depakote Er) 750 mg BID PO Last administered on 09/27/17at 08 :10; Start 09/25/17 at 21:30; Stop 09/27/17 at 13:30; Status DC Donepezil HCl (Aricept) 10 mg HS PO Last administered on 10/09/17at 20:08; Start 09/25/17 at 21:30 Memantine (Namenda) 5 mg BID PO Last administered on 10/09/17 20:08; Start at 21:30 Olanzapine (ZyPREXA) 7.5 mg DAILY PO Last administered on 09/27/17 08:10; Start 09/26/17 at 09:00; Stop 09/27/17 at 13:30; Status DC Trazodone HCl (Desyrel) 50 mg QHS PO Last administered on 10/09/17 20:08; Start 09/25/17 at 21:30 Venlafaxine HCl (Effexor) 50 mg TID PO Last administered on 09/27/17 13:42; Start 09/25/17 at 21:30; Stop 09/27/17 at 18:11; Status DC Acetaminophen (Tylenol) 650 mg PRN Q6HRS PRN PO PAIN / TEMP; Start 09/25/17 at 21:15; Stop 09/25/17 at 21:18; Status DC Aspirin (Children'S Aspirin) 81 mg DAILY PO Last administered on 10/09/17 07:56 ; Start 09/26/17 at 09:00 Vitamin D (Vitamin D3) 2,000 unit DAILY PO Last administered on 10/09/17 07:57 ; Start 09/26/17 at 09:00 Glipizide (Glucotrol) 15 mg DAILY PO Last administered on 10/09/17 07:57; Start 09/26/17 at 09:00 Metoprolol Tartrate (Lopressor) 25 mg BID PO Last administered on 10/09/17 20: 08; Start 09/25/17 at 21:30 Polyethylene Glycol (miraLAX) 17 gm DAILY PO Last administered on 10/08/17 06: 02; Start 09/26/17 at 09:00 Tamsulosin HCl (Flomax) 0.4 mg DAILY PO Last administered on 10/09/17 07:57; Start 09/26/17 at 09:00 Atorvastatin Calcium (Lipitor) 40 mg QHS PO Last administered on 10/09/17 20:09 ; Start 09/25/17 at 21:30 Non-Formulary Medication (Glipizide ) 10 mg DAILY PO ; Start 09/26/17 at 09:00; Stop 09/26/17 at 09:00; Status DC Magnesium Hydroxide (Milk Of Magnesia) 4,800 mg PRN Q8HRS PRN PO CONSTIPATION; Start 09/25/17 at 21:30 Metformin HCl (Glucophage) 1,000 mg BIDWMEALS PO Last administered on 10/09/17 17:22; Start 09/26/17 at 08:00 Multivitamins/ Calcium (Thera-M Plus) 1 tab DAILY PO Last administered on 07:57; Start 09/26/17 at 09:00 Non-Formulary Medication (Sodium Fluoride/ Pot Nitrate (Prevident 5000 Enamel Protect)) 1 nica TIDPC DT ; Start 09/26/17 at 08:30; Stop 09/26/17 at 08:30; Status DC Buspirone HCl (Buspar) 20 mg BID PO ; Start 09/27/17 at 21:00; Stop 09/27/17 at 21:00; Status DC Olanzapine (ZyPREXA) 5 mg DAILY PO Last administered on 10/09/17 07:56; Start 09/28/17 at 09:00 Divalproex Sodium (Depakote Sprinkles) 750 mg BID PO Last administered on 20:09; Start 09/27/17 at 21:00 Buspirone HCl (Buspar) 10 mg BID PO ; Start 09/27/17 at 21:00; Stop 09/30/17 at 09:00; Status UNV Prazosin HCl (Minipress) 1 mg HS PO Last administered on 10/02/17 20:56; Start 09/27/17 at 21:00; Stop 10/03/17 at 18:43; Status DC Buspirone HCl (Buspar) 10 mg BID PO Last administered on 10/09/17 20:09; Start 09/30/17 at 09:00 Buspirone HCl (Buspar) 20 mg BID PO Last administered on 09/29/17at 20:50; Start 09/27/17 at 21:00; Stop 09/29/17 at 21:01; Status DC Venlafaxine HCl (Effexor) 75 mg BID92 PO Last administered on 09/29/17 13:31; Start 09/28/17 at 09:00; Stop 09/29/17 at 15:55; Status DC Venlafaxine HCl (Effexor) 75 mg DAILY PO Last administered on 10/09/17at 07:57; Start 09/30/17 at 09:00 Olanzapine (ZyPREXA ZYDIS) 1.25 mg PRN Q2HR PRN PO PSYCHOSIS Last administered on 09/30/17at 17:46; Start 09/30/17 at 17:30 Prazosin HCl (Minipress) 2 mg HS PO Last administered on 10/06/17at 19:31; Start 10/03/17 at 21:00; Stop 10/07/17 at 18:40; Status DC Prazosin HCl (Minipress) 3 mg HS PO Last administered on 10/09/17at 20:09; Start 10/07/17 at 21:00 Active Scripts Active Reported Zyprexa (Olanzapine) 15 Mg Tablet 15 Mg PO Zyprexa (Olanzapine) 7.5 Mg Tablet 7.5 Mg PO DAILY Venlafaxine Hcl Er (Venlafaxine Hcl) 150 Mg Cap.er.24h 150 Mg PO DAILY Trazodone Hcl 50 Mg Tablet 50 Mg PO QHS Prevident 5000 Enamel Protect (Sodium Fluoride/Pot Nitrate) 100 Ml Paste..ml. 1 Nica DT TIDPC Miralax (Polyethylene Glycol 3350) 17 Gm Powd.pack 17 Gm PO DAILY Namenda (Memantine Hcl) 10 Mg Tablet 5 Mg PO BID Multivitamins (Multivitamin) 1 Each Tablet 1 Each PO DAILY Milk Of Magnesia (Magnesium Hydroxide) 2,400 Mg/10 Ml Oral.susp 4,800 Mg PO PRN Q8HRS PRN Metoprolol Tartrate 25 Mg Tablet 25 Mg PO BID Metformin Hcl 1,000 Mg Tablet 1,000 Mg PO BID Glipizide 5 Mg Tablet 5 Mg PO DAILY Glipizide 10 Mg Tablet 10 Mg PO DAILY Tamsulosin Hcl 0.4 Mg Cap.er.24h 0.4 Mg PO DAILY Depakote Er (Divalproex Sodium) 250 Mg Tab.er.24h 750 Mg PO BID Vitamin D3 (Cholecalciferol (Vitamin D3)) 1,000 Unit Tablet 2,000 Unit PO DAILY Buspirone Hcl 10 Mg Tablet 20 Mg PO TID Atorvastatin Calcium 40 Mg Tablet 40 Mg PO QHS Aspirin 81 Mg Tab.chew 81 Mg PO DAILY Aricept (Donepezil Hcl) 10 Mg Tablet 10 Mg PO HS Tylenol (Acetaminophen) 325 Mg Tablet 650 Mg PO PRN Q6HRS PRN I have reviewed the current psychotropics carefully including drug interactions. Risk benefit ratio favors no change other than as noted in my dictated progress note. Diagnosis: Problems: (1) Aggressive behavior (2) Medical clearance for psychiatric admission (3) Mood swings (4) Anxiety disorder (5) Dementia in Alzheimer's disease with delusions (6) Dementia in Alzheimer's disease with depression (7) Dementia, vascular, with delusions (8) Dementia, vascular, with depression (9) Impulse control disorder ARLYN APPIAH MD October 09, 2017 21:03
[2017-10-10] MEDS ORDERED: MAG355OR17 PO (00:24)
[2017-10-10] MEDS ORDERED: METH29OI TP (00:24)
[2017-10-10] MEDS ORDERED: OLAN5TAB9 PO (00:25)
[2017-10-10] MEDS ORDERED: OLAN5TAB7 PO (00:26)
[2017-10-10] MEDS ORDERED: GLIP5TAB3 PO (00:27)
[2017-10-10] MEDS ORDERED: PRAZ1CAP2 PO (00:27)
[2017-10-10] MEDS ORDERED: VENL75TA PO (00:27)
--- NOTE | 2017-10-10 00:27 | PN ---
DATE: 10/08/2017 This is a late entry of 10/08/2017 covers elements not covered in my initial note of 10/08/2017. SUBJECTIVE: I met with the patient in the evening of 10/08/2017. The patient slept 9 hours previous evening, compliant with medications. His and daughter visited and after they left, he was somewhat tearful, certainly remains confused. REVIEW OF SYSTEMS: Ambulation impaired, in wheelchair. No CV, , pulmonary, eye, ENT system symptoms on review. MENTAL STATUS EXAM: Oriented to himself. Insight, judgment, recent and remote memory, attention, concentration, fund of knowledge poor, consistent with his diagnosis mentioned in my initial note. PLAN: Continue psychotropics mentioned in my initial note including prazosin 3 mg at bedtime for PTSD. MAN Eladio APPIAH MD DR: NAVDEEP/phuc JOB#: [id number] / [id number]
[2017-10-10 05:57] VITALS: BP 116/55
[2017-10-10] MEDS: MULTIVITAMIN with MINERAL TABLET. PO SCH (08:20)
[2017-10-10] MEDS: POLYETHYLENE GLYCOL 3350 17 GM PACKET. PO SCH (08:20)
[2017-10-10] MEDS: glipiZIDE 5 MG TABLET PO SCH (08:20)
[2017-10-10] MEDS: VENLAFAXINE 75 MG TABLET. PO SCH (08:20)
[2017-10-10] MEDS: metFORMIN 500 MG TABLET PO SCH (08:20)
[2017-10-10 08:21] VITALS: BP 116/55
[2017-10-10] MEDS: OLANZapine 5 MG TABLET PO SCH (08:21)
[2017-10-10] MEDS: ASPIRIN 81 MG TAB.CHEW PO SCH (08:21)
[2017-10-10] MEDS: MEMANTINE 5 MG TABLET. PO SCH (08:21)
[2017-10-10] MEDS: busPIRone 10 MG TABLET. PO SCH (08:21)
[2017-10-10] MEDS: TAMSULOSIN 0.4 MG CAP.ER.24H. PO SCH (08:21)
[2017-10-10] MEDS: METOPROLOL TART IMMED RELEASE 25 MG TABLET PO SCH (08:21)
[2017-10-10] MEDS: CHOLECALCIFEROL (VITAMIN D3) 1,000 UNIT TABLET PO SCH (08:21)
[2017-10-10] MEDS: DIVALPROEX 125 MG CAP.SPRINK PO SCH (08:22)
--- NOTE | 2017-10-11 02:51 | PN ---
DATE: 10/09/2017 This is a late entry of 10/09/2017 covers elements not covered in my initial note of 10/09/2017. SUBJECTIVE: I met with the patient in the evening. The patient remains confused, but overall less anxious, restless, less psychotic and less startled. The latter appears to be helped by the prazosin 3 mg at bedtime for PTSD. REVIEW OF SYSTEMS: Ambulation impaired, in wheelchair. No CV, , pulmonary, eye, ENT system symptoms on review. Reliability poor. MENTAL STATUS EXAM: Oriented to himself. Insight, judgment, recent and remote memory, attention, concentration, fund of knowledge poor, consistent with his diagnosis mentioned in my initial note. IMPRESSION: Major neurocognitive disorder, Alzheimer, vascular with delusion, depression, behavioral disturbance, posttraumatic stress disorder, schizoaffective disorder, bipolar type. PLAN: Continue psychotropics mentioned in my initial note. MAN Eladio APPIAH MD DR: NAVDEEP/phuc JOB#: [id number] / [id number]
--- NOTE | 2017-10-11 21:05 | PDOC ---
Exam Note: Anderson Note: Late of entry for date of service October 10, 2017.Please also refer to the separate dictated note~for this date of service dictated separately.~Patient seen individually. Discussed the patient with Nursing staff reviewed the chart.~ Reviewed interim history and current functioning. Reviewed vital signs,~Labs/ Radiology~and current medications noted below. Continue current treatment with the changes noted in the dictated addendum note Assessment: Vital Signs: Vital Signs Date Time Temp Pulse Resp B/P (MAP) Pulse Ox O2 Delivery O2 Flow Rate FiO2 10/10/17 08:21 95 116/55 10/10/17 05:57 99.3 22 95 Room Air I&O Intake and Output 10/11/17 07:00 Intake Total 480 ml Balance 480 ml Intake Oral 480 ml Current Medications: Meds: Current Medications Acetaminophen (Tylenol) 650 mg PRN Q6HRS PRN PO PAIN / TEMP; Start 09/25/17 at 21:15; Stop 10/10/17 at 16:49; Status DC Multi-Ingredient Ointment (Analgesic [place]) 1 nica PRN QID PRN TP MUSCLE PAIN; Start 09/25/17 at 21:15; Stop 10/10/17 at 16:49; Status DC Al Hydroxide/Mg Hydroxide (Mylanta Plus Xs) 15 ml PRN AFTMEALHC PRN PO DYSPEPSIA; Start 09/25/17 at 21:15; Stop 10/10/17 at 16:49; Status DC Magnesium Hydroxide (Milk Of Magnesia) 2,400 mg PRN QHS PRN PO CONSTIPATION; Start 09/25/17 at 21:15; Stop 09/25/17 at 21:25; Status DC Buspirone HCl (Buspar) 20 mg TID PO Last administered on 09/27/17at 08:11; Start 09/25/17 at 21:30; Stop 09/27/17 at 13:30; Status DC Divalproex Sodium (Depakote Er) 750 mg BID PO Last administered on 09/27/17at 08 :10; Start 09/25/17 at 21:30; Stop 09/27/17 at 13:30; Status DC Donepezil HCl (Aricept) 10 mg HS PO Last administered on 10/09/17at 20:08; Start 09/25/17 at 21:30; Stop 10/10/17 at 16:49; Status DC Memantine (Namenda) 5 mg BID PO Last administered on 10/10/17at 08:21; Start at 21:30; Stop 10/10/17 at 16:49; Status DC Olanzapine (ZyPREXA) 7.5 mg DAILY PO Last administered on 09/27/17at 08:10; Start 09/26/17 at 09:00; Stop 09/27/17 at 13:30; Status DC Trazodone HCl (Desyrel) 50 mg QHS PO Last administered on 10/09/17at 20:08; Start 09/25/17 at 21:30; Stop 10/10/17 at 16:49; Status DC Venlafaxine HCl (Effexor) 50 mg TID PO Last administered on 09/27/17at 13:42; Start 09/25/17 at 21:30; Stop 09/27/17 at 18:11; Status DC Acetaminophen (Tylenol) 650 mg PRN Q6HRS PRN PO PAIN / TEMP; Start 09/25/17 at 21:15; Stop 09/25/17 at 21:18; Status DC Aspirin (Children'S Aspirin) 81 mg DAILY PO Last administered on 10/10/17at 08:21 ; Start 09/26/17 at 09:00; Stop 10/10/17 at 16:49; Status DC Vitamin D (Vitamin D3) 2,000 unit DAILY PO Last administered on 10/10/17 08:21 ; Start 09/26/17 at 09:00; Stop 10/10/17 at 16:49; Status DC Glipizide (Glucotrol) 15 mg DAILY PO Last administered on 10/10/17at 08:20; Start 09/26/17 at 09:00; Stop 10/10/17 at 16:49; Status DC Metoprolol Tartrate (Lopressor) 25 mg BID PO Last administered on 10/10/17at 08: 21; Start 09/25/17 at 21:30; Stop 10/10/17 at 16:49; Status DC Polyethylene Glycol (miraLAX) 17 gm DAILY PO Last administered on 10/10/17at 08: 20; Start 09/26/17 at 09:00; Stop 10/10/17 at 16:49; Status DC Tamsulosin HCl (Flomax) 0.4 mg DAILY PO Last administered on 10/10/17at 08:21; Start 09/26/17 at 09:00; Stop 10/10/17 at 16:49; Status DC Atorvastatin Calcium (Lipitor) 40 mg QHS PO Last administered on 10/09/17at 20:09 ; Start 09/25/17 at 21:30; Stop 10/10/17 at 16:49; Status DC Non-Formulary Medication (Glipizide ) 10 mg DAILY PO ; Start 09/26/17 at 09:00; Stop 09/26/17 at 09:00; Status DC Magnesium Hydroxide (Milk Of Magnesia) 4,800 mg PRN Q8HRS PRN PO CONSTIPATION; Start 09/25/17 at 21:30; Stop 10/10/17 at 16:49; Status DC Metformin HCl (Glucophage) 1,000 mg BIDWMEALS PO Last administered on 10/10/17at 08:20; Start 09/26/17 at 08:00; Stop 10/10/17 at 16:49; Status DC Multivitamins/ Calcium (Thera-M Plus) 1 tab DAILY PO Last administered on at 08:20; Start 09/26/17 at 09:00; Stop 10/10/17 at 16:49; Status DC Non-Formulary Medication (Sodium Fluoride/ Pot Nitrate (Prevident 5000 Enamel Protect)) 1 nica TIDPC DT ; Start 09/26/17 at 08:30; Stop 09/26/17 at 08:30; Status DC Buspirone HCl (Buspar) 20 mg BID PO ; Start 09/27/17 at 21:00; Stop 09/27/17 at 21:00; Status DC Olanzapine (ZyPREXA) 5 mg DAILY PO Last administered on 10/10/17at 08:21; Start 09/28/17 at 09:00; Stop 10/10/17 at 16:49; Status DC Divalproex Sodium (Depakote Sprinkles) 750 mg BID PO Last administered on at 08:22; Start 09/27/17 at 21:00; Stop 10/10/17 at 16:49; Status DC Buspirone HCl (Buspar) 10 mg BID PO ; Start 09/27/17 at 21:00; Stop 09/30/17 at 09:00; Status UNV Prazosin HCl (Minipress) 1 mg HS PO Last administered on 10/02/17at 20:56; Start 09/27/17 at 21:00; Stop 10/03/17 at 18:43; Status DC Buspirone HCl (Buspar) 10 mg BID PO Last administered on 10/10/17at 08:21; Start 09/30/17 at 09:00; Stop 10/10/17 at 16:49; Status DC Buspirone HCl (Buspar) 20 mg BID PO Last administered on 09/29/17at 20:50; Start 09/27/17 at 21:00; Stop 09/29/17 at 21:01; Status DC Venlafaxine HCl (Effexor) 75 mg BID92 PO Last administered on 09/29/17at 13:31; Start 09/28/17 at 09:00; Stop 09/29/17 at 15:55; Status DC Venlafaxine HCl (Effexor) 75 mg DAILY PO Last administered on 10/10/17at 08:20; Start 09/30/17 at 09:00; Stop 10/10/17 at 16:49; Status DC Olanzapine (ZyPREXA ZYDIS) 1.25 mg PRN Q2HR PRN PO PSYCHOSIS Last administered on 09/30/17at 17:46; Start 09/30/17 at 17:30; Stop 10/10/17 at 16:49; Status DC Prazosin HCl (Minipress) 2 mg HS PO Last administered on 10/06/17at 19:31; Start 10/03/17 at 21:00; Stop 10/07/17 at 18:40; Status DC Prazosin HCl (Minipress) 3 mg HS PO Last administered on 10/09/17at 20:09; Start 10/07/17 at 21:00; Stop 10/10/17 at 16:49; Status DC Active Scripts Active Reported Venlafaxine Hcl 75 Mg Tablet 75 Mg PO DAILY Glucotrol (Glipizide) 5 Mg Tablet 15 Mg PO DAILY Prazosin Hcl 1 Mg Capsule 3 Mg PO HS Olanzapine Odt (Olanzapine) 5 Mg Tab.rapdis 1.25 Mg PO PRN Q2HR PRN MDD 10mg Olanzapine 5 Mg Tablet 5 Mg PO DAILY Analgesic [place] (Methyl Salicylate/Menthol) 28 Gm Oint...g. 1 Nica TP PRN QID PRN Advanced Antacid Liquid (Mag Hydrox/Al Hydrox/Simeth) 355 Ml Oral.susp 15 Ml PO PRN AFTMEALHC PRN Trazodone Hcl 50 Mg Tablet 50 Mg PO QHS Miralax (Polyethylene Glycol 3350) 17 Gm Powd.pack 17 Gm PO DAILY Namenda (Memantine Hcl) 10 Mg Tablet 5 Mg PO BID Multivitamins (Multivitamin) 1 Each Tablet 1 Each PO DAILY Milk Of Magnesia (Magnesium Hydroxide) 2,400 Mg/10 Ml Oral.susp 4,800 Mg PO PRN Q8HRS PRN Metoprolol Tartrate 25 Mg Tablet 25 Mg PO BID Metformin Hcl 1,000 Mg Tablet 1,000 Mg PO BIDWMEALS Tamsulosin Hcl 0.4 Mg Cap.er.24h 0.4 Mg PO DAILY Depakote Er (Divalproex Sodium) 250 Mg Tab.er.24h 750 Mg PO BID Vitamin D3 (Cholecalciferol (Vitamin D3)) 1,000 Unit Tablet 2,000 Unit PO DAILY Buspirone Hcl 10 Mg Tablet 10 Mg PO BID Atorvastatin Calcium 40 Mg Tablet 40 Mg PO QHS Aspirin 81 Mg Tab.chew 81 Mg PO DAILY Aricept (Donepezil Hcl) 10 Mg Tablet 10 Mg PO HS Tylenol (Acetaminophen) 325 Mg Tablet 650 Mg PO PRN Q6HRS PRN MDD 4000mg I have reviewed the current psychotropics carefully including drug interactions. Risk benefit ratio favors no change other than as noted in my dictated progress note. Diagnosis: Problems: (1) Mood swings (2) Anxiety disorder (3) Dementia in Alzheimer's disease with delusions (4) Dementia in Alzheimer's disease with depression (5) Dementia, vascular, with delusions (6) Dementia, vascular, with depression (7) Impulse control disorder ARLYN APPIAH MD October 11, 2017 21:05
--- NOTE | 2017-10-12 11:22 | DS ---
DATE OF DISCHARGE: 10/10/2017 DISCHARGE SUMMARY/PSYCHIATRIC PROGRESS NOTE This is a late entry, date of service 10/10/2017, covers elements not covered in my initial note of 10/10/2017. REASON FOR ADMISSION: Please refer to the admission history for details. Briefly, the patient is a 72-year-old male referred from [facility] by Dr. Rey, psychiatrist and his primary care physician on account of being combative with the residents, being extremely volatile, aggressive, disruptive, having failed outpatient psychiatric interventions for his progressive dementia with delusions, behavioral disturbance and a history of PTSD from multiple traumatic experiences during the [place]. He also has a prior diagnosis of schizoaffective disorder versus bipolar disorder. SIGNIFICANT FINDINGS AND CLINICAL COURSE: Following admission, the patient was seen daily individually by myself from a psychiatric standpoint, medical followup per Dr. Palma/Dr. Torres. The patient remained quite confused initially, quite easily startled, somewhat explosive, labile. Adjustments were made in his psychotropics and he seemed to respond to a combination of prazosin 3 mg at bedtime for his PTSD symptoms in addition to Aricept 10 mg a day, BuSpar 10 mg b.i.d., Depakote Sprinkles 750 mg b.i.d. with valproic acid levels slightly subtherapeutic at 48, but clinically adequate. He was also on Namenda 5 mg b.i.d., trazodone 50 mg at bedtime, Effexor 75 mg daily, Zyprexa 5 mg daily prior to discharge on 10/10/2017. REVIEW OF SYSTEMS: Ambulation impaired, in wheelchair. No CV, , pulmonary, eye, ENT system symptoms on review. Reliability poor. MENTAL STATUS EXAM: Oriented to himself. Insight, judgment, recent and remote memory, attention, concentration, fund of knowledge poor, consistent with his diagnosis. This note covers elements not covered in my initial note for 10/10/2017. CONDITION AT DISCHARGE: Improved. FINAL DIAGNOSES: Major neurocognitive disorder, Alzheimer, vascular with delusion, depression, behavioral disturbance, PTSD, anxiety disorder, unspecified; impulse control disorder, unspecified. History of schizoaffective disorder, bipolar type, mixed with psychotic features, in partial remission. Rest unchanged from admission. DISCHARGE MEDICATIONS: Please refer to the EMRAD. DISCHARGE INSTRUCTIONS: Outpatient psychiatric and medical followup at [facility]. Time for discharge day management greater than 30 minutes. ARLYN APPIAH MD DR: [email or web address]/phuc JOB#: [id number] / [id number]
== END 2017-10-10 16:30 | disposition home or self-care (01) | DRG 885 ==
LOC: ER 16:47 → GEROPSY 19:21
PROVIDERS: ADMIT Psychiatry & Neurology Psychiatry; ATTEND Psychiatry & Neurology Psychiatry
DX: F25.0 Schizoaffective disorder, bipolar type (principal); G30.9 Alzheimer's disease, unspecified; F01.51 Vascular dementia, unspecified severity, with behavioral disturbance; E11.9 Type 2 diabetes mellitus without complications; F02.81 Dementia in other diseases classified elsewhere, unspecified severity, with behavioral disturbance; E78.5 Hyperlipidemia, unspecified; F43.10 Post-traumatic stress disorder, unspecified; F63.9 Impulse disorder, unspecified; F41.9 Anxiety disorder, unspecified; I10 Essential (primary) hypertension; I25.10 Atherosclerotic heart disease of native coronary artery without angina pectoris; N40.0 Benign prostatic hyperplasia without lower urinary tract symptoms; Z79.899 Other long term (current) drug therapy; Z91.19 Patient's noncompliance with other medical treatment and regimen
CPT/HCPCS: 36415; 70450; 80053; 80061; 80164; 81001; 82306; 82607; 82947; 83036; 83540; 83550; 83690; 83735; 84436; 84443; 84480; 85025; 86593; 93005; 99285-25